=== PATIENT | male | born 1940 | race Caucasian/White ===

== ENCOUNTER 2017-04-08 18:31 | Inpatient (IN) | payer MEDICARE ==
[~2017-04-08 18:31] MED LIST: ISOVUE-370 76%-LOCM 1 ML ONE
[2017-04-08] MEDS ORDERED: diphenhydrAMINE 50 MG/ML VIAL ONE (19:33)
[2017-04-08] MEDS ORDERED: Famotidine 20 MG TAB ONE (19:33)
[2017-04-08] MEDS ORDERED: methylPREDNISolone Sod Succ/PF 125 MG/2 ML VIAL ONE (19:33)
[2017-04-08 19:37] LABS: #Basophils 0.1 thou/uL (0.0-0.2); #Eosinphils 0.2 thou/uL (0.0-0.7); #Lymphocytes 1.8 thou/uL (1.20-3.40); #Monocytes 0.9 thou/uL (0.11-0.59); #Neutrophils 4.4 thou/uL (1.40-6.50); %Eosinophils 3.2 % (0.0-10.0); %Lymphocytes 24.6 % (21.0-51.0); Hematocrit 39.9 % (42.0-52.0); Mean Platelet Volume 7.5 fL (7.4-10.4); Red Blood Cell (RBC) Count 3.98 mill/uL (4.70-6.10); White Blood Cell (WBC) Count 7.4 thou/uL (4.8-10.8)
[2017-04-08] MEDS ORDERED: Water For Inject, Bacteriostat 30 ML ONE (19:37)
[2017-04-08 19:44] LABS: PTT 26.1 SEC (22.9-36.1); Prothrombin Time 13.9 SEC (12.0-14.7)
[2017-04-08 19:58] LABS: Digoxin Less than 0.15 ng/mL (0.8-2.0)
[2017-04-08 20:00] LABS: ALT (SGPT) 59 U/L (8-55); AST (SGOT) 45 U/L (5-34); Alkaline Phosphatase 72 U/L (40-150); Anion Gap 16 mmol/L (10-20); BUN (Urea Nitrogen) 18 mg/dL (8.4-25.7); Bilirubin, Total 0.6 mg/dL (0.2-1.2); CK (CPK) 187 U/L (30-200); Calc. Creatinine Clearance 0 mL/min (70-130); Calcium 7.4 mg/dL (7.8-10.44); Carbon Dioxide 24 mmol/L (23-31); Chloride 103 mmol/L (98-107); Estimated GFR-MDRD 58; Globulin 2.8 g/dL (2.4-3.5); Lipase 23 U/L (8-78); Protein, Total 6.6 g/dL (5.8-8.1)
[2017-04-08 20:03] LABS: Troponin I 0.013 ng/mL (< 0.028)
[2017-04-08] MEDS ORDERED: Calcium Chloride 1 GM/10 ML Abboject SYRINGE ONE (20:48)
--- NOTE | 2017-04-08 22:24 | CT ---
CT ANGIO OF CHEST PERFORMED WITH INTRAVENOUS CONTRAST ENHANCEMENT WITH 3D RECONSTRUCTIONS 04/08/17 HISTORY: Chest pain. Elevated D-dimer. The lungs are clear of any infiltrative process. There is some mild chronic appearing lung changes s een. Old left rib fractures. No pulmonary nodules are identified. No significant mediastinal or hilar adenopathy. The thoracic aorta is normal in caliber. There is good pulmonary artery opacification with no CT evidence for pulmonary embolus. The visualized liver parenchyma shows no focal findings. IMPRESSION: No CT evidence for pulmonary embolus. POS: [facility]
[2017-04-08] MEDS ORDERED: Magnesium Sulfate 3 GM in Sodium Chloride 0.9% 100 ML IVPB SCH (22:30)
[2017-04-09] MEDS ORDERED: Atropine Sulfate 1 mg/10 ml Syringe ONE (00:02)
[2017-04-09] MEDS ORDERED: DOPamine 400 MG/D5W 250 ML 250 ML ONE (00:16)
[2017-04-09] MEDS ORDERED: Ondansetron HCl/PF 4 MG/2 ML Vial ONE (00:37)
[2017-04-09 01:21] LABS: #Lymphocytes 1.5 thou/uL (1.20-3.40); #Monocytes 0.1 thou/uL (0.11-0.59); #Neutrophils 8.9 thou/uL (1.40-6.50); %Basophils 0.4 % (0.0-1.0); %Eosinophils 0.3 % (0.0-10.0); %Lymphocytes 13.9 % (21.0-51.0); %Monocytes 1.3 % (0.0-10.0); Hematocrit 45.4 % (42.0-52.0); Mean Platelet Volume 7.7 fL (7.4-10.4); Red Blood Cell (RBC) Count 4.52 mill/uL (4.70-6.10); White Blood Cell (WBC) Count 10.6 thou/uL (4.8-10.8)
[2017-04-09 01:45] LABS: Troponin I Less than 0.010 ng/mL (< 0.028)
[2017-04-09] MEDS ORDERED: Sodium Chloride 0.45% 1,000 ML IV SCH (02:45)
[2017-04-09] MEDS ORDERED: Senokot 8.6 MG TAB PO PRN ×2 (03:12)
[2017-04-09] MEDS ORDERED: Bisacodyl 5 MG TAB PO PRN ×2 (03:12)
[2017-04-09] MEDS ORDERED: Acetaminophen 325 MG TAB PO PRN (03:12)
[2017-04-09] MEDS ORDERED: Mag-Al 1200 mg/1200 mg/30 ML UDCUP PO PRN (03:12)
[2017-04-09] MEDS ORDERED: Benzonatate 100 MG CAP PO PRN (03:12)
[2017-04-09] MEDS ORDERED: Ondansetron HCl/PF 4 MG/2 ML Vial IVP PRN (03:12)
[2017-04-09] MEDS ORDERED: traMADol HCl 50 MG TAB PO PRN (03:12)
[2017-04-09] MEDS ORDERED: Loratadine 10 MG TAB PO PRN (03:12)
[2017-04-09] MEDS ORDERED: Diabetic Tussin 200 MG/10 ML UDCUP PO PRN (03:12)
[2017-04-09] MEDS ORDERED: hydrALAZINE 20 MG/ML VIAL SLOW IVP PRN (03:12)
[2017-04-09] MEDS ORDERED: Calcium Carbonate 500 MG ChewTAB PO PRN (03:12)
[2017-04-09] MEDS ORDERED: Nitroglycerin 0.4 MG TAB (25 Tab Bottle) SL PRN (03:12)
[2017-04-09] MEDS ORDERED: Ondansetron ODT 4 MG TAB PO PRN (03:12)
[2017-04-09 03:15] VITALS: BMI 27.0
[2017-04-09] MEDS ORDERED: Furosemide 20 MG TAB PO SCH (03:45)
[2017-04-09 05:19] LABS: #Lymphocytes 0.5 thou/uL (1.20-3.40); #Monocytes 0.2 thou/uL (0.11-0.59); #Neutrophils 11.5 thou/uL (1.40-6.50); %Eosinophils 0.2 % (0.0-10.0); %Lymphocytes 4.2 % (21.0-51.0); %Monocytes 1.8 % (0.0-10.0); Hematocrit 44.7 % (42.0-52.0); Mean Platelet Volume 8.1 fL (7.4-10.4); Red Blood Cell (RBC) Count 4.47 mill/uL (4.70-6.10); White Blood Cell (WBC) Count 12.3 thou/uL (4.8-10.8)
[2017-04-09 05:46] LABS: Anion Gap 21 mmol/L (10-20); BUN (Urea Nitrogen) 20 mg/dL (8.4-25.7); Calc. Creatinine Clearance 43 mL/min (70-130); Calcium 8.2 mg/dL (7.8-10.44); Carbon Dioxide 18 mmol/L (23-31); Chloride 103 mmol/L (98-107); Estimated GFR-MDRD 42; Magnesium 1.2 mg/dL (1.6-2.6)
[2017-04-09] MEDS: DOPamine 400 MG/D5W 250 ML 250 ML IVPB PRN (05:52)
--- NOTE | 2017-04-09 07:46 | HP ---
DATE OF ADMISSION: 04/09/2017 PRIMARY CARE PHYSICIAN: Juanito Chawla MD CHIEF COMPLAINT: Chest discomfort. HISTORY OF PRESENT ILLNESS: Mr. Giraldo is a very pleasant 76-year-old male with past [facility] history of hypertension, who presented to the ER with the above-mentioned complaints. The histo ry is mainly obtained by the patient himself and his present at the bedside. The electronic ok dical records have been reviewed and the case has been discussed with the admitting ER physician. According to Mr. Giraldo, he has been feeling unwell for the last 3 days. This morning, he started t o have some chest pressure associated with some shortness of breath and diaphoresis. He attributes these symptoms to sinus congestion. He took his blood pressure earlier this morning and found to be low and he presented to the ER. In the emergency room, his blood pressure was 173/74. He was found to be bradycardic with a pulse o f 47. His oxygen saturation was adequate at 98% on room air. He also did give some history of ting ling in his fingers which is ongoing, but his main complaint was overall generalized weakness and ma laise. A 12-lead EKG done in the emergency room showed sinus bradycardia with first degree AV block and right bundle branch block. EKG was repeated multiple times. Second EKG was again consistent w ith first-degree AV block and third EKG showed complete heart block with wide QRS rhythm with freque nt PVCs. The patient did alvaro down to 30s at one point of time and EKG was consistent with complet e heart block. He did receive atropine for this. His calcium and magnesium were found to be low as well as for which he also received supplementation and is now more hemodynamically stable with hear t rate in the higher 40s, low 50s. He is currently being admitted for symptomatic bradycardia to cr itical care unit. He is otherwise awake, alert, oriented x3. The patient otherwise denies any recent illnesses. No fever, no chills, no cough. He had some diap horesis and shortness of breath today, but denies any orthopnea, PND, dyspnea on exertion, or lower extremity edema. He denies any nausea, vomiting, diarrhea, hematochezia, or melena. He does compla in of some urinary hesitancy since he has received calcium and magnesium in the emergency room. He does have some complaints of nighttime urinary retention, given his history of prostatic enlargement per the patient. PAST MEDICAL HISTORY: Hypertension. PAST SURGICAL HISTORY: Cholecystectomy and bilateral hip surgery. PSYCHIATRIC HISTORY: No anxiety or depression. SOCIAL HISTORY: He is and lives with his family. No history of drug, tobacco or alcohol ab use. FAMILY HISTORY: No significant family history of premature coronary artery disease, stroke, or canc er. ALLERGIES: Include IODINE and IODINE CONTAINING PRODUCTS. CURRENT MEDICATIONS: Include omeprazole 20 mg daily, losartan/hydrochlorothiazide 100/25 mg daily, fish oil 1000 mg daily, azelastine eyedrops b.i.d. and aspirin 81 mg daily. REVIEW OF SYSTEMS: The following complete review of systems was negative, unless otherwise mentione d in the HPI or below: Constitutional: Weight loss or gain, ability to conduct usual activities. Skin: Rash, itching. Eyes: Double vision, pain. ENT/Mouth: Nose bleeding, neck stiffness, pain, tenderness. Cardiovascular: Palpitations, dyspnea on exertion, orthopnea. Respiratory: Shortness of breath, wheezing, cough, hemoptysis, fever or night sweats. Gastrointestinal: Poor appetite, abdominal pain, heartburn, nausea, vomiting, constipation, or diar padma. Genitourinary: Urgency, frequency, dysuria, nocturia. Musculoskeletal: Pain, swelling. Neurologic/Psychiatric: Anxiety, depression. Allergy/Immunologic: Skin rash, bleeding tendency. Negative except for those mentioned in the history and physical. PHYSICAL EXAMINATION: VITAL SIGNS: Most recent vital signs include, temperature 98.3, heart rate anywhere from 45 to 50, respirations 16, saturating 100% on room air, blood pressure 146/40. GENERAL: He does appear somewhat clammy, but awake, alert, oriented x3. He is diaphoretic. No acu te distress. is at bedside. HEENT: Mucous membrane is moist and pink. No oropharyngeal exudate or erythema. Head is normoceph alic, atraumatic. Pupils equal, reactive to light and accommodation. Extraocular movements intact. NECK: Supple without any lymphadenopathy, JVD or bruit. CHEST: Clear to auscultation with the exception of few bibasilar rales. CARDIOVASCULAR: Rate and rhythm is regular, but somewhat slow and bradycardic range on auscultation . ABDOMEN: Soft, nontender, nondistended, positive bowel sounds. No guarding, rebound or rigidity. EXTREMITIES: Free of any cyanosis, clubbing, or edema. NEUROLOGIC: Nonfocal. SKIN: Warm and dry to touch. PSYCHIATRIC: Normal affect. VASCULAR: +2 pedal pulses felt bilaterally. LABORATORY DATA: CBC shows WBC of 7.4, hemoglobin 14, platelet count of 224. Coagulation studies w ithin normal limits. Serum chemistries unremarkable except for calcium low at 7.4 with magnesium 0. 7, AST 45, ALT 59, normal total bilirubin and alkaline phosphatase. Serial cardiac enzymes, troponi n less than 1.0 with normal CK-MB twice. Digoxin level is less than 0.15. CT angio was done in the emergency room, which was negative for any evidence of pulmonary embolism. A 12-lead EKG by my review, the first EKG showed sinus bradycardia with AV block of first degree. Second EKG shows sinus bradycardia with a heart rate of 46 with complete right bundle branch block a nd third EKG showed complete heart block with ventricular rate of 82 beats per minute with wide QRS and frequent PVCs. The patient's chest x-ray reportedly was unremarkable at the outside emergency r oom. His D-dimer was elevated and his BNP was 355. IMPRESSION AND PLAN: 1. Sinus bradycardia. Dr. Le geographic information systems engineer for Cardiology was consulted after the patient developed complete heart block. On his recommendation, the patient has been started on dopamine drip and temp orary pacer pads have been placed in. He is getting magnesium and calcium supplementation and reche ck shortly here on. He will be continued to monitor in the CCU and Cardiology will see the patient in the morning. Atropine also has been given in the ER x2. We will continue the dopamine drip for now and monitor for any hemodynamic instability. Thankfully, the patient is hemodynamically stable at this point. We will also obtain a transthoracic echocardiogram to ascertain the cause of his sin us bradycardia, but it is most likely secondary to electrolyte imbalances. We will continue to tren d serial cardiac enzymes, the likelihood of acute coronary syndrome is low at this time. He will be on continuous heart monitoring. 2. Hypomagnesemia and hypocalcemia. Hypocalcemia is likely secondary to low magnesium at this time . Both have been supplemented and we will recheck. We will also check a PTH and vitamin D level to rule out other causes of hypocalcemia. 3. History of hypertension that we will restart his home medications of losartan and hydrochlorothi azide if he remains stable. We will hold off for now. 4. Urinary retention. The patient is complaining of difficulty with urination and hesitancy for th e last few hours. The bedside bladder scan was done which showed 90 mL of urine. He has received 1 liter of IV fluids in the emergency room. We will hold off on any more IV fluids as he is hemodyna mically stable and give him 1 dose of Lasix. He appears somewhat on the fluid overloaded side. Ech o has been ordered. 5. Code status: FULL CODE, discussed with the patient. 6. Deep venous thrombosis and gastrointestinal prophylaxis. 7. Disposition: Mr. Giraldo is being admitted for symptomatic bradycardia and further management wi ll depend upon his clinical course. He will be kept n.p.o. for Cardiology evaluation in the morning . Continue CCU monitoring at this time. Estimated length of stay at least 2-3 midnights.
[2017-04-09] MEDS ORDERED: FLU VACC TS2017-18 (>65YR) 0.5 ML SYRINGE IM ONE (09:00)
[2017-04-09] MEDS ORDERED: Magnesium 2 GM/NS 0.9% 100 ML 2 GM in Premix Bag 1 BAG IVPB SCH (09:30)
[2017-04-09] MEDS: Famotidine 20 MG TAB PO SCH ×2 (09:49→20:11)
[2017-04-09] MEDS ORDERED: Pot Chloride/Pot Bicarb/Cit Ac 25 mEq Effervescent Tablet PO SCH (10:00)
[2017-04-09] MEDS ORDERED: Magnesium Sulfate 4 GM in Sodium Chloride 0.9% 250 ML 250 ML IVPB SCH (10:30)
[2017-04-09] MEDS: Fluticasone Propionate Nasal Spray 16 gm Bottle NASAL SCH (10:37)
--- NOTE | 2017-04-09 10:42 | CON ---
DATE OF CONSULTATION: 04/09/2017 CARDIOLOGY CONSULTATION REASON FOR CONSULTATION: Complete heart block. HISTORY OF PRESENT ILLNESS: Mr. Giraldo is a very pleasant 76-year-old white gentleman who comes to the hospital for lightheadedness and slight chest discomfort. He presented last night and he was fo und to be in complete heart block, heart rate in the mid to upper 30s. He was admitted and started on a dopamine drip and Cardiology has been consulted for further evaluation. He has been on dopamin e since last night, his heart rate did not really change much, it has been in the 40s to 50s, which is similar to what he was downstairs when he came in. His blood pressure has remained stable in the 140s to 150s. He tells me that he has been feeling different since Tuesday, so about 3 or 4 days ago, he has been feeling lightheaded, felt he was going to pass out at one point, but he was workin g outside really hard. He has been taking it easy for the last few days until yesterday. He decide d he needed to come in because he felt so tired and weak. He denies any chest pain, tightness or pr essure currently. PAST MEDICAL HISTORY: Hypertension. PAST SURGICAL HISTORY: 1. Cholecystectomy. 2. Bilateral hip surgery. SOCIAL HISTORY: No alcohol, tobacco or drugs. FAMILY HISTORY: Noncontributory. OUTPATIENT MEDICATIONS: Include, 1. Omeprazole 20 mg a day. 2. Losartan with hydrochlorothiazide 100/25 mg a day. 3. Fish oil 1000 mg b.i.d. 4. Azelastine eyedrops b.i.d. 5. Aspirin 81 a day. ALLERGIES: IODINE. REVIEW OF SYSTEMS: A 12-point review of systems was done and is all negative unless stated in the hi story of present illness. PHYSICAL EXAMINATION: VITAL SIGNS: Temperature 98.3, pulse 47, respiratory rate 17, satting 100% on room air, blood press ure 167/52. GENERAL: Awake, alert, oriented x3, in no distress. HEENT: Normocephalic, atraumatic. NECK: Supple. LUNGS: Clear. CARDIOVASCULAR: S1, S2, no S3 or S4. No murmurs or rubs. ABDOMEN: Soft, positive bowel sounds. EXTREMITIES: No edema. SKIN: Warm and dry. LABORATORY DATA AND IMAGIN. Laboratory work was reviewed. Hematology on admission, white count of 7.4 with hemoglobin of 14 , hematocrit of 39, and platelet count of 224. Coags were unremarkable. CBC: His white count has increased to 12.3. Chemistries on admission were unremarkable with potassium of 3.6, calcium was lo w at 7.4, and magnesium was very low at 0.7. He had 3 grams and is up to 1.2 and potassium is down to 3.4, creatinine went from 1.2-1.6, troponin has been negative x2. BNP was 424. Vitamin D and PT H were normal. Digoxin level was undetectable. 2. CT of the chest was unremarkable with no evidence of PE. 3. EKG shows complete heart block. On my evaluation today, he was in complete heart block briefly and now he is in 2:1 block with intermittent complete heart block. ASSESSMENT AND PLAN: 1. Third degree atrioventricular block. 2. Severe hypomagnesemia. 3. Hypertension. PLAN: Replace magnesium aggressively. He already received 3 grams and I am going to give him 4 mor e grams today to try to get magnesium up to 2. After magnesium has been replaced, we will replace p otassium. He is currently hemodynamically stable and asymptomatic. We will hold off on a temporary pacemaker at this time. His dopamine infusion did not really change his heart rate, so we will sto p it and see how his heart rate does. Hopefully by replacing his magnesium, his heart rate will imp rove. Otherwise, we will plan on doing a permanent pacemaker on Tuesday. We will get blood cultures to make sure that the elevated white count is nothing infectious. Most likely cause of his hypomag nesemia is hydrochlorothiazide and his losartan, so will have to stop this on discharge. Thank you for letting us to participate in the care of your patient. We will follow. Over 45 minutes of critical care were delivered bedside.
[2017-04-09] MEDS: Pot Chloride/Pot Bicarb/Cit Ac 25 mEq Effervescent Tablet PO SCH (11:16)
[2017-04-09] MEDS: HYDROcodone/Acetaminophen 5/325 mg Tablet PO PRN ×2 (13:16→18:14)
--- NOTE | 2017-04-09 15:34 | PDOC.PN ---
- Subjective Encounter Start Date: 04/09/17 Encounter Start Time: 15:30 Subjective: f/u for 3rd degree heart block and chest pain. Tx initially with Dopamine -: and Atropine. Also tx for hypomagnesemia and hypokalemia. Pt -: asymptomatic currently. - Objective MAR Reviewed: Yes Vital Signs & Weight: Vital Signs (12 hours) Temp Pulse Resp Pulse Ox 04/09/17 12:00 98.2 F 04/09/17 08:00 98.4 F 44 L 20 100 04/09/17 07:57 100 04/09/17 03:49 98.3 F 47 L 16 100 Weight Weight 167 lb 8.821 oz Most Recent Monitor Data Heart Rate from ECG 50 NIBP 120/45 NIBP BP-Mean 94 Respiration from ECG 18 SpO2 100 I&O: 04/08/17 04/09/17 04/10/17 06:59 06:59 06:59 Intake Total 209 606 Output Total 225 660 Balance -16 54 Result Diagrams: 04/09/17 04:17 04/09/17 04:17 Additional Labs: Laboratory Tests 04/08/17 04/08/17 04/08/17 15:50 19:28 19:28 WBC Potassium 3.6 Carbon Dioxide 24 Creatinine 1.22 Magnesium AST 45 H ALT 59 H B-Natriuretic Peptide 355.8 H 25-OH Vitamin D Total PTH Intact Digoxin Less than 0.15 L 04/08/17 04/09/17 04/09/17 19:38 01:05 04:17 WBC 10.6 Potassium Carbon Dioxide Creatinine Magnesium 0.7 L* 1.2 L AST ALT B-Natriuretic Peptide 25-OH Vitamin D Total PTH Intact Digoxin 04/09/17 04/09/17 04/09/17 04:17 04:17 04:17 WBC Potassium Carbon Dioxide Creatinine Magnesium AST ALT B-Natriuretic Peptide 424.6 H 25-OH Vitamin D Total 45.4 PTH Intact 70.3 Digoxin Radiology Reviewed by me: Yes (CTA chest - no PE's) EKG Reviewed by me: Yes (Tele - 3rd degree AVB) Phys Exam - Physical Examination Constitutional: NAD HEENT: PERRLA, oral pharynx no lesions Neck: no JVD, supple Respiratory: no wheezing, clear to auscultation bilateral Cardiovascular: RRR Gastrointestinal: soft, non-tender, no distention, positive bowel sounds Musculoskeletal: no edema, pulses present Neurological: normal sensation, moves all 4 limbs Psychiatric: A&O x 3 Skin: normal turgor, cap refill <2 seconds Dx/Plan (1) Third degree heart block Code(s): I44.2 - ATRIOVENTRICULAR BLOCK, COMPLETE Status: Acute Comment: Complete heart block, plan for PM placement on 04/11/17, avoid AV paige blocking agents (2) KRISTYN (acute kidney injury) Code(s): N17.9 - ACUTE KIDNEY FAILURE, UNSPECIFIED Status: Acute Comment: Mild KRISTYN, avoid nephrotoxic meds and contrast media (3) CKD (chronic kidney disease) stage 2, GFR 60-89 ml/min Code(s): N18.2 - CHRONIC KIDNEY DISEASE, STAGE 2 (MILD) Status: Chronic (4) Hypomagnesemia Code(s): E83.42 - HYPOMAGNESEMIA Status: Acute Comment: s/p total Mg 6gm IV given, check Mg++ level in am (5) Hypokalemia Code(s): E87.6 - HYPOKALEMIA Status: Acute Comment: Replace KCL and repeat K + level in am - Plan plan discussed w/ family, DVT proph w/SCDs Continue supportive mgmt -: Avoid AV paige blocking agents -: Plan for PM placement on 04/11/17 -: Replace Mg++ and KCL -: AM lab: CMP, CBC, Mg++, B12/Folate * .
--- NOTE | 2017-04-09 17:04 | CON ---
DATE OF CONSULTATION: 04/09/2017 Ed Giraldo is a 76-year-old pleasant gentleman from [place], [place], who [place] [facility] [place] and was found to have bradycardia. He was told to come to the hospital here at [place]. He subsequently complained of apparently so me difficulty breathing and some severe chest pain. CT chest angio was done which was negative. Fo rmer smoker, quit smoking 30 years ago. Complains of some numbness and tingling in his hands. PAST MEDICAL HISTORY: Mainly for hypertension. PAST SURGICAL HISTORY: Gallbladder, colon resection for diverticulitis, orthopedic surgery. ALLERGIES: IODINE. MEDICATIONS: List of medicine from home, Prozac 20, vitamin, losartan, fish oil. PHYSICAL EXAMINATION: GENERAL: He appears to be in no distress. His pulse is 42 on dopamine. VITAL SIGNS: Blood pressure 160/60. CHEST: Decreased breath sounds, no wheezing. CARDIAC: Normal S1, S2. No gallops. ABDOMEN: Soft, no masses. LABORATORY DATA: White count 12,000, H\T\H 15 and 43, platelet count 294, creatinine 1.6. IMPRESSION: 1. Dyspnea, no evidence of pulmonary emboli, no significant pulmonary issues at this time. 2. Bradycardia. 3. Hypertension. Await cardiac input. Otherwise, supportive care. DVT prophylaxis and proton pump inhibitors. We w ill follow while in the ICU.
[2017-04-09] MEDS: ALPRAZolam 0.25 MG TAB PO PRN (20:11)
[2017-04-10 04:59] LABS: ALT (SGPT) 49 U/L (8-55); AST (SGOT) 27 U/L (5-34); Alkaline Phosphatase 62 U/L (40-150); Anion Gap 13 mmol/L (10-20); BUN (Urea Nitrogen) 27 mg/dL (8.4-25.7); Bilirubin, Total 0.7 mg/dL (0.2-1.2); Calc. Creatinine Clearance 50 mL/min (70-130); Calcium 7.7 mg/dL (7.8-10.44); Carbon Dioxide 25 mmol/L (23-31); Chloride 105 mmol/L (98-107); Estimated GFR-MDRD 50; Globulin 2.9 g/dL (2.4-3.5); Protein, Total 6.5 g/dL (5.8-8.1)
[2017-04-10 05:26] LABS: Band 1 % (5-11); Hematocrit 36.2 % (42.0-52.0); Macrocytosis SLIGHT = 6-15 cells (100X) (0-5/hpf); Mean Platelet Volume 8.1 fL (7.4-10.4); Neutrophil 81 % (42-75); Reactive Lymphocytes 1 % (0-10); Red Blood Cell (RBC) Count 3.57 mill/uL (4.70-6.10); White Blood Cell (WBC) Count 12.5 thou/uL (4.8-10.8)
[2017-04-10] MEDS: Fluticasone Propionate Nasal Spray 16 gm Bottle NASAL SCH (08:54)
[2017-04-10] MEDS: ALPRAZolam 0.25 MG TAB PO PRN ×2 (08:54→15:59)
--- NOTE | 2017-04-10 09:40 | PDOC.PN ---
- Subjective Encounter Start Date: 04/10/17 Encounter Start Time: 09:38 Patient seen and examined. No new complaints. No overnight events. c/o sinus blockage and fatigue. No chest pain or sob. at bedside. sitting up in chair. off dopamine drip. - Objective MAR Reviewed: Yes Vital Signs & Weight: Vital Signs (12 hours) Temp Pulse Resp Pulse Ox 04/10/17 08:00 98.5 F 46 L 17 100 04/10/17 07:00 100 04/10/17 03:00 98.3 F 04/09/17 23:00 98.0 F Weight Weight 167 lb 8.821 oz Most Recent Monitor Data Heart Rate from ECG 57 NIBP 149/46 NIBP BP-Mean 70 Respiration from ECG 27 SpO2 100 I&O: 04/09/17 04/10/17 04/11/17 06:59 06:59 06:59 Intake Total 209 2036 400 Output Total 225 1560 425 Balance -16 476 -25 Result Diagrams: 04/10/17 03:50 04/10/17 03:50 EKG Reviewed by me: Yes Phys Exam - Physical Examination Constitutional: NAD HEENT: sclera anicteric Neck: supple reduced breath sounds. nasal congestion present Respiratory: no rales, wheezing present bradycardic Musculoskeletal: no edema Neurological: non-focal, moves all 4 limbs Psychiatric: normal affect, A&O x 3 Skin: no rash, normal turgor Dx/Plan (1) Sinusitis nasal Code(s): J32.9 - CHRONIC SINUSITIS, UNSPECIFIED Status: Acute (2) Sinusitis, acute Code(s): J01.90 - ACUTE SINUSITIS, UNSPECIFIED Status: Acute (3) KRISTYN (acute kidney injury) Code(s): N17.9 - ACUTE KIDNEY FAILURE, UNSPECIFIED Status: Acute Comment: Mild KRISTYN, avoid nephrotoxic meds and contrast media (4) Hypokalemia Code(s): E87.6 - HYPOKALEMIA Status: Acute Comment: Replace KCL and repeat K + level in am (5) Hypomagnesemia Code(s): E83.42 - HYPOMAGNESEMIA Status: Acute Comment: s/p total Mg 6gm IV given, check Mg++ level in am (6) Third degree heart block Code(s): I44.2 - ATRIOVENTRICULAR BLOCK, COMPLETE Status: Acute Comment: Complete heart block, plan for PM placement on 04/11/17, avoid AV paige blocking agents - Plan cont current plan of care, plan discussed w/ family, continue antibiotics, out of bed/ambulate, DVT proph w/SCDs * . Mg level better Monitor. start on oral MgO. check AM labs. f/u with cardiology - ?PM in AM. Monitor HR closely. start Zpak for sinusitis Duoneb for wheezing.
[2017-04-10] MEDS: HYDROcodone/Acetaminophen 5/325 mg Tablet PO PRN (10:07)
[2017-04-10 10:17] LABS: #Eosinphils 0.1 thou/uL (0.0-0.7); #Lymphocytes 1.2 thou/uL (1.20-3.40); #Monocytes 1.1 thou/uL (0.11-0.59); #Neutrophils 12.8 thou/uL (1.40-6.50); %Basophils 0.3 % (0.0-1.0); %Eosinophils 0.5 % (0.0-10.0); %Lymphocytes 7.7 % (21.0-51.0); %Monocytes 7.1 % (0.0-10.0); Hematocrit 39.9 % (42.0-52.0); Mean Platelet Volume 7.6 fL (7.4-10.4); Red Blood Cell (RBC) Count 3.95 mill/uL (4.70-6.10); White Blood Cell (WBC) Count 15.1 thou/uL (4.8-10.8)
[2017-04-10] MEDS ORDERED: predniSONE 50 MG TAB PO SCH (12:00)
[2017-04-10] MEDS: predniSONE 50 MG TAB PO SCH ×2 (12:27→16:00)
--- NOTE | 2017-04-10 12:37 | PRG ---
DATE OF SERVICE: 04/10/2017 SUBJECTIVE: Enzo this morning is awake, alert, responsive, in no distress. He had an echocardiogram during the procedure and he was in complete heart block. Dr. Le addressed the issues. The patient denies any difficulty breathing. PHYSICAL EXAMINATION: VITAL SIGNS: Blood pressure 130/54, sats are 98%, respirations 18. CHEST: Decreased breath sounds without any wheezing. CARDIAC: Normal S1, S2. No gallops. ABDOMEN: Soft. No masses. LABORATORY DATA: White count 12,000, H\T\H 12 and 36, platelet count normal. Creatinine 1.38. IMPRESSION: 1. Complete heart block. 2. Hypertension. PLAN: Await disposition per Cardiology. We will follow while in the ICU.
--- NOTE | 2017-04-10 17:05 | PDOC.CTH ---
Cardiology Progress Note - Subjective He is feeling well. he remains in complete heart block but HR in the 50-60's with normal BP. - Objective Vital Signs Temp Pulse Resp Pulse Ox 04/10/17 16:00 98.7 F 04/10/17 15:42 86 19 96 04/10/17 12:00 98 F 04/10/17 11:28 50 L 22 H 97 04/10/17 08:00 98.5 F 46 L 17 100 04/10/17 07:00 100 Weight 167 lb 8.821 oz 04/09/17 04/10/17 04/11/17 06:59 06:59 06:59 Intake Total 209 2036 750 Output Total 225 1560 725 Balance -16 476 25 - Physical Examination General/Neuro: alert & oriented x3, NAD Neck: no JVD present Lungs: unlabored respirations Heart: RRR Abdomen: NT/ND Extremities: other: (no edema) - Telemetry Telemetry Rhythm: CHB, HR 50's - Labs Result Diagrams: 04/10/17 09:57 04/10/17 03:50 Troponin/CKMB CK-MB (CK-2) 1.9 ng/mL (0-6.6) 04/09/17 01:06 Troponin I Less than 0.010 ng/mL (< 0.028) 04/09/17 01:06 - Assessment/Plan 1. 3rd degree AV block 2. Hypomagnesemia, resolved. PLAN: - PPM in the morning. - We spoke about risks and benefits of the procedure and he agrees to proceed.
[2017-04-10] MEDS ORDERED: BEER 1 CAN PO SCH (21:00)
[2017-04-10] MEDS ORDERED: ALPRAZolam 0.5 MG TAB PO SCH (21:15)
[2017-04-10] MEDS: Magnesium Oxide 400 MG TAB PO SCH (21:21)
[2017-04-10] MEDS: Famotidine 20 MG TAB PO SCH (21:21)
[2017-04-11] MEDS ORDERED: Diazepam 5 MG TAB PO PRN (03:22)
[2017-04-11] MEDS ORDERED: Thiamine HCl 200 MG/2 ML VIAL IM SCH (03:30)
[2017-04-11] MEDS ORDERED: Diazepam 5 MG TAB PO SCH (03:30)
[2017-04-11 05:24] LABS: #Lymphocytes 0.4 thou/uL (1.20-3.40); #Monocytes 0.9 thou/uL (0.11-0.59); #Neutrophils 11.5 thou/uL (1.40-6.50); %Eosinophils 0.1 % (0.0-10.0); Hematocrit 35.9 % (42.0-52.0); Mean Platelet Volume 8.2 fL (7.4-10.4); White Blood Cell (WBC) Count 12.7 thou/uL (4.8-10.8)
[2017-04-11 05:36] LABS: ALT (SGPT) 65 U/L (8-55); AST (SGOT) 36 U/L (5-34); Alkaline Phosphatase 62 U/L (40-150); Anion Gap 12 mmol/L (10-20); BUN (Urea Nitrogen) 35 mg/dL (8.4-25.7); Bilirubin, Total 0.5 mg/dL (0.2-1.2); Calc. Creatinine Clearance 38 mL/min (70-130); Calcium 7.9 mg/dL (7.8-10.44); Carbon Dioxide 26 mmol/L (23-31); Chloride 105 mmol/L (98-107); Estimated GFR-MDRD 37; Globulin 2.8 g/dL (2.4-3.5); Magnesium 1.7 mg/dL (1.6-2.6); Protein, Total 6.3 g/dL (5.8-8.1)
[2017-04-11] MEDS ORDERED: diphenhydrAMINE 50 MG/ML VIAL IVP SCH (06:00)
[2017-04-11] MEDS ORDERED: Famotidine/PF 20 mg/2ml Vial SLOW IVP SCH (06:00)
[2017-04-11] MEDS ORDERED: CEFAZOLIN 1 GM VIAL ONE ×2 (07:39→15:25)
[2017-04-11] MEDS ORDERED: CEFAZOLIN/Water 2 GM/20 ML SYRINGE ONE ×2 (07:39→15:25)
[2017-04-11] MEDS ORDERED: Gentamicin 80 MG/2 ML VIAL ONE ×2 (07:39→15:25)
[2017-04-11] MEDS: predniSONE 50 MG TAB PO SCH (07:53)
[2017-04-11] MEDS: Pot Chloride/Pot Bicarb/Cit Ac 25 mEq Effervescent Tablet PO SCH (08:00)
[2017-04-11] MEDS: Multivitamin W/ Minerals 1 TAB PO SCH (09:00)
--- NOTE | 2017-04-11 09:54 | PRG ---
DATE OF SERVICE: 04/11/2017 This morning he is awake, alert, responsive. He is due for a pacemaker. PHYSICAL EXAMINATION: VITAL SIGNS: Blood pressure 120/45, sats are 97%, respirations 18. CHEST: Chest revealed decreased breath sounds, no wheezing. CARDIAC: Normal S1-S2. No gallops. ABDOMEN: Soft, no masses. LABORATORY DATA: White count 12,000, H\T\H 12 and 36, platelet count is normal. Electrolytes are n ormal. Creatinine 1.7. IMPRESSION: 1. Complete heart block. 2. Renal failure. PLAN: Continue observation in the ICU. I will follow.
[2017-04-11] MEDS: Fluticasone Propionate Nasal Spray 16 gm Bottle NASAL SCH (10:29)
[2017-04-11] MEDS: Azithromycin 250 MG TAB PO SCH (10:30)
[2017-04-11] MEDS: Folic Acid 1 MG TAB PO SCH (10:30)
[2017-04-11] MEDS: Magnesium Oxide 400 MG TAB PO SCH ×2 (10:30→20:57)
[2017-04-11] MEDS: DOPamine 400 MG/D5W 250 ML 250 ML IVPB PRN (10:58)
[2017-04-11] MEDS ORDERED: Magnesium 2 GM/NS 0.9% 100 ML 2 GM in Premix Bag 1 BAG IVPB SCH (11:15)
--- NOTE | 2017-04-11 11:20 | PDOC.PN ---
- Subjective Encounter Start Date: 04/11/17 Encounter Start Time: 11:18 Patient seen and examined. No new complaints. No overnight events. PM placement at 3 pm today. HR dropped to 31. on IVF and NPO no chest pain or dizziness reported. No N/V still having congestion and cough and wheezing. - Objective MAR Reviewed: Yes Vital Signs & Weight: Vital Signs (12 hours) Temp Pulse Resp Pulse Ox 04/11/17 06:57 96 04/11/17 06:54 52 L 21 H 96 04/11/17 04:00 97.9 F 04/11/17 00:00 98.7 F Weight Weight 167 lb 8.821 oz Most Recent Monitor Data Heart Rate from ECG 40 NIBP 125/45 NIBP BP-Mean 88 Respiration from ECG 23 SpO2 98 I&O: 04/10/17 04/11/17 04/12/17 06:59 06:59 06:59 Intake Total 2036 1430 40 Output Total 1560 1175 200 Balance 476 255 -160 Result Diagrams: 04/11/17 04:12 04/11/17 04:12 Phys Exam - Physical Examination Constitutional: NAD HEENT: sclera anicteric Neck: supple Respiratory: wheezing present Cardiovascular: no significant murmur bradycardic Gastrointestinal: soft Musculoskeletal: no edema Neurological: non-focal Psychiatric: normal affect Skin: no rash, normal turgor Dx/Plan (1) Sinusitis nasal Code(s): J32.9 - CHRONIC SINUSITIS, UNSPECIFIED Status: Acute (2) Sinusitis, acute Code(s): J01.90 - ACUTE SINUSITIS, UNSPECIFIED Status: Acute (3) KRISTYN (acute kidney injury) Code(s): N17.9 - ACUTE KIDNEY FAILURE, UNSPECIFIED Status: Acute Comment: Mild KRISTYN, avoid nephrotoxic meds and contrast media (4) Hypokalemia Code(s): E87.6 - HYPOKALEMIA Status: Acute Comment: Replace KCL and repeat K + level in am (5) Hypomagnesemia Code(s): E83.42 - HYPOMAGNESEMIA Status: Acute Comment: s/p total Mg 6gm IV given, check Mg++ level in am (6) Third degree heart block Code(s): I44.2 - ATRIOVENTRICULAR BLOCK, COMPLETE Status: Acute Comment: Complete heart block, plan for PM placement on 04/11/17, avoid AV paige blocking agents - Plan plan discussed w/ family, continue antibiotics, PT/OT, DVT proph w/SCDs * . IV fluids as tolerated. AM labs. will continue Duonebs and Zpak. Appreciated cardio and PCCM input. Pacemaker today. Monitor K and Mg. continue MgO as tolerated.
[2017-04-11] MEDS ORDERED: Magnesium 2 GM/NS 0.9% 50 ML 2 GM in Premix Bag 1 BAG IVPB SCH (12:00)
--- NOTE | 2017-04-11 16:13 | EKG ---
Test Reason : Blood Pressure : / mmHG Vent. Rate : 047 BPM Atrial Rate : 047 BPM P-R Int : 264 ms QRS Dur : 136 ms QT Int : 486 ms P-R-T Axes : 073 -66 060 degrees QTc Int : 430 ms Sinus bradycardia with 1st degree A-V block Left axis deviation Right bundle branch block Abnormal ECG Confirmed by FABIO MENENDEZ ([id number]) on 04/11/2017 4:13:33 PM Referred By: RAQUEL Confirmed By:FABIO MENENDEZ
[2017-04-11] MEDS ORDERED: Atropine Sulfate 1 mg/1 ml Vial ONE (16:20)
[2017-04-11] MEDS ORDERED: Lidocaine 1% (PF) 30 ML VIAL ONE (16:20)
--- NOTE | 2017-04-11 19:02 | PDOC.CTH ---
Cardiology Progress Note - Subjective He had his PPM placed today and is feeing much better. - Objective Vital Signs Temp Pulse Resp BP Pulse Ox 04/11/17 18:02 98.3 F 98 20 148/67 H 99 04/11/17 17:00 98.4 F 04/11/17 13:44 52 L 16 94 L 04/11/17 12:00 98.0 F 94 L 04/11/17 08:00 98.3 F 52 L 21 H 94 L Weight 167 lb 8.821 oz 04/10/17 04/11/17 04/12/17 06:59 06:59 06:59 Intake Total 2036 1430 616 Output Total 1560 1175 300 Balance 476 255 316 - Physical Examination General/Neuro: alert & oriented x3, NAD Neck: no JVD present Lungs: unlabored respirations Heart: RRR Abdomen: NT/ND Extremities: other: (no edema) - Telemetry Telemetry Rhythm: NSR, V paced - Labs Result Diagrams: 04/11/17 04:12 04/11/17 04:12 Troponin/CKMB CK-MB (CK-2) 1.9 ng/mL (0-6.6) 04/09/17 01:06 Troponin I Less than 0.010 ng/mL (< 0.028) 04/09/17 01:06 - Assessment/Plan 1. 3rd degree AV block 2. Hypomagnesemia, resolved. 3. S/P PPM PLAN: - May discharge home in the morning. - Follow up in my office in 1 month. - Wound check with Dr. Ya nurse in 1 week.
--- NOTE | 2017-04-11 19:23 | RAD ---
AP CHEST: History: Status post cardiac device placement. Date: 04-11-17 Comparison: 04-08-17 FINDINGS: AP chest demonstrates a dual-lead intracardiac pacing device. No evidence of hemo or pneumothorax se en. The lungs are well aerated. No evidence of active intrathoracic disease seen. IMPRESSION: Interval placement of a dual-lead intracardiac pacing device. POS: [facility]
[2017-04-11] MEDS: HYDROcodone/Acetaminophen 5/325 mg Tablet PO PRN (19:39)
[2017-04-11] MEDS: Famotidine 20 MG TAB PO SCH (20:57)
[2017-04-11] MEDS: Sodium Chloride 0.9% 1,000 ML IV SCH (20:58)
[2017-04-11] MEDS: ALPRAZolam 0.25 MG TAB PO PRN (21:03)
[2017-04-12] MEDS ORDERED: Sodium Chloride 0.65% Nasal 44 ML BOT EA NARE PRN (04:00)
[2017-04-12] MEDS ORDERED: Diazepam 5 MG TAB PO PRN (04:00)
[2017-04-12] MEDS: HYDROcodone/Acetaminophen 5/325 mg Tablet PO PRN ×2 (04:41→10:44)
[2017-04-12 04:51] LABS: #Monocytes 1.1 thou/uL (0.11-0.59); #Neutrophils 9.8 thou/uL (1.40-6.50); %Basophils 0.1 % (0.0-1.0); %Eosinophils 0.2 % (0.0-10.0); %Lymphocytes 8.4 % (21.0-51.0); %Monocytes 9.3 % (0.0-10.0); Hematocrit 34.8 % (42.0-52.0); Mean Platelet Volume 7.5 fL (7.4-10.4); Red Blood Cell (RBC) Count 3.47 mill/uL (4.70-6.10); White Blood Cell (WBC) Count 11.9 thou/uL (4.8-10.8)
[2017-04-12 05:12] LABS: Anion Gap 13 mmol/L (10-20); BUN (Urea Nitrogen) 34 mg/dL (8.4-25.7); Calc. Creatinine Clearance 54 mL/min (70-130); Calcium 7.9 mg/dL (7.8-10.44); Carbon Dioxide 25 mmol/L (23-31); Chloride 107 mmol/L (98-107); Estimated GFR-MDRD 56; Magnesium 2.1 mg/dL (1.6-2.6)
--- NOTE | 2017-04-12 07:18 | CCL ---
PROCEDURE NOTE: Date: 04/11/17 PROCEDURE: Pacemaker insertion. INDICATION FOR PROCEDURE: 76-year-old gentleman with third degree heart block, with severe bradycardia, which has been symptom atic. PROCEDURE DETAILS: The patient was taken to the cardiac laborer concrete plant, prepped, and draped in sterile fashion. He underwent a dual-chamber pacemaker insertion without difficulties or complications. Two screw-in leads were pl aced, one in the atrium and one in the ventricle. There were no difficulties or complications encoun tered. The pacemaker was set with the upper rate at 120 and the lower rate was set at 60. The patien t tolerated the procedure well. He was implanted with a Medtronic Advisa dual-chamber pacemaker fro m [employer].
[2017-04-12] MEDS ORDERED: Magnesium Oxide 400 MG TAB PO SCH (09:00)
[2017-04-12] MEDS ORDERED: Losartan Potassium 25 MG TAB PO SCH (10:15)
--- NOTE | 2017-04-12 10:23 | PDOC.PN ---
- Subjective Encounter Start Date: 04/12/17 Encounter Start Time: 10:21 Patient seen and examined. No new complaints. No overnight events. feels good today. family at bedside mild chest pain at PP site No drainage. wants to go home. BP slightly high. - Objective MAR Reviewed: Yes Vital Signs & Weight: Vital Signs (12 hours) Temp Pulse Resp BP Pulse Ox 04/12/17 06:41 80 16 04/12/17 04:00 98.4 F 79 20 183/84 H 93 L Weight Weight 171 lb 4.8 oz Most Recent Monitor Data Heart Rate from ECG 103 NIBP 156/71 NIBP BP-Mean 87 Respiration from ECG 26 SpO2 96 I&O: 04/11/17 04/12/17 04/13/17 06:59 06:59 06:59 Intake Total 1430 1326 Output Total 1175 1000 Balance 255 326 Result Diagrams: 04/12/17 04:23 04/12/17 04:23 Phys Exam - Physical Examination Constitutional: NAD HEENT: sclera anicteric Neck: supple Respiratory: no wheezing, no rales Cardiovascular: RRR Gastrointestinal: soft Musculoskeletal: no edema Neurological: non-focal, moves all 4 limbs Psychiatric: normal affect, A&O x 3 Skin: no rash, normal turgor Dx/Plan (1) Sinusitis nasal Code(s): J32.9 - CHRONIC SINUSITIS, UNSPECIFIED Status: Acute (2) Sinusitis, acute Code(s): J01.90 - ACUTE SINUSITIS, UNSPECIFIED Status: Acute (3) KRISTYN (acute kidney injury) Code(s): N17.9 - ACUTE KIDNEY FAILURE, UNSPECIFIED Status: Acute Comment: Mild KRISTYN, avoid nephrotoxic meds and contrast media (4) Hypokalemia Code(s): E87.6 - HYPOKALEMIA Status: Acute Comment: Replace KCL and repeat K + level in am (5) Hypomagnesemia Code(s): E83.42 - HYPOMAGNESEMIA Status: Acute Comment: s/p total Mg 6gm IV given, check Mg++ level in am (6) Third degree heart block Code(s): I44.2 - ATRIOVENTRICULAR BLOCK, COMPLETE Status: Acute Comment: Complete heart block, plan for PM placement on 04/11/17, avoid AV paige blocking agents - Plan * . DC home today. Stop HCTZ due to hypokalemia and hypomg continue losartan. Zpak for 3 more days. f/u with PCP in one week. f/u with cardio in one month.
[2017-04-12] MEDS: Sodium Chloride 0.9% 1,000 ML IV SCH (10:32)
[2017-04-12] MEDS: Pot Chloride/Pot Bicarb/Cit Ac 25 mEq Effervescent Tablet PO SCH (10:33)
[2017-04-12] MEDS: Azithromycin 250 MG TAB PO SCH (10:33)
[2017-04-12] MEDS: Multivitamin W/ Minerals 1 TAB PO SCH (10:33)
[2017-04-12] MEDS: Folic Acid 1 MG TAB PO SCH (10:34)
[2017-04-12 11:34] VITALS: BP 167/75; TEMP 96.1
--- NOTE | 2017-04-12 12:53 | PRG ---
DATE OF SERVICE: 04/12/2017 SUBJECTIVE: This morning, awake, alert, responsive, status post pacemaker. X- ray looks stable. No acute infiltrates. OBJECTIVE: VITAL SIGNS: Blood pressure 182/80, pulse 80, respirations 16, and temperature 98. CHEST: Decreased breath sounds, no wheezing. CARDIAC: Normal S1 and S2. ABDOMEN: No masses. LABORATORY DATA: White count 9,000, hemoglobin and hematocrit 11 and 34, platelet count is normal.ceatinine 1.2. IMPRESSION: 1. Status post pacemaker. 2. Mild azotemia. From a pulmonary standpoint of view, he is stable now and disposition as per Cardiology. Home at any time. QUINTIN
--- NOTE | 2017-04-12 23:10 | DIS ---
DATE OF ADMISSION: 04/09/2017 DATE OF DISCHARGE: 04/12/2017 CONSULTS: Cardiology, Pulmonology. PROCEDURES: Pacemaker placement. DISCHARGE DIAGNOSES: 1. Sinus bradycardia, status post pacemaker placement. 2. Hypomagnesemia. 3. Hypokalemia. 4. Hypertension. 5. Acute sinusitis. HOSPITAL COURSE: This is a 76-year-old male who was brought to the hospital with chest discomfort a nd feeling unwell and was found to have bradycardia. He had an evaluation by Pulmonology and Cardio logy and the decision was made to put a pacemaker. The patient had pacemaker placement without any complications. The patient was also found to have hypomagnesemia, so his hydrochlorothiazide was st opped and magnesium was replaced. His heart rate initially was staying low in the 30s, even dropped to 31 with symptoms. The patient tolerated the pacemaker placement well and was discharged home. DISPOSITION: To home. CONDITION ON DISCHARGE: Stable. DISCHARGE MEDICATIONS: Omeprazole 20 mg p.o. daily, multivitamins 1 p.o. daily, aspirin 81 mg daily , Cozaar 100 mg p.o. daily, Zithromax 250 mg p.o. daily for 2 more days. The patient was also found to have sinusitis symptoms and started on Z-Bandar. DISCHARGE FOLLOWUP: 1. Follow up with primary care physician in 1 week. The patient's hydrochlorothiazide was held, so his blood pressure needs to be monitored and medicine needs to be adjusted. He can continue on Coz aar 100 mg p.o. daily. The family is aware. 2. Follow up with Cardiology in 3-4 weeks, Dr. Le. 3. Follow up with Cardiology nurse for pacemaker dressing change and wound inspection. Please note that I did spend more than 35 minutes coordinating the discharge care of this patient.
[2017-04-13] MEDS ORDERED: Losartan Potassium 25 MG TAB PO SCH (09:00)
== END 2017-04-12 12:42 | disposition home or self-care (01) | DRG 243 ==
LOC: ERS 18:31 → CCU 04-09 01:00 → 2NO 04-11 22:22
PROVIDERS: ADMIT Internal Medicine; ATTEND Internal Medicine
PROC: 0JH606Z Insertion of Pacemaker, Dual Chamber into Chest Subcutaneous Tissue and Fascia, Open Approach (ICD-10-PCS; principal; 2017-04-11)
PROC: 02H63JZ Insertion of Pacemaker Lead into Right Atrium, Percutaneous Approach (ICD-10-PCS; 2017-04-11)
PROC: 02HK3JZ Insertion of Pacemaker Lead into Right Ventricle, Percutaneous Approach (ICD-10-PCS; 2017-04-11)
DX: I44.2 Atrioventricular block, complete (principal); N17.9 Acute kidney failure, unspecified; E83.42 Hypomagnesemia; E83.51 Hypocalcemia; Z79.82 Long term (current) use of aspirin; R33.9 Retention of urine, unspecified; R00.1 Bradycardia, unspecified; J01.90 Acute sinusitis, unspecified; Z23 Encounter for immunization; I12.9 Hypertensive chronic kidney disease with stage 1 through stage 4 chronic kidney disease, or unspecified chronic kidney disease; N18.2 Chronic kidney disease, stage 2 (mild)
CPT/HCPCS: 33208; 36415; 71010; 71275; 80048; 80053; 80162; 82248; 82306; 82553; 82607; 82746; 83690; 83735; 83880; 83970; 84484; 85007; 85025; 85027; 85610; 85730; 90471; 90682; 93005; 93010; 93306; 94640; 94799; 96361; 96365; 96366; 96375; 99292; A4216; C1785; C1898; G0008; J0461; J0690; J1200; J1265; J1580; J2001; J2405; J2930; J3411; J3475; J7050; J7620; Q2036; S0028

== ENCOUNTER 2017-11-29 10:06 | Inpatient (IN) | payer MEDICARE ==
[2017-11-29 10:28] LABS: #Basophils 0.1 thou/uL (0.0-0.2); #Eosinphils 0.1 thou/uL (0.0-0.7); #Lymphocytes 1.1 thou/uL (1.20-3.40); #Monocytes 1.3 thou/uL (0.11-0.59); #Neutrophils 7.3 thou/uL (1.40-6.50); %Basophils 0.6 % (0.0-1.0); %Eosinophils 0.9 % (0.0-10.0); %Lymphocytes 11.5 % (21.0-51.0); %Monocytes 12.8 % (0.0-10.0); %Neutrophils 74.2 % (42.0-75.0); Hemoglobin 14.8 g/dL (14.0-18.0); Mean Corpuscular HGB CONC 35.3 g/dL (32.0-36.0); Mean Corpuscular Hemoglobin 34.7 pg (27.0-31.0); Mean Corpuscular Volume 98.3 fl (80.0-94.0); Mean Platelet Volume 6.9 fL (7.4-10.4); Platelet Count 233 thou/uL (130-400); Red Blood Cell (RBC) Count 4.26 mill/uL (4.70-6.10); White Blood Cell (WBC) Count 9.8 thou/uL (4.8-10.8)
[2017-11-29 10:37] LABS: INR-International Normal Ratio 1.1; PTT 23.4 SEC (22.9-36.1); Prothrombin Time 13.8 SEC (12.0-14.7)
[2017-11-29 10:48] LABS: ALT (SGPT) 25 U/L (8-55); AST (SGOT) 16 U/L (5-34); Albumin 4.2 g/dL (3.4-4.8); Alkaline Phosphatase 66 U/L (40-150); Anion Gap 21 mmol/L (10-20); BUN (Urea Nitrogen) 32 mg/dL (8.4-25.7); Bilirubin, Total 0.7 mg/dL (0.2-1.2); CK (CPK) 172 U/L (30-200); Calc. Creatinine Clearance 0 mL/min (70-130); Calcium 7.8 mg/dL (7.8-10.44); Carbon Dioxide 21 mmol/L (23-31); Chloride 103 mmol/L (98-107); Estimated GFR-MDRD 21; Globulin 3.3 g/dL (2.4-3.5); Glucose 134 mg/dL (83-110); Potassium 3.6 mmol/L (3.5-5.1); Protein, Total 7.5 g/dL (5.8-8.1); Sodium 141 mmol/L (136-145)
[2017-11-29] MEDS ORDERED: Ondansetron ODT 4 MG TAB ONE (10:51)
[2017-11-29 10:53] LABS: CKMB 2.7 ng/mL (0-6.6); Troponin I Less than 0.010 ng/mL (< 0.028)
--- NOTE | 2017-11-29 11:06 | CT ---
CT BRAIN WITHOUT CONTRAST: HISTORY: Stroke alert. Facial droop. Nausea and vomiting. COMPARISON: CT brain from 06/29/2013. FINDINGS: No acute territorial infarct or hemorrhage. No midline shift or mass effect. Ventricular size and e xtraaxial CSF spaces are normal. The paranasal sinuses and mastoids are clear. The globes are intact. IMPRESSION: No acute intracranial abnormality. POS: [facility]
[2017-11-29 12:17] LABS: Bilirubin Negative (Negative); Blood, Urine Negative (Negative); Clarity CLEAR (Clear); Glucose, Urine (Dipstick) Negative (Negative); Leukocyte Negative (Negative); Nitrite Negative (Negative); Protein, Urine (Dipstick) Negative (Neg-Trace); Specific Gravity, Urine 1.011 (1.002-1.036); Urobilinogen 0.2 mg/dL (0.2-1.0); pH, Urine 5.5 (5.0-9.0)
--- NOTE | 2017-11-29 14:05 | HP ---
PRIMARY CARE PHYSICIAN: Juanito Chawla M.D. REASON FOR ADMISSION: Nausea, vomiting, dehydration, acute kidney failure. HISTORY OF PRESENT ILLNESS: A 77-year-old male who has underlying history of hypertension and gastro esophageal reflux disease who presented to emergency room with complaint of generalized weakness. Brian avila initially came to emergency room with stroke alert. ER physician received him as confusion and there was concern of facial droop and that is why CT brain was done which was negative for any acute intracranial process. When he came to emergency room, patient not appear to be confused and he was not having any facial droop and there was no concern of stroke, but patient reported that for the las t one week he is feeling weak. He has no nausea or vomiting. He was not eating or drinking signific antly for the last 1 week. Last night, he had several times vomiting without any blood and now only he has dry heaves. For last few days, he was watching TV and watching food or any kind of smell of f ood was also making him nauseated and he was not eating enough and drinking enough. He was feeling m ore dizzy and lightheaded. He was feeling blackout sensation when he was standing. He was feeling e xtremely weak and that is why he went to see a primary care physician who advised him to go to emerge ncy room for evaluation. The patient also saw primary care physician and at that time blood test was done and patient was given potassium chloride. The patient took 3 days of potassium chloride on emp ty stomach. The patient denies any unusual food ingestion. He denies any sick exposure. He was fee ling shaky, but he was not having any fever or chills. He denies any UTI symptoms. He denies any me dawna or hematochezia, but he was feeling constipated. Normally, he takes hydrocodone for his chronic back pain once or twice a week, but for last week he was taking almost twice daily. His last bowel movement was 2 days ago. He denies any abdominal distention. He denies any crampy abdominal pain. Patient denies taking any new medication. He denies taking NSAID. He denies any epigastric pain. H e denies any headache or focal motor or sensory symptoms. He denies any chest pain, palpitation. He denies any dyspnea, orthopnea, PND. He denies any lower extremity edema. REVIEW OF SYSTEMS: The following complete review of systems was negative, unless otherwise mentioned in the HPI or below: Constitutional: Weight loss or gain, ability to conduct usual activities. Skin: Rash, itching. Eyes: Double vision, pain. ENT/Mouth: Nose bleeding, neck stiffness, pain, tenderness. Cardiovascular: Palpitations, dyspnea on exertion, orthopnea. Respiratory: Shortness of breath, wheezing, cough, hemoptysis, fever or night sweats. Gastrointestinal: Poor appetite, abdominal pain, heartburn, nausea, vomiting, constipation, or diarr hea. Genitourinary: Urgency, frequency, dysuria, nocturia. Musculoskeletal: Pain, swelling. Neurologic/Psychiatric: Anxiety, depression. Allergy/Immunologic: Skin rash, bleeding tendency. Please see my HPI for pertinent positive and negative. All other review of systems reviewed and nega tive except as mentioned in the HPI. ALLERGIES: IODINATED CONTRAST. CURRENT HOME MEDICATIONS: Losartan 100 mg p.o. daily, amlodipine 10 mg p.o. daily, hydrochlorothiazi de 12.5 mg twice daily, omeprazole 20 mg p.o. daily, fish oil 1000 mg p.o. daily, Vision multivitamin 1 tablet daily, aspirin 81 mg p.o. daily, hydrocodone 10 mg daily. PAST MEDICAL HISTORY: Chronic low back pain, hypertension, benign enlargement of prostate, gastroeso phageal reflux disease, history of third degree AV block, symptomatic, required pacemaker. PAST SURGICAL HISTORY: Cholecystectomy, bilateral hip surgery, pacemaker. PSYCHIATRIC HISTORY: Reviewed and negative. SOCIAL HISTORY: Patient is and lives in [place] with his . No history of tobacco, alc ohol or illicit drug abuse. FAMILY HISTORY: No strong family history of premature coronary artery disease, stroke or cancer. No family history of renal failure. EMERGENCY ROOM COURSE: Patient was given Zofran 4 mg and IV fluid 500 mL. PHYSICAL EXAMINATION: VITAL SIGNS: On arrival, blood pressure 161/81, pulse 90, respiratory rate 18, temperature 98.6, sat uration 98% on room air, weight 72.1 kilograms. GENERAL: Patient is currently alert, awake, no obvious acute distress. Appears nauseated. HEAD: Normocephalic, atraumatic. EYES: Pupils round, reactive to light. Extraocular muscle intact. ENT: Somewhat dry appearing mucous membranes, no oral lesion, no pharyngeal erythema, no exudate. NECK: Supple, no JVD, no thyromegaly, no carotid bruit, no jugular venous distention. LUNGS: Clear to auscultation without any rhonchi or rales. CARDIAC: S1 and S2 appears regular. No murmur, no gallop, no rub. ABDOMEN: Patient does have lower quadrant discomfort on both sides. No peritoneal signs, no guardin g, no rigidity, no rebound. Bowel sounds present. BACK: No point tenderness, no CVA tenderness. EXTREMITIES: Upper extremity passive movement of all joints are normal. Lower extremities: No jude a. Good peripheral pulsation. SKIN: No skin rash. HEMATOLOGICAL SYSTEM: No lymphadenopathy. PSYCHIATRIC: Normal affect. NEUROLOGIC: The patient is alert, oriented x3. Cranial nerves II-XII intact. Speech, normal. Evelina r 5/5. Sensation bilaterally symmetrical. Reflexes symmetrical. Plantar bilateral flexor. No cere bellar sign. IMAGING DATA AND SIGNIFICANT LABORATORY DATA: 1. EKG showing pacemaker rhythm. 2. CT brain based on my review, no acute intracranial process. I am going to order CT stone protoco l and chest x-ray. 3. CBC: WBC 9.8, hemoglobin 14.8, platelet 233. INR 1.1. 4. BMP: Sodium 141, potassium 3.6, chloride 103, carbon dioxide 21, anion gap 21, BUN 32, creatinin e 2.90, glucose 134, calcium is 7.8. 5. LFT: AST 16, ALT 25, alkaline phosphatase 66, albumin 4.2, CK 172, CK-MB 2.7. Troponin I less t baker 0.010. Urinalysis normal. ASSESSMENT AND PLAN/IMPRESSION: 1. Acute kidney failure, most likely prerenal etiology secondary to nausea, vomiting, and poor p.o. intake. Patient will be given IV fluid normal saline 800 mL per hour. We will monitor renal functio n and will avoid nephrotoxin agent. For workup, we will check urine sodium, creatinine, protein as w ell as we will order CT stone protocol to rule out any obstructive etiology. Because of acute kidney failure, we will hold on losartan and hydrochlorothiazide. 2. Elevated anion gap metabolic acidosis likely due to renal failure. The patient will be given IV fluid and we will repeat BMP tomorrow. 3. Nausea and vomiting, etiology uncertain, but we are suspecting related with his renal failure. W e have ruled out urinary tract infection. Patient does not have any epigastric pain or any Ferro si gn. We will treat symptomatically with Protonix 40 mg IV daily and Zofran on a p.r.n. basis. If orquidea mckenzie does have persistent nausea and vomiting, then we will consider GI evaluation with upper endosco py if needed. He has already cholecystectomy and his LFTs are normal. We are also suspecting that juice san might have underlying constipation from hydrocodone use and that is why we are doing CT stone abdomen without contrast. 4. History of third degree AV block with pacemaker. 5. Hypertension. Currently, we will only continue amlodipine 10 mg p.o. daily. We will hold on los gabrielle and hydrochlorothiazide because of renal failure. 6. Gastroesophageal reflux disease. The patient is already kept on Protonix 40 mg IV daily. 7. Deep venous thrombosis prophylaxis, heparin 5000 units subcu twice daily. 8. Gastrointestinal prophylaxis, Protonix 40 mg IV daily. 9. Code status: The patient is FULL CODE. The patient's is surrogate decision maker. Disposition plan based on clinical course. We are expecting patient's stay in hospital more than 2 m idnights. Plan of care discussed with the patient and at bedside in the emergency room.
[2017-11-29] MEDS ORDERED: Labetalol HCl 100 MG/20 ML VIAL SLOW IVP PRN (14:14)
[2017-11-29] MEDS ORDERED: Diabetic Tussin 200 MG/10 ML UDCUP PO PRN (14:14)
[2017-11-29] MEDS ORDERED: Sodium Chloride 0.65% Nasal 44 ML BOT EA NARE PRN (14:14)
[2017-11-29] MEDS ORDERED: Acetaminophen 325 MG TAB PO PRN (14:14)
[2017-11-29] MEDS ORDERED: Zolpidem Tartrate 5 MG TAB PO PRN (14:14)
[2017-11-29] MEDS ORDERED: Eucerin (Mineral Oil/Petrolatum,White) 30 gm Jar TOP PRN (14:14)
[2017-11-29] MEDS ORDERED: Bisacodyl 10 MG SUPP PR PRN (14:14)
[2017-11-29] MEDS ORDERED: Artificial Tear Sol 15 ML BOT EA EYE PRN (14:14)
[2017-11-29] MEDS ORDERED: Ondansetron ODT 4 MG TAB PO PRN (14:14)
[2017-11-29] MEDS ORDERED: hydrALAZINE 20 MG/ML VIAL SLOW IVP PRN (14:14)
[2017-11-29] MEDS ORDERED: Senokot 8.6 MG TAB PO PRN (14:14)
[2017-11-29] MEDS ORDERED: Loperamide HCl 2 MG CAP PO PRN (14:14)
[2017-11-29] MEDS ORDERED: Loratadine 10 MG TAB PO PRN (14:14)
[2017-11-29] MEDS ORDERED: Mag-Al 1200 mg/1200 mg/30 ML UDCUP PO PRN (14:14)
[2017-11-29] MEDS ORDERED: Chloraseptic Spray 180 ml Bottle PO PRN (14:14)
[2017-11-29 14:33] VITALS: BMI 27.1
[2017-11-29] MEDS: Ondansetron HCl/PF 4 MG/2 ML Vial IVP PRN ×2 (14:41→22:59)
[2017-11-29] MEDS: Sodium Chloride 0.9% 1,000 ML IV SCH (14:41)
[2017-11-29] MEDS ORDERED: Prevnar 13-Val Conj/PF 0.5 ML SYRINGE IM ONE (14:45)
--- NOTE | 2017-11-29 15:40 | CT ---
CT ABDOMEN AND PELVIS WITHOUT CONTRAST STONE PROTOCOL: Date: 11/29/17 HISTORY: Abdominal pain. COMPARISON: CT abdomen and pelvis without contrast stone protocol from 2017. FINDINGS: Mild atelectatic changes in the lung bases. No pericardial effusion. There is no nephroureterolithiasis or hydroureteronephrosis. No secondary evidence of recently passed stone. Large volume stool throughout the sigmoid colon. No dilated loops of large or small bowel. Mild perin ephric stranding bilaterally, likely sequelae of chronic medical renal disease. Prior cholecystectomy . Noncontrast evaluation of the liver and adrenal glands are unremarkable. Mild diverticular disease wi thout active inflammation. The appendix is felt to be visualized and appears normal. No aneurysmal dilatation of the aorta with moderate atherosclerotic plaque. Incidental note is made of a splenule. Bilateral hip arthroplasties are in place. Moderate left-sided hip heterotopic ossification. IMPRESSION: 1. No nephroureterolithiasis or hydroureteronephrosis. No secondary evidence of recently passed ston e. 2. Mild diverticular disease without active inflammation. 3. Normal appendix. 4. No acute inflammatory process in the abdomen or pelvis. POS: [facility]
[2017-11-29] MEDS ORDERED: Promethazine HCl 12.5 MG in Sodium Chloride 0.9% 50 ML IVPB PRN (16:18)
[2017-11-29] MEDS: Heparin 5,000 UNITS/ML VIAL SC SCH (23:04)
[2017-11-29 23:25] LABS: Bilirubin Negative (Negative); Blood, Urine Negative (Negative); Clarity CLEAR (Clear); Glucose, Urine (Dipstick) Negative (Negative); Leukocyte Negative (Negative); Nitrite Negative (Negative); Protein, Urine (Dipstick) Negative (Neg-Trace); Specific Gravity, Urine 1.011 (1.002-1.036); Urobilinogen 0.2 mg/dL (0.2-1.0); pH, Urine 5.5 (5.0-9.0)
[2017-11-29 23:27] LABS: Bacteria/HPF None Seen HPF (None Seen); Hyaline Casts/LPF 4-6 HYALINE CAST LPF (0-3 Hyaline); Pathc Cast-AUWi Flag 1.01 (0-2.49); RBC/HPF 0-3 HPF (0-3); Squamous Epithelial 0-3 HPF (0-3); WBC/HPF 0-3 HPF (0-3)
[2017-11-29 23:39] LABS: Creatinine, Urine 110.34 mg/dL (63-166)
[2017-11-30] MEDS: Sodium Chloride 0.9% 1,000 ML IV SCH ×3 (01:19→18:17)
[2017-11-30 05:45] LABS: ALT (SGPT) 18 U/L (8-55); AST (SGOT) 18 U/L (5-34); Albumin 3.5 g/dL (3.4-4.8); Alkaline Phosphatase 51 U/L (40-150); Anion Gap 16 mmol/L (10-20); BUN (Urea Nitrogen) 33 mg/dL (8.4-25.7); Bilirubin, Total 0.6 mg/dL (0.2-1.2); Calc. Creatinine Clearance 28 mL/min (70-130); Carbon Dioxide 24 mmol/L (23-31); Chloride 107 mmol/L (98-107); Estimated GFR-MDRD 27; Globulin 2.5 g/dL (2.4-3.5); Glucose 107 mg/dL (83-110); Potassium 3.6 mmol/L (3.5-5.1); Sodium 143 mmol/L (136-145)
[2017-11-30 05:46] LABS: #Eosinphils 0.1 thou/uL (0.0-0.7); #Lymphocytes 1.2 thou/uL (1.20-3.40); #Monocytes 0.8 thou/uL (0.11-0.59); #Neutrophils 4.6 thou/uL (1.40-6.50); %Basophils 0.5 % (0.0-1.0); %Eosinophils 1.1 % (0.0-10.0); %Lymphocytes 17.7 % (21.0-51.0); %Monocytes 11.6 % (0.0-10.0); %Neutrophils 69.1 % (42.0-75.0); Hemoglobin 11.7 g/dL (14.0-18.0); Mean Corpuscular HGB CONC 36.3 g/dL (32.0-36.0); Mean Corpuscular Hemoglobin 35.3 pg (27.0-31.0); Mean Corpuscular Volume 97.4 fl (80.0-94.0); Mean Platelet Volume 6.9 fL (7.4-10.4); Platelet Count 204 thou/uL (130-400); RBC Distribution Width 11.1 % (11.5-14.5); Red Blood Cell (RBC) Count 3.31 mill/uL (4.70-6.10); White Blood Cell (WBC) Count 6.6 thou/uL (4.8-10.8)
[2017-11-30] MEDS ORDERED: Fleet Enema 133 ML BOT PR SCH (07:30)
[2017-11-30] MEDS: Amlodipine 10 MG TAB PO SCH (08:41)
[2017-11-30] MEDS: Aspirin 81 mg Enteric Coated Tablet PO SCH (08:42)
[2017-11-30] MEDS: Fish Oil 1,000 MG CAP PO SCH (08:42)
[2017-11-30] MEDS: Tamsulosin HCl 0.4 MG CAP PO SCH (08:42)
[2017-11-30] MEDS: Heparin 5,000 UNITS/ML VIAL SC SCH ×2 (08:43→22:02)
[2017-11-30] MEDS: Pantoprazole 40 MG VIAL IVP SCH (08:43)
[2017-11-30] MEDS ORDERED: Meclizine HCl 12.5 MG TAB PO PRN (09:24)
[2017-11-30] MEDS ORDERED: methylPREDNISolone Sod Succ/PF 125 MG/2 ML VIAL IVP SCH (09:30)
--- NOTE | 2017-11-30 10:48 | PDOC.PN ---
- Subjective Encounter Start Date: 11/30/17 Encounter Start Time: 07:30 -: old records requested/rev pt is feeling unsteady when he walks, no nausea, no vomiting, renal function better he has sinus symptoms - Objective Resuscitation Status: Resuscitation Status FULL:Full Resuscitation MAR Reviewed: Yes Vital Signs & Weight: Vital Signs (12 hours) Temp Pulse Resp BP BP Pulse Ox 11/30/17 08:41 92 138/82 11/30/17 08:00 98.7 F 92 16 96 11/30/17 07:39 98.7 F 92 16 138/82 96 11/30/17 05:50 98.3 F 83 18 137/71 95 11/30/17 00:00 98.9 F 90 18 129/76 96 Result Diagrams: 11/30/17 04:37 11/30/17 04:37 Radiology Reviewed by me: Yes (CT abdomen) Phys Exam - Physical Examination Constitutional: NAD HEENT: PERRLA, moist MMs, sclera anicteric Neck: no JVD, supple Respiratory: no wheezing, no rales, no rhonchi Cardiovascular: RRR, no significant murmur, no rub Gastrointestinal: soft, no distention, positive bowel sounds lower abdomen discomfort Musculoskeletal: no edema, pulses present Neurological: non-focal, normal sensation, moves all 4 limbs no cerebellar sign but unsteady, has dizziness Lymphatic: no nodes Psychiatric: normal affect, A&O x 3 Skin: no rash, normal turgor Dx/Plan (1) Acute kidney failure Status: Acute (2) Acute sinusitis, unspecified Code(s): J01.90 - ACUTE SINUSITIS, UNSPECIFIED Status: Acute Qualifiers: Recurrence: recurrent (3) Dizziness Code(s): R42 - DIZZINESS AND GIDDINESS Status: Acute (4) Nausea & vomiting Code(s): R11.2 - NAUSEA WITH VOMITING, UNSPECIFIED Status: Acute (5) Dehydration Code(s): E86.0 - DEHYDRATION Status: Acute (6) Constipation Code(s): K59.00 - CONSTIPATION, UNSPECIFIED Status: Acute (7) H/O cardiac pacemaker Code(s): Z95.0 - PRESENCE OF CARDIAC PACEMAKER Status: Chronic (8) GERD (gastroesophageal reflux disease) Code(s): K21.9 - GASTRO-ESOPHAGEAL REFLUX DISEASE WITHOUT ESOPHAGITIS Status: Chronic (9) BPH (benign prostatic hyperplasia) Code(s): N40.0 - BENIGN PROSTATIC HYPERPLASIA WITHOUT LOWER URINRY TRACT SYMP Status: Chronic - Plan cont current plan of care, plan discussed w/ family, PT/OT * will give fleet enema for constipation * will add flonase nasal spray and give one dose of solumedrol for sinusitis * will get MRI to rule out central etiology for his dizziness * suspecting labyrinthitis, so will add antivert as needed * will increase IVF * home medication reconciled * discussed with family * will consult PT * medication reviewed as below * symptomatic treatment. Review of Systems - Review of Systems Eyes: negative: Pain, Vision Change, Conjunctivae Inflammation, Eyelid Inflammation, Redness, Other ENT: negative: Ear Pain, Ear Discharge, Nose Pain, Nose Discharge, Nose Congestion, Mouth Pain, Mouth Swelling, Throat Pain, Throat Swelling, Other Respiratory: negative: Cough, Dry, Shortness of Breath, Hemoptysis, SOB with Excertion, Pleuritic Pain, Sputum, Wheezing Cardiovascular: negative: chest pain, palpitations, orthopnea, paroxysmal nocturnal dyspnea, edema, light headedness, other Gastrointestinal: Nausea, Constipation. negative: Vomiting, Abdominal Pain, Diarrhea, Melena, Hematochezia, Other Genitourinary: negative: Dysuria, Frequency, Incontinence, Hematuria, Retention , Other Musculoskeletal: negative: Neck Pain, Shoulder Pain, Arm Pain, Back Pain, Hand Pain, Leg Pain, Foot Pain, Other Skin: negative: Rash, Lesions, Deep, Bruising, Other Neurological: Incoordination. negative: Weakness, Numbness, Change in Speech, Confusion, Seizures, Other - Medications/Allergies Allergies/Adverse Reactions: Allergies Allergy/AdvReac Type Severity Reaction Status Date / Time Iodinated Contrast- Oral and Allergy Rash Verified 04/09/17 03:13 IV Dye [Iodinated Contrast Media - Oral and] Medications: Current Medications Acetaminophen (Tylenol) 650 mg PO Q4H PRN PRN Reason: Headache/Fever or Pain Hydrocodone Bitart/Acetaminophen (Orange 5/325) 1 tab PO Q4H PRN PRN Reason: Moderate Pain (4-6) Al Hydroxide/Mg Hydroxide (Maalox) 30 ml PO Q6H PRN PRN Reason: Heartburn or Indigestion Amlodipine Besylate (Norvasc) 10 mg PO DAILY CHRISTIANO Last Admin: 11/30/17 08:41 Dose: 10 mg Artificial Tears (Tears Renewed 15ml Bottle) 0 drop EA EYE PRN PRN PRN Reason: Dry Eyes Aspirin (Ecotrin) 81 mg PO QAM [facility] Last Admin: 11/30/17 08:42 Dose: 81 mg Bisacodyl (Dulcolax) 10 mg WA Q24H PRN PRN Reason: Constipation Fish Oil (Fish Oil) [facility] [place] Last Admin: 11/30/17 08:42 Dose: 1,000 mg Fluticasone Propionate (Flonase Nasal [place]) 0 gm NASAL DAILY [facility] Guaifenesin (Robitussin Sf) 200 mg PO Q4H PRN PRN Reason: Cough Heparin Sodium (Porcine) (Heparin) 5,000 units SC BID [facility] Last Admin: 11/30/17 08:43 Dose: 5,000 units Hydralazine HCl (Apresoline) 10 mg SLOW IVP Q4H PRN PRN Reason: Systolic BP > 180 Promethazine HCl 12.5 mg/ (Sodium Chloride) 50.5 mls @ 151.5 mls/hr IVPB Q6H PRN PRN Reason: Nausea Last Admin: 11/29/17 17:06 Dose: 50.5 mls Sodium Chloride (Normal Saline 0.9%) 1,000 mls @ 125 mls/hr IV .Q8H [facility] Last Admin: 11/30/17 10:34 Dose: 1,000 mls Labetalol HCl (Normodyne) 20 mg SLOW IVP Q4H PRN PRN Reason: Systolic BP > 180 Loperamide HCl (Imodium) 2 mg PO PRN PRN PRN Reason: Diarrhea/Loose Stools Loratadine (Claritin) 10 mg PO DAILYPRN PRN PRN Reason: Sinus Symptoms Magnesium Hydroxide (Milk Of Magnesium) 30 ml PO DAILYPRN PRN PRN Reason: Constipation Meclizine HCl (Antivert) 12.5 mg PO TIDPRN PRN PRN Reason: Dizziness Methylprednisolone Sodium Succinate (Solu-Medrol) 80 mg IVP NOW [facility] Stop: 11/30/17 12:00 Last Admin: 11/30/17 10:37 Dose: 80 mg Mineral Oil/White Petrolatum (Eucerin Cream) 0 gm TOP BIDPRN PRN PRN Reason: Dry Skin Ondansetron HCl (Zofran Odt) 4 mg PO Q6H PRN PRN Reason: Nausea/Vomiting Ondansetron HCl (Zofran) 4 mg IVP Q6H PRN PRN Reason: Nausea/Vomiting Last Admin: 11/29/17 22:59 Dose: 4 mg Pantoprazole Sodium (Protonix) 40 mg IVP DAILY [facility] Last Admin: 11/30/17 08:43 Dose: 40 mg Phenol (Chloraseptic [place] 180 Ml Bot) 0 ml PO PRN PRN PRN Reason: Sore Throat Senna (Senokot) 2 tab PO HSPRN PRN PRN Reason: Constipation Sodium Biphosphate/Sodium Phosphate (Fleet Enema) 133 ml WA ONE [facility] Stop: 11/30/17 21:00 Sodium Chloride ([place] Nasal [place] 0.65%) 0 ml EA NARE QIDPRN PRN PRN Reason: Nasal Congestion Sodium Chloride (Flush - Normal Saline) 10 ml IVF Q12HR [facility] Last Admin: 11/30/17 08:47 Dose: Not Given Sodium Chloride (Flush - Normal Saline) 10 ml IVF PRN PRN PRN Reason: Saline Flush Tamsulosin HCl (Flomax) 0.4 mg PO DAILY [facility] Last Admin: 11/30/17 08:42 Dose: 0.4 mg Zolpidem Tartrate (Ambien) 5 mg PO HSPRN PRN PRN Reason: Insomnia
[2017-11-30] MEDS: Milk Of Magnesia 30 ML UDCUP PO PRN (22:01)
[2017-11-30] MEDS: Preparation H Ointment 28 GM TUBE TOP SCH (22:02)
[2017-12-01] MEDS: Sodium Chloride 0.9% 1,000 ML IV SCH ×4 (01:37→22:07)
[2017-12-01 05:30] LABS: Anion Gap 13 mmol/L (10-20); BUN (Urea Nitrogen) 29 mg/dL (8.4-25.7); Calc. Creatinine Clearance 46 mL/min (70-130); Calcium 6.4 mg/dL (7.8-10.44); Carbon Dioxide 22 mmol/L (23-31); Chloride 112 mmol/L (98-107); Estimated GFR-MDRD 48; Glucose 132 mg/dL (83-110); Potassium 3.4 mmol/L (3.5-5.1); Sodium 144 mmol/L (136-145)
[2017-12-01] MEDS ORDERED: Lorazepam 2 MG/ML VIAL ONE (08:00)
[2017-12-01 08:43] LABS: CKMB 3.1 ng/mL (0-6.6); Troponin I Less than 0.010 ng/mL (< 0.028)
[2017-12-01 08:44] LABS: Magnesium 0.8 mg/dL (1.6-2.6)
[2017-12-01] MEDS ORDERED: Magnesium Sulfate 4 GM in Sodium Chloride 0.9% 250 ML 250 ML IVPB SCH (08:45)
[2017-12-01] MEDS ORDERED: Potassium Chloride 20 MEQ in Premix Bag 1 BAG IVPB SCH ×2 (08:45→09:00)
--- NOTE | 2017-12-01 09:05 | CT ---
HEAD CT: DATE: 12/01/17. COMPARISON: 11/29/17. HISTORY: New onset of seizures, stroke protocol. TECHNIQUE: Serial axial CT imaging at 5 mm intervals from vertex through the skull base without contrast. FINDINGS: Imaged paranasal sinuses and mastoid air cells are well aerated. There is no displaced calvarial fra cture, intracranial hemorrhage, midline shift or mass effect. Mild diffuse cerebral volume loss. No significant interval change. IMPRESSION: Stable head CT - no evidence for intracranial hemorrhage. Results were called to Dr. Aguirre at 8:24 a.m. 12/01/17. CODE CR POS: [facility]
--- NOTE | 2017-12-01 10:16 | PDOC.PN ---
- Subjective Encounter Start Date: 12/01/17 Encounter Start Time: 08:50 this morning pt had code green, he had generalized tonic clonic seizure, witnessed by son, he was then in post ictal phase, - Objective Resuscitation Status: Resuscitation Status FULL:Full Resuscitation MAR Reviewed: Yes Vital Signs & Weight: Vital Signs (12 hours) Temp Temp Pulse Pulse Pulse Pulse Pulse 12/01/17 07:55 98.2 F 120 H 123 H 115 H 114 H 12/01/17 07:43 98.2 F 91 12/01/17 07:35 98.2 F 91 12/01/17 05:55 98.4 F 80 12/01/17 00:00 98.3 F 80 Resp BP BP BP BP BP Pulse Ox 12/01/17 07:55 136/71 122/58 L 117/61 12/01/17 07:43 20 136/71 97 12/01/17 07:35 20 12/01/17 05:55 18 110/67 96 12/01/17 00:00 18 125/73 98 Pulse Ox Pulse Ox Pulse Ox Pulse Ox 12/01/17 07:55 97 98 97 96 12/01/17 07:43 12/01/17 07:35 12/01/17 05:55 12/01/17 00:00 I&O: 11/30/17 12/01/17 12/02/17 06:59 06:59 06:59 Intake Total 3949 Output Total 1000 Balance 2949 Result Diagrams: 11/30/17 04:37 12/01/17 04:47 Additional Labs: Accuchecks 12/01/17 12/01/17 08:05 08:00 POC Glucose 180 H 125 H Radiology Reviewed by me: Yes (CT brain - normal) EKG Reviewed by me: Yes (Pacemaker ) Phys Exam - Physical Examination Constitutional: NAD HEENT: PERRLA, moist MMs, sclera anicteric Neck: no nodes, no JVD, supple, full ROM Respiratory: no wheezing, no rales, no rhonchi Cardiovascular: RRR, no significant murmur, no rub Gastrointestinal: soft, non-tender, no distention, positive bowel sounds Musculoskeletal: no edema, pulses present Neurological: moves all 4 limbs Lymphatic: no nodes Psychiatric: normal affect Skin: no rash, normal turgor Dx/Plan (1) Encephalopathy acute Code(s): G93.40 - ENCEPHALOPATHY, UNSPECIFIED Status: Acute (2) Seizure Code(s): R56.9 - UNSPECIFIED CONVULSIONS Status: Acute (3) Acute kidney failure Status: Acute Comment: improving (4) Acute sinusitis, unspecified Code(s): J01.90 - ACUTE SINUSITIS, UNSPECIFIED Status: Acute Qualifiers: Recurrence: recurrent Comment: on flonase (5) Dizziness Code(s): R42 - DIZZINESS AND GIDDINESS Status: Acute (6) Nausea & vomiting Code(s): R11.2 - NAUSEA WITH VOMITING, UNSPECIFIED Status: Resolved (7) Dehydration Code(s): E86.0 - DEHYDRATION Status: Resolved (8) Constipation Code(s): K59.00 - CONSTIPATION, UNSPECIFIED Status: Resolved (9) H/O cardiac pacemaker Code(s): Z95.0 - PRESENCE OF CARDIAC PACEMAKER Status: Chronic (10) GERD (gastroesophageal reflux disease) Code(s): K21.9 - GASTRO-ESOPHAGEAL REFLUX DISEASE WITHOUT ESOPHAGITIS Status: Chronic (11) BPH (benign prostatic hyperplasia) Code(s): N40.0 - BENIGN PROSTATIC HYPERPLASIA WITHOUT LOWER URINRY TRACT SYMP Status: Chronic (12) Hypokalemia Code(s): E87.6 - HYPOKALEMIA Status: Acute (13) Hypomagnesemia Code(s): E83.42 - HYPOMAGNESEMIA Status: Acute - Plan cont current plan of care, plan discussed w/ family * EKG- pacemaker rhythem * CT brain- negative * today plan for MRI * will get pacemaker interrogation. * replace potassium and magnesium * EEG * consult neurology * transferred to [facility] for close neuro monitoring * will load with keppra * discussed with family bedside * will repeat labs tomorrow * medication reviewed as below * symptomatic treatment Review of Systems - Review of Systems Constitutional: negative: fever, chills, sweats, weakness, malaise, other Eyes: negative: Pain, Vision Change, Conjunctivae Inflammation, Eyelid Inflammation, Redness, Other ENT: negative: Ear Pain, Ear Discharge, Nose Pain, Nose Discharge, Nose Congestion, Mouth Pain, Mouth Swelling, Throat Pain, Throat Swelling, Other Respiratory: negative: Cough, Dry, Shortness of Breath, Hemoptysis, SOB with Excertion, Pleuritic Pain, Sputum, Wheezing Cardiovascular: negative: chest pain, palpitations, orthopnea, paroxysmal nocturnal dyspnea, edema, light headedness, other Gastrointestinal: negative: Nausea, Vomiting, Abdominal Pain, Diarrhea, Constipation, Melena, Hematochezia, Other Genitourinary: negative: Dysuria, Frequency, Incontinence, Hematuria, Retention , Other Musculoskeletal: negative: Neck Pain, Shoulder Pain, Arm Pain, Back Pain, Hand Pain, Leg Pain, Foot Pain, Other Skin: negative: Rash, Lesions, Deep, Bruising, Other Neurological: Confusion, Seizures. negative: Weakness, Numbness, Incoordination , Change in Speech, Other - Medications/Allergies Allergies/Adverse Reactions: Allergies Allergy/AdvReac Type Severity Reaction Status Date / Time Iodinated Contrast- Oral and Allergy Rash Verified 04/09/17 03:13 IV Dye [Iodinated Contrast Media - Oral and] Medications: Current Medications Acetaminophen (Tylenol) 650 mg PO Q4H PRN PRN Reason: Headache/Fever or Pain Hydrocodone Bitart/Acetaminophen ([place] 5/325) 1 tab PO Q4H PRN PRN Reason: Moderate Pain (4-6) Al Hydroxide/Mg Hydroxide (Maalox) 30 ml PO Q6H PRN PRN Reason: Heartburn or Indigestion Amlodipine Besylate (Norvasc) 10 mg PO DAILY [facility] Last Admin: 11/30/17 08:41 Dose: 10 mg Artificial Tears (Tears Renewed 15ml Bottle) 0 drop EA EYE PRN PRN PRN Reason: Dry Eyes Aspirin (Ecotrin) [facility] [place] Last Admin: 11/30/17 08:42 Dose: 81 mg Bisacodyl (Dulcolax) 10 mg AL Q24H PRN PRN Reason: Constipation Fish Oil (Fish Oil) 1,000 mg PO QAM [facility] Last Admin: 11/30/17 08:42 Dose: 1,000 mg Fluticasone Propionate (Flonase Nasal [place]) 0 gm NASAL DAILY [facility] Guaifenesin (Robitussin Sf) 200 mg PO Q4H PRN PRN Reason: Cough Heparin Sodium (Porcine) (Heparin) 5,000 units SC BID [facility] Last Admin: 11/30/17 22:02 Dose: 5,000 units Hydralazine HCl (Apresoline) 10 mg SLOW IVP Q4H PRN PRN Reason: Systolic BP > 180 Promethazine HCl 12.5 mg/ (Sodium Chloride) 50.5 mls @ 151.5 mls/hr IVPB Q6H PRN PRN Reason: Nausea Last Admin: 11/29/17 17:06 Dose: 50.5 mls Sodium Chloride (Normal Saline 0.9%) 1,000 mls @ 125 mls/hr IV .Q8H [facility] Last Admin: 12/01/17 01:37 Dose: Not Given Levetiracetam 1,000 mg/ Device 100 mls @ 200 mls/hr IVPB BID [facility] Magnesium Sulfate 4 gm/ Sodium (Chloride) 258 mls @ 86 mls/hr IVPB ONE [facility] Stop: 12/01/17 14:00 Potassium Chloride 20 meq/ (Device) 100 mls @ 100 mls/hr IVPB NOW [facility] Stop: 12/01/17 11:00 Labetalol HCl (Normodyne) 20 mg SLOW IVP Q4H PRN PRN Reason: Systolic BP > 180 Loperamide HCl (Imodium) 2 mg PO PRN PRN PRN Reason: Diarrhea/Loose Stools Loratadine (Claritin) 10 mg PO DAILYPRN PRN PRN Reason: Sinus Symptoms Last Admin: 11/30/17 11:43 Dose: 10 mg Magnesium Hydroxide (Milk Of Magnesium) 30 ml PO DAILYPRN PRN PRN Reason: Constipation Last Admin: 11/30/17 22:01 Dose: 30 ml Meclizine HCl (Antivert) 12.5 mg PO TIDPRN PRN PRN Reason: Dizziness Mineral Oil/White Petrolatum (Eucerin Cream) 0 gm TOP BIDPRN PRN PRN Reason: Dry Skin Ondansetron HCl (Zofran Odt) 4 mg PO Q6H PRN PRN Reason: Nausea/Vomiting Ondansetron HCl (Zofran) 4 mg IVP Q6H PRN PRN Reason: Nausea/Vomiting Last Admin: 11/29/17 22:59 Dose: 4 mg Pantoprazole Sodium (Protonix) 40 mg IVP DAILY [facility] Last Admin: 11/30/17 08:43 Dose: 40 mg Phenol (Chloraseptic [place] 180 Ml Bot) 0 ml PO PRN PRN PRN Reason: Sore Throat Phenyleph/Shark Oil/Min Oil/Petrol (Preparation H Ointment) 0 gm TOP BID [facility] Last Admin: 11/30/17 22:02 Dose: 1 gm Senna (Senokot) 2 tab PO HSPRN PRN PRN Reason: Constipation Sodium Chloride ([place] Nasal [place] 0.65%) 0 ml EA NARE QIDPRN PRN PRN Reason: Nasal Congestion Sodium Chloride (Flush - Normal Saline) 10 ml IVF Q12HR [facility] Last Admin: 11/30/17 22:03 Dose: Not Given Sodium Chloride (Flush - Normal Saline) 10 ml IVF PRN PRN PRN Reason: Saline Flush Tamsulosin HCl (Flomax) 0.4 mg PO DAILY [facility] Last Admin: 11/30/17 08:42 Dose: 0.4 mg Zolpidem Tartrate (Ambien) 5 mg PO HSPRN PRN PRN Reason: Insomnia
[2017-12-01] MEDS: Amlodipine 10 MG TAB PO SCH (10:29)
[2017-12-01] MEDS: Heparin 5,000 UNITS/ML VIAL SC SCH ×2 (10:41→20:17)
[2017-12-01] MEDS: Tamsulosin HCl 0.4 MG CAP PO SCH (10:41)
[2017-12-01] MEDS: Aspirin 81 mg Enteric Coated Tablet PO SCH (10:41)
[2017-12-01] MEDS: Fish Oil 1,000 MG CAP PO SCH (10:41)
[2017-12-01] MEDS: Pantoprazole 40 MG VIAL IVP SCH (10:42)
[2017-12-01] MEDS: Preparation H Ointment 28 GM TUBE TOP SCH ×2 (10:42→20:17)
[2017-12-01] MEDS: levETIRAcetam In NaCl (Iso-Os) 1,000 MG in Premix Bag 1 BAG IVPB SCH ×2 (10:42→20:16)
[2017-12-01] MEDS: Fluticasone Propionate Nasal Spray 16 gm Bottle NASAL SCH (10:42)
[2017-12-01] MEDS: Milk Of Magnesia 30 ML UDCUP PO PRN (11:18)
[2017-12-01] MEDS: HYDROcodone/Acetaminophen 5/325 mg Tablet PO PRN ×2 (11:18→22:32)
--- NOTE | 2017-12-01 14:11 | MRI ---
BRAIN MRI WITHOUT CONTRAST: DATE: 12/01/17. COMPARISON: None. HISTORY: New onset of seizures, recent stroke alert. TECHNIQUE: Multiplanar, multisequence MR imaging of the brain is provided without contrast. FINDINGS: The diffusion weighted imaging demonstrates no evidence for acute infarction. Coronal gradient echo imaging demonstrates blooming artifact within the globus pallidus bilaterally s uggesting calcification. Gradient echo imaging is otherwise unremarkable. Detailed assessment of the hippocampi is limited on the basis of motion artifact. The hippocampi luis carlos ear grossly unremarkable in size, structure, and signal intensity. Mild mucosal thickening of the bilateral ethmoid air cells and maxillary sinus noted on the right. A few opacified mastoid air cells are noted inferiorly on the left. Arterial flow voids at axial leve l of skull base appear unremarkable on T2 weighted imaging.. No midline shift, mass effect, or ventr icular enlargement. Regional bone marrow signal intensity appears grossly unremarkable. IMPRESSION: No evidence for acute infarction. POS: [facility]
--- NOTE | 2017-12-01 14:31 | EKG ---
Test Reason : CODE GREEN Blood Pressure : / mmHG Vent. Rate : 128 BPM Atrial Rate : 131 BPM P-R Int : 000 ms QRS Dur : 146 ms QT Int : 392 ms P-R-T Axes : 000 -61 091 degrees QTc Int : 572 ms Poor data quality, interpretation may be adversely affected Electronic ventricular pacemaker When compared with ECG of 29-NOV-2017 10:27, (Unconfirmed) Vent. rate has increased BY 40 BPM Confirmed by OUMOU GUZMAN ([id number]) on 12/01/2017 2:31:10 PM Referred By: MEAGAN Confirmed By:OUMOU GUZMAN
--- NOTE | 2017-12-01 19:41 | CON ---
DATE OF CONSULTATION: 12/01/2017 NEUROLOGY CONSULTATION CONSULTING PHYSICIAN: Hospitalist service. IMPRESSION: New onset seizure without evidence of a focal lesion on MRI. More than likely this is d ue to some metabolic stress. PLAN: 1. Continue Keppra 500 mg twice a day. 2. Office followup. HISTORY OF PRESENT ILLNESS: Mr. Giraldo is a 77-year-old man who presented to the emergency room on M onday with complaints of nausea and vomiting. He apparently had some type of bowel obstruction that resulted in this. He was noted to be hypomagnesemic and hypokalemic. There is a bit of renal insuff iciency present. He was being treated in-house when he had a witnessed seizure. Prior to this, his notes that she saw a strange brief episode lasting a few seconds where he had some shuttering ty pe seizure-like movement that only lasted about 2 or 3 seconds. He has no memory of any of the event s. He does not remember any type of aura and an MRI of the brain done, which was normal. Lab work a t this point looks good. He is scheduled to see Dr. Le for echocardiogram and cardiac catheteriz ation in the near future. PAST MEDICAL HISTORY: As per chart. ALLERGIES: IODINATED CONTRAST. SOCIAL HISTORY: Unremarkable. FAMILY HISTORY: Unremarkable. REVIEW OF SYSTEMS: No complaints of any focal neurologic symptoms. PHYSICAL EXAMINATION: GENERAL: He is a well-nourished elderly man lying in bed, in no distress. HEENT: Pupils equal and reactive. Conjunctivae are clear. Oropharynx clear. NECK: Supple. EXTREMITIES: No cyanosis, clubbing or edema. NEUROLOGIC: He is alert and appropriate. His speech is fluent and clear. His exam is nonfocal. No tremors or other abnormal movements were seen. SUMMARY: This is an elderly gentleman who had a witnessed generalized seizure. There have been some ongoing stressors that might have provoked it. There is no structural etiology to it. We will cont inue the Keppra for now and likely discontinue it as an outpatient.
--- NOTE | 2017-12-01 22:44 | CON ---
DATE OF CONSULTATION: 12/01/2017 HISTORY OF PRESENT ILLNESS: Mr. Giraldo is a very pleasant gentleman who was actually admitted 2 days ago. He had a generalized seizure today, was transferred to the Intermediate Care Unit, hence the c onsultation. He has no history of seizure disorder. His son tells me that they were fishing in [facility] for 3 straight days several weeks back and he tolerated this extremely well. Prior to this admission, he had been complaining of progressive weakness. His son said last night, prince nuñez actually became dysarthric for a transient period of time. He has had a CT done that did not show any evidence of a thrombotic CVA, but this is jenna-admission. He has been reporting nausea and vomiting leading up to this admission. This is the main reason he came in. He denies having any abdominal pain. He has had no similar illness in the past. PAST MEDICAL HISTORY: Remarkable for, 1. Hypertension. 2. BPH. 3. Reflux disease. 4. History of a pacemaker. 5. History of a cholecystectomy. 6. History of a hip surgery. SOCIAL HISTORY: Nonsmoker, nondrinker, does not use drugs. FAMILY HISTORY: Negative for lung disease in early age. REVIEW OF SYSTEMS: Ten points otherwise negative. PHYSICAL EXAMINATION: GENERAL: He is in no distress. VITAL SIGNS: Blood pressure 101/50, heart rate is 91. He is afebrile. Oximetry is 100% on room air . HEENT: Pupils are equal. Sclerae are anicteric. NECK: Supple. LUNGS: Clear. HEART: Regular rhythm. No S3. ABDOMEN: Soft and nontender. No masses or organomegaly. EXTREMITIES: Without clubbing, cyanosis or edema. NEUROLOGIC: Grossly nonfocal. IMAGING: MRI of his brain was unremarkable. IMPRESSION: No generalized seizure of unclear etiology. There is nothing to radiographically sugges t that he has an encephalitis and other than being a little slow from Ativan that he received earlier , he appears to be intact. Neurology has been consulted. I will be happy to follow along with the other physicians caring for him at this time. This is a 50-minute consult, greater than 50% of the time was spent on the unit coordinating care.
[2017-12-02] MEDS: Sodium Chloride 0.9% 1,000 ML IV SCH (05:56)
[2017-12-02 07:31] LABS: #Eosinphils 0.3 thou/uL (0.0-0.7); #Lymphocytes 1.1 thou/uL (1.20-3.40); #Monocytes 0.6 thou/uL (0.11-0.59); #Neutrophils 6.3 thou/uL (1.40-6.50); %Basophils 0.4 % (0.0-1.0); %Eosinophils 3.4 % (0.0-10.0); %Lymphocytes 13.5 % (21.0-51.0); %Monocytes 7.5 % (0.0-10.0); %Neutrophils 75.2 % (42.0-75.0); Hemoglobin 11.6 g/dL (14.0-18.0); Mean Corpuscular Hemoglobin 33.8 pg (27.0-31.0); Mean Corpuscular Volume 99.6 fl (80.0-94.0); Mean Platelet Volume 6.7 fL (7.4-10.4); Platelet Count 199 thou/uL (130-400); RBC Distribution Width 10.9 % (11.5-14.5); Red Blood Cell (RBC) Count 3.42 mill/uL (4.70-6.10); White Blood Cell (WBC) Count 8.4 thou/uL (4.8-10.8)
[2017-12-02 07:54] LABS: ALT (SGPT) 27 U/L (8-55); AST (SGOT) 30 U/L (5-34); Albumin 3.7 g/dL (3.4-4.8); Alkaline Phosphatase 54 U/L (40-150); Anion Gap 15 mmol/L (10-20); BUN (Urea Nitrogen) 17 mg/dL (8.4-25.7); Bilirubin, Total 0.6 mg/dL (0.2-1.2); Calc. Creatinine Clearance 64 mL/min (70-130); Calcium 6.4 mg/dL (7.8-10.44); Carbon Dioxide 20 mmol/L (23-31); Chloride 114 mmol/L (98-107); Estimated GFR-MDRD 70; Globulin 2.7 g/dL (2.4-3.5); Glucose 99 mg/dL (83-110); Magnesium 1.1 mg/dL (1.6-2.6); Potassium 3.5 mmol/L (3.5-5.1); Protein, Total 6.4 g/dL (5.8-8.1); Sodium 145 mmol/L (136-145)
[2017-12-02] MEDS ORDERED: Magnesium Sulfate 4 GM in Sodium Chloride 0.9% 250 ML 250 ML IVPB SCH (08:15)
[2017-12-02] MEDS: Aspirin 81 mg Enteric Coated Tablet PO SCH (08:52)
[2017-12-02] MEDS: Tamsulosin HCl 0.4 MG CAP PO SCH (08:52)
[2017-12-02] MEDS: Amlodipine 10 MG TAB PO SCH (08:52)
[2017-12-02] MEDS: Pantoprazole 40 MG VIAL IVP SCH (08:52)
[2017-12-02] MEDS: Preparation H Ointment 28 GM TUBE TOP SCH (08:52)
[2017-12-02] MEDS: Heparin 5,000 UNITS/ML VIAL SC SCH (08:52)
[2017-12-02] MEDS: Fluticasone Propionate Nasal Spray 16 gm Bottle NASAL SCH (08:53)
[2017-12-02] MEDS: Fish Oil 1,000 MG CAP PO SCH (08:55)
[2017-12-02] MEDS ORDERED: levETIRAcetam 500 MG TAB PO SCH (09:00)
--- NOTE | 2017-12-02 09:40 | PRG ---
DATE OF SERVICE: 12/02/2017 Ed Giraldo is much more alert today. He has no recollection of yesterday. He has had no more seiz ures reported. PHYSICAL EXAMINATION: VITAL SIGNS: He is afebrile, heart rate 88, respiratory rate is 19, oximetry is 100 on room air, blo od pressure 111/70. LUNGS: His lungs are clear. HEART: Regular rhythm. ABDOMEN: Soft. LABORATORY DATA: White count 8.4, hemoglobin 11.6, platelets 199. Sodium 145, potassium 3.5, chloride 114, bicarbonate 20, BUN 70, creatinine 1.03. IMPRESSION AND PLAN: Status post 1 grand mal seizure of unclear etiology and no structural brain abn ormalities on MRI. Given the protracted vomiting illness leading up to this admission I would wonder about viral meningitis, but if he has this, it certainly is mild. I do feel a lumbar puncture is in dicated at this point in time. He could be moved to the stroke unit or in a monitored bed in my opin ion.
--- NOTE | 2017-12-02 11:20 | PDOC.PN ---
- Subjective Encounter Start Date: 12/02/17 Encounter Start Time: 09:00 Patient seen and examined for KRISTYN. No new complaints. No overnight events no more seizure - Objective Resuscitation Status: Resuscitation Status FULL:Full Resuscitation MAR Reviewed: Yes Vital Signs & Weight: Vital Signs (12 hours) Temp Pulse Resp BP BP Pulse Ox 12/02/17 11:10 98.2 F 85 20 112/57 L 91 L 12/02/17 08:52 89 12/02/17 07:40 98.7 F 89 19 111/70 100 12/02/17 07:33 98.9 F 81 20 96 12/02/17 04:00 98.9 F 81 20 121/62 94 L 12/01/17 23:39 98.0 F 84 22 H 101/56 L 96 I&O: 12/01/17 12/02/17 12/03/17 06:59 06:59 06:59 Intake Total 3949 2387.5 Output Total 1000 Balance 2949 2387.5 Result Diagrams: 12/02/17 07:25 12/02/17 07:25 Radiology Reviewed by me: Yes (MRI) EKG Reviewed by me: Yes (nsr) Phys Exam - Physical Examination Constitutional: NAD HEENT: PERRLA, moist MMs, sclera anicteric Neck: no JVD, supple Respiratory: no wheezing, no rales, no rhonchi Cardiovascular: RRR, no significant murmur, no rub Gastrointestinal: soft, non-tender, no distention, positive bowel sounds Musculoskeletal: no edema, pulses present Neurological: non-focal, normal sensation, moves all 4 limbs Psychiatric: normal affect, A&O x 3 Skin: no rash, normal turgor Dx/Plan (1) Encephalopathy acute Code(s): G93.40 - ENCEPHALOPATHY, UNSPECIFIED Status: Acute (2) Seizure Code(s): R56.9 - UNSPECIFIED CONVULSIONS Status: Acute (3) Acute kidney failure Status: Acute Comment: improving (4) Acute sinusitis, unspecified Code(s): J01.90 - ACUTE SINUSITIS, UNSPECIFIED Status: Acute Qualifiers: Recurrence: recurrent Comment: on flonase (5) Dizziness Code(s): R42 - DIZZINESS AND GIDDINESS Status: Acute (6) Nausea & vomiting Code(s): R11.2 - NAUSEA WITH VOMITING, UNSPECIFIED Status: Resolved (7) Dehydration Code(s): E86.0 - DEHYDRATION Status: Resolved (8) Constipation Code(s): K59.00 - CONSTIPATION, UNSPECIFIED Status: Resolved (9) H/O cardiac pacemaker Code(s): Z95.0 - PRESENCE OF CARDIAC PACEMAKER Status: Chronic (10) GERD (gastroesophageal reflux disease) Code(s): K21.9 - GASTRO-ESOPHAGEAL REFLUX DISEASE WITHOUT ESOPHAGITIS Status: Chronic (11) BPH (benign prostatic hyperplasia) Code(s): N40.0 - BENIGN PROSTATIC HYPERPLASIA WITHOUT LOWER URINRY TRACT SYMP Status: Chronic (12) Hypokalemia Code(s): E87.6 - HYPOKALEMIA Status: Acute (13) Hypomagnesemia Code(s): E83.42 - HYPOMAGNESEMIA Status: Acute - Plan cont current plan of care, plan discussed w/ family * His MRI is normal, but cause of new onset seizure is not obvious, will need LP to rule out viral meningitis * medication reviewed as below * symptomatic treatment * change to oral keppra * replace magnesium. Review of Systems - Review of Systems Eyes: negative: Pain, Vision Change, Conjunctivae Inflammation, Eyelid Inflammation, Redness, Other ENT: negative: Ear Pain, Ear Discharge, Nose Pain, Nose Discharge, Nose Congestion, Mouth Pain, Mouth Swelling, Throat Pain, Throat Swelling, Other Respiratory: negative: Cough, Dry, Shortness of Breath, Hemoptysis, SOB with Excertion, Pleuritic Pain, Sputum, Wheezing Cardiovascular: negative: chest pain, palpitations, orthopnea, paroxysmal nocturnal dyspnea, edema, light headedness, other Gastrointestinal: negative: Nausea, Vomiting, Abdominal Pain, Diarrhea, Constipation, Melena, Hematochezia, Other Genitourinary: negative: Dysuria, Frequency, Incontinence, Hematuria, Retention , Other Musculoskeletal: negative: Neck Pain, Shoulder Pain, Arm Pain, Back Pain, Hand Pain, Leg Pain, Foot Pain, Other Skin: negative: Rash, Lesions, Deep, Bruising, Other - Medications/Allergies Allergies/Adverse Reactions: Allergies Allergy/AdvReac Type Severity Reaction Status Date / Time Iodinated Contrast- Oral and Allergy Rash Verified 04/09/17 03:13 IV Dye [Iodinated Contrast Media - Oral and] Medications: Current Medications Acetaminophen (Tylenol) 650 mg PO Q4H PRN PRN Reason: Headache/Fever or Pain Hydrocodone Bitart/Acetaminophen ([place] 5/325) 1 tab PO Q4H PRN PRN Reason: Moderate Pain (4-6) Last Admin: 12/01/17 22:32 Dose: 1 tab Al Hydroxide/Mg Hydroxide (Maalox) 30 ml PO Q6H PRN PRN Reason: Heartburn or Indigestion Amlodipine Besylate (Norvasc) 10 mg PO DAILY [facility] Last Admin: 12/02/17 08:52 Dose: 10 mg Artificial Tears (Tears Renewed 15ml Bottle) 0 drop EA EYE PRN PRN PRN Reason: Dry Eyes Aspirin (Ecotrin) 81 mg PO QAM [facility] Last Admin: 12/02/17 08:52 Dose: 81 mg Bisacodyl (Dulcolax) 10 mg OR Q24H PRN PRN Reason: Constipation Fish Oil (Fish Oil) 1,000 mg PO QAM [facility] Last Admin: 12/02/17 08:55 Dose: 1,000 mg Fluticasone Propionate (Flonase Nasal [place]) 0 gm NASAL DAILY [facility] Last Admin: 12/02/17 08:53 Dose: Not Given Guaifenesin (Robitussin Sf) 200 mg PO Q4H PRN PRN Reason: Cough Heparin Sodium (Porcine) (Heparin) 5,000 units SC BID [facility] Last Admin: 12/02/17 08:52 Dose: 5,000 units Hydralazine HCl (Apresoline) 10 mg SLOW IVP Q4H PRN PRN Reason: Systolic BP > 180 Promethazine HCl 12.5 mg/ (Sodium Chloride) 50.5 mls @ 151.5 mls/hr IVPB Q6H PRN PRN Reason: Nausea Last Admin: 11/29/17 17:06 Dose: 50.5 mls Sodium Chloride (Normal Saline 0.9%) 1,000 mls @ 125 mls/hr IV .Q8H [facility] Last Admin: 12/02/17 05:56 Dose: 1,000 mls Magnesium Sulfate 4 gm/ Sodium (Chloride) 258 mls @ 86 mls/hr IVPB ONE [facility] Stop: 12/02/17 12:00 Last Admin: 12/02/17 08:51 Dose: 258 mls Labetalol HCl (Normodyne) 20 mg SLOW IVP Q4H PRN PRN Reason: Systolic BP > 180 Levetiracetam (Keppra) 500 mg PO BID [facility] Last Admin: 12/02/17 08:52 Dose: 500 mg Loperamide HCl (Imodium) 2 mg PO PRN PRN PRN Reason: Diarrhea/Loose Stools Loratadine (Claritin) 10 mg PO DAILYPRN PRN PRN Reason: Sinus Symptoms Last Admin: 11/30/17 11:43 Dose: 10 mg Magnesium Hydroxide (Milk Of Magnesium) 30 ml PO DAILYPRN PRN PRN Reason: Constipation Last Admin: 12/01/17 11:18 Dose: 30 ml Meclizine HCl (Antivert) 12.5 mg PO TIDPRN PRN PRN Reason: Dizziness Mineral Oil/White Petrolatum (Eucerin Cream) 0 gm TOP BIDPRN PRN PRN Reason: Dry Skin Ondansetron HCl (Zofran Odt) 4 mg PO Q6H PRN PRN Reason: Nausea/Vomiting Ondansetron HCl (Zofran) 4 mg IVP Q6H PRN PRN Reason: Nausea/Vomiting Last Admin: 11/29/17 22:59 Dose: 4 mg Pantoprazole Sodium (Protonix) 40 mg IVP DAILY [facility] Last Admin: 12/02/17 08:52 Dose: 40 mg Phenol (Chloraseptic [place] 180 Ml Bot) 0 ml PO PRN PRN PRN Reason: Sore Throat Phenyleph/Shark Oil/Min Oil/Petrol (Preparation H Ointment) 0 gm TOP BID [facility] Last Admin: 12/02/17 08:52 Dose: Not Given Senna (Senokot) 2 tab PO HSPRN PRN PRN Reason: Constipation Sodium Chloride ([place] Nasal [place] 0.65%) 0 ml EA NARE QIDPRN PRN PRN Reason: Nasal Congestion Sodium Chloride (Flush - Normal Saline) 10 ml IVF Q12HR [facility] Last Admin: 12/02/17 08:52 Dose: 10 ml Sodium Chloride (Flush - Normal Saline) 10 ml IVF PRN PRN PRN Reason: Saline Flush Tamsulosin HCl (Flomax) 0.4 mg PO DAILY [facility] Last Admin: 12/02/17 08:52 Dose: 0.4 mg Zolpidem Tartrate (Ambien) 5 mg PO HSPRN PRN PRN Reason: Insomnia
[2017-12-02 12:28] LABS: PTT 24.5 SEC (22.9-36.1); Prothrombin Time 13.4 SEC (12.0-14.7)
[2017-12-02] MEDS ORDERED: Sodium Chloride 0.9% 1,000 ML IV SCH (12:45)
[2017-12-02 15:02] LABS: CSF Source CSF; Clarity Hazy (Clear); RBC Count - Manual 1050 /cumm (None Seen); Tube # 4; WBC/NonHematics Count - Manual 2 /cumm (0-5)
[2017-12-02 15:32] VITALS: BP 128/67; TEMP 98.5
--- NOTE | 2017-12-02 15:36 | RAD ---
LUMBAR PUNCTURE WITH FLUOROSCOPY: Date: 12/02/17 HISTORY: 77-year-old male with history of seizure, with clinical concern for meningitis. TECHNIQUE/FINDINGS: Following informed consent, the patient was placed in the prone position on the fluoroscopic table. T he back was prepped and draped in the usual sterile fashion. Local anesthesia was obtained with 1% xy locaine. A 20 gauge spinal needle was introduced at the L2-L3 level. Approximately 10 mL of clear, co lorless spinal fluid was collected in four separate aliquots. The patient tolerated the procedure wel l and will be moved back to his room. IMPRESSION: Successful fluoroscopic guided lumbar puncture. POS: [facility]
--- NOTE | 2017-12-02 18:34 | DIS ---
DATE OF ADMISSION: 11/29/2017 DATE OF DISCHARGE: 12/02/2017 DISCHARGE DISPOSITION: Home. PRIMARY DISCHARGE DIAGNOSES: 1. Acute kidney failure. 2. New onset seizure. 3. Postictal encephalopathy. 4. Hypomagnesemia. SECONDARY DISCHARGE DIAGNOSES: 1. Hypertension. 2. History of cardiac pacemaker. PRIMARY PROCEDURE/OPERATION: Lumbar puncture. RADIOLOGICAL INVESTIGATION: CT brain x2 was normal. MRI brain was normal. CT of the abdomen and pe lvis showed constipation. SIGNIFICANT LABORATORY DATA: Please see my progress note from today and my HPI. DISCHARGE MEDICATIONS: The patient will continue all his previous medication. New medication is Kep pra 500 mg twice daily. The patient is advised to discontinue hydrochlorothiazide 25 mg p.o. daily. CONTRAINDICATIONS: None. CODE STATUS: FULL CODE. INPATIENT CONSULTANTS: Dr. Feliciano Gonzalez, neurologist, was consulted for seizure. He recommended to continue Keppra and he will discontinue that medication upon followup visit. Dr. Watson was following while in [facility]. TEST RESULTS PENDING ON DISCHARGE: CSF culture result. DISCHARGE PLAN: Post hospital, the patient will follow up with primary care physician in 1 week. Th e patient is instructed to follow up with the neurologist in 2 weeks. HOSPITAL COURSE: This patient was admitted by me. Please see my HPI for further details. The patie nt was presented with intractable nausea and vomiting. He was having very poor p.o. intake. He was feeling weak and dizzy and that is why he came to emergency room, at that time he was found with acut e kidney failure. He had abnormal electrolytes, which was replaced while in hospital. The patient w as admitted to medical floor. We treated him with IV fluid with improvement in his renal function to normal. At medical floor, the patient developed acute onset seizure which was generalized tonic clonic in schuyler ure and subsequently the patient had postictal phase and code miroslava was called. We did immediate CT brain and subsequently we did a MRI brain which was normal. EEG was also done. Neurology was also c onsulted with transferring to [facility]. Dr. Watson saw this patient. All investigation was normal and that is why we did not have any exact etiology of seizure and that i s why we did lumbar puncture today. CSF is unremarkable. The patient is keen to go home today and a s per Neurology recommendation, we are prescribing Keppra and that medication will be discontinued ba sed on Neurology recommendation upon followup visit. I have given instruction to the patient that he should not drive until cleared by Neurology because o f seizure for his safety. The patient is seen and examined at bedside today. Please see my progress note from today for furthe r detail.
[2017-12-06 12:15] LABS: West Nile Virus IgG Ab - CSF Negative (Negative); West Nile Virus IgM Ab - CSF Negative (Negative)
== END 2017-12-02 18:15 | disposition home or self-care (01) | DRG 682 ==
LOC: ERS 10:06 → T4-A 12:45 → IMCU/EMU 12-01 08:16
PROVIDERS: ADMIT Internal Medicine; ATTEND Internal Medicine
PROC: 009U3ZX Drainage of Spinal Canal, Percutaneous Approach, Diagnostic (ICD-10-PCS; principal; 2017-12-02)
DX: N17.9 Acute kidney failure, unspecified (principal); G93.40 Encephalopathy, unspecified; G40.802 Other epilepsy, not intractable, without status epilepticus; E86.0 Dehydration; J01.90 Acute sinusitis, unspecified; E87.6 Hypokalemia; E83.42 Hypomagnesemia; M54.9 Dorsalgia, unspecified; G89.29 Other chronic pain; I10 Essential (primary) hypertension; K21.9 Gastro-esophageal reflux disease without esophagitis; N40.0 Benign prostatic hyperplasia without lower urinary tract symptoms; R11.2 Nausea with vomiting, unspecified; K59.00 Constipation, unspecified; Z95.0 Presence of cardiac pacemaker; Z90.49 Acquired absence of other specified parts of digestive tract
CPT/HCPCS: 36415; 36416; 62270; 70450; 70551; 74176; 80048; 80053; 81003; 82553; 82570; 82945; 83735; 84100; 84146; 84156; 84157; 84300; 84443; 84484; 85025; 85610; 85730; 86788; 86789; 87070; 87086; 87205; 89051; 93005; 93010; 95816; 95819; 96360; A4216; C9113; J1644; J1953; J2060; J2405; J2550; J2930; J3475; J3480; J7050; Q0162

== ENCOUNTER 2017-12-08 11:26 | Outpatient (CLI) | payer MEDICARE | END 2017-12-08 11:27 | disposition home or self-care (01) | LOC: LABBT 11:26 | PROVIDERS: ATTEND Internal Medicine Cardiovascular Disease | DX: Z01.818 Encounter for other preprocedural examination (principal); I47.2 Ventricular tachycardia | CPT/HCPCS: 93005; 93010 ==

== ENCOUNTER 2017-12-15 06:34 | Day surgery (SDC) | payer MEDICARE ==
[2017-12-08 11:32] VITALS: BMI 26.6
[2017-12-15] MEDS ORDERED: Lidocaine 1% (PF) 30 ML VIAL ONE ×2 (07:02→10:47)
[2017-12-15] MEDS ORDERED: Iopamidol 370 76% 100 ML VIAL ONE (09:34)
[2017-12-15] MEDS ORDERED: Heparin 10,000 UNITS/1 ML VIAL ONE (10:46)
[2017-12-15] MEDS ORDERED: Verapamil 5 MG/2 ML VIAL ONE (10:46)
[2017-12-15] MEDS ORDERED: Nitroglycerin 100MG/250ML BOT 250 ML ONE (10:47)
[2017-12-15] MEDS ORDERED: Midazolam HCl 2 mg/2 ml Vial ONE (11:11)
[2017-12-15] MEDS ORDERED: Fentanyl 100 MCG/2 ML VIAL ONE (11:11)
== END 2017-12-15 14:55 | disposition home or self-care (01) ==
LOC: SDC 06:34
PROVIDERS: ATTEND Internal Medicine Cardiovascular Disease
DX: I25.10 Atherosclerotic heart disease of native coronary artery without angina pectoris (principal); I47.2 Ventricular tachycardia; I44.2 Atrioventricular block, complete; I10 Essential (primary) hypertension; Z95.0 Presence of cardiac pacemaker; Z91.041 Radiographic dye allergy status; Z79.82 Long term (current) use of aspirin; Z79.2 Long term (current) use of antibiotics; Z79.899 Other long term (current) drug therapy
CPT/HCPCS: 93458; C1769; 99152; J1644; J2001; J2250; J3010

== ENCOUNTER 2020-02-07 06:15 | Day surgery (SDC) | payer MEDICARE ==
[2020-02-04 14:25] VITALS: BMI 27.2
[~2020-02-07 06:15] MED LIST changes: +Fluorouracil 100 MG, Enoxaparin Sodium 25 MG, EPINEPHrine 0.3 MG in Ophthalmic Irrigati... IRR SCH; -ISOVUE-370 76%-LOCM 1 ML ONE
[2020-02-07] MEDS ORDERED: Cyclopentolate 1% Opth Drop 2 ML BOT ONE (06:23)
[2020-02-07] MEDS ORDERED: Phenylephrine 2.5% Ophth Soln 5 ML BOT ONE (06:23)
[2020-02-07] MEDS ORDERED: PROPOFOL 60 ML ONE (06:26)
[2020-02-07] MEDS ORDERED: Fentanyl 100 MCG/2 ML VIAL ONE ×2 (06:26→07:46)
[2020-02-07] MEDS ORDERED: Midazolam HCl 2 mg/2 ml Vial ONE ×2 (06:26→07:46)
[2020-02-07] MEDS ORDERED: Enoxaparin Sodium 30 MG/0.3 ML SYRINGE ONE (09:58)
[2020-02-07] MEDS ORDERED: Maxitrol 0.1% Opth Oint 3.5 GM TUBE ONE (09:58)
[2020-02-07] MEDS ORDERED: Bupivacaine PF 0.75% SDV 10 ML ONE (09:58)
[2020-02-07] MEDS ORDERED: Triamcinolone 40 MG/ML VIAL ONE (09:58)
[2020-02-07] MEDS ORDERED: Lidocaine 1% PF 5 ML VIAL ONE (09:58)
[2020-02-07] MEDS ORDERED: Indocyanine Green 25 MG/10 ML VIAL ONE (09:58)
[2020-02-07] MEDS ORDERED: Lidocaine 4% PF 5 ML AMP ONE (09:58)
[2020-02-07] MEDS ORDERED: CEFAZOLIN 1 GM VIAL ONE (09:58)
--- NOTE | 2020-02-08 15:32 | OP ---
DATE OF PROCEDURE: 02/07/2020 PREOPERATIVE DIAGNOSIS: Epiretinal membrane, left eye. POSTOPERATIVE DIAGNOSIS: Epiretinal membrane, left eye. PROCEDURE: Pars plana vitrectomy and membrane peel, left eye. ANESTHESIA: Local with monitored anesthesia care. PROCEDURE IN DETAIL: The patient was identified in the preoperative holding area. Appropriate informed consent for the planned surgical procedure on the left eye had been obtained. Patient was transported to the operative suite. Appropriate cardiopulmonary monitoring was established. Local anesthesia obtained using retrobulbar modified Van Lint lid block using 50:50 mixture of 4% lidocaine and 0.75% bupivacaine. The patient was prepped and draped in usual sterile manner for ophthalmic surgery in the left eye. The lid speculum was placed in the left eye. A 25-gauge trocar was placed in the conjunctiva and sclera supratemporally, inferotemporally, and supranasally. Infusion line was placed inferotemporally. Light pipe vitreous cutter was inserted into the eye. Core vitrectomy was performed. Indocyanine green dye was infused on the posterior pole x4 due to poor staining. Eventually, epiretinal membrane was identified and was peeled in its entirety off the posterior pole. Indirect ophthalmoscopy was used to examine the retina 360 degrees and prophylactic laser was placed behind the sclerotomy sites. Trocar was removed. The eye was noted to retain pressure well. Retrobulbar Kenalog and subconjunctival Ancef were placed. Antibiotic ointment was placed. The eye was patched and shielded. The patient was taken to postop recovery unit in good condition having suffered no immediate perioperative complications. The patient was instructed to keep patch and shied on, avoid lifting or bending, and followup appointment with Dr. Ndiaye. Job ID: [id number]
== END 2020-02-07 09:35 | disposition home or self-care (01) ==
LOC: SDC 06:15
PROVIDERS: ATTEND Ophthalmology Retina Specialist
PROC: 08T53ZZ Resection of Left Vitreous, Percutaneous Approach (ICD-10-PCS; principal; 2020-02-07)
PROC: 08NF3ZZ Release Left Retina, Percutaneous Approach (ICD-10-PCS; 2020-02-07)
DX: H35.372 Puckering of macula, left eye (principal); I10 Essential (primary) hypertension; M19.90 Unspecified osteoarthritis, unspecified site; N40.0 Benign prostatic hyperplasia without lower urinary tract symptoms; Z79.82 Long term (current) use of aspirin; Z79.899 Other long term (current) drug therapy; Z91.041 Radiographic dye allergy status; Z95.0 Presence of cardiac pacemaker
CPT/HCPCS: J0171; J0690; J1650; J2001; J2250; J2704; J3010; J3301; J3490; J9190

== ENCOUNTER 2020-06-24 11:44 | Emergency (ER) | payer MEDICARE ==
[2020-06-24 12:28] LABS: #Basophils 0.1 thou/uL (0.0-0.2); #Eosinphils 0.2 thou/uL (0.0-0.7); #Lymphocytes 1.7 thou/uL (1.20-3.40); #Monocytes 0.7 thou/uL (0.11-0.59); #Neutrophils 2.8 thou/uL (1.40-6.50); %Eosinophils 2.8 % (0.0-10.0); %Lymphocytes 30.9 % (21.0-51.0); %Monocytes 13.3 % (0.0-10.0); Hemoglobin 12.7 g/dL (14.0-18.0); Mean Corpuscular HGB CONC 34.9 g/dL (32.0-36.0); Mean Corpuscular Hemoglobin 34.5 pg (27.0-31.0); Platelet Count 187 thou/uL (130-400); RBC Distribution Width 10.8 % (11.5-14.5); Red Blood Cell (RBC) Count 3.69 mill/uL (4.70-6.10); White Blood Cell (WBC) Count 5.4 thou/uL (4.8-10.8)
[2020-06-24 12:47] LABS: ALT (SGPT) 30 U/L (8-55); AST (SGOT) 25 U/L (5-34); Albumin 4.4 g/dL (3.4-4.8); Alkaline Phosphatase 84 U/L (40-110); Anion Gap 19 mmol/L (10-20); BUN (Urea Nitrogen) 23 mg/dL (8.4-25.7); Bilirubin, Total 0.7 mg/dL (0.2-1.2); Calc. Creatinine Clearance 0 mL/min (70-130); Calcium 6.5 mg/dL (7.8-10.44); Carbon Dioxide 23 mmol/L (23-31); Chloride 102 mmol/L (98-107); Glucose 99 mg/dL (83-110); Lipase 27 U/L (8-78); Protein, Total 7.4 g/dL (5.8-8.1); Sodium 140 mmol/L (136-145)
--- NOTE | 2020-06-24 13:17 | RAD ---
PORTABLE CHEST: Date: 06/24/2020 INDICATION: Chest pain. COMPARISON: 01/16/2018. FINDINGS: Lung sánchez appear clear and unchanged in appearance. Heart size upper normal and stable. Pacemaker l marisol are unchanged in position. No evidence of vascular congestion. IMPRESSION: No acute findings. POS: AGW
== END 2020-06-24 17:05 | disposition home or self-care (01) ==
LOC: ERS 11:44
DX: R07.89 Other chest pain (principal); E78.5 Hyperlipidemia, unspecified; E78.00 Pure hypercholesterolemia, unspecified; I10 Essential (primary) hypertension; Z79.899 Other long term (current) drug therapy
CPT/HCPCS: 36415; 71045; 80053; 83690; 84484; 85025; 93005; 94760

== ENCOUNTER 2021-03-26 13:15 | Outpatient (CLI) | payer MEDICARE | END 2021-03-26 13:16 | disposition home or self-care (01) | LOC: MRI 13:15 | PROVIDERS: ATTEND Anesthesiology Pain Medicine | DX: M48.062 Spinal stenosis, lumbar region with neurogenic claudication (principal); M47.816 Spondylosis without myelopathy or radiculopathy, lumbar region; M51.36 Other intervertebral disc degeneration, lumbar region | CPT/HCPCS: 72148 ==

== ENCOUNTER 2021-09-04 12:55 | Outpatient (CLI) | payer MEDICARE ==
[2021-09-04 14:33] LABS: Bilirubin Neg (Negative); Blood, Urine Negative (Negative); Clarity Clear (Clear); Glucose, Urine (Dipstick) 50 mg/dL (Negative); Ketone, Urine Negative (Negative); Leukocyte 100 (Negative); Nitrite Negative (Negative); Protein, Urine (Dipstick) 15 mg/dl (Neg-Trace); Specific Gravity, Urine 1.015 (1.002-1.036); Urobilinogen Normal mg/dL (Less than 2)
[2021-09-04 14:34] LABS: Hemoglobin 13.5 g/dL (13.5-17.5); Mean Corpuscular HGB CONC 34.2 g/dL (32.0-36.0); Mean Corpuscular Hemoglobin 34.1 pg (27.0-33.0); Mean Corpuscular Volume 99.7 fl (81.2-95.1); Mean Platelet Volume 9.5 fl (7.4-10.4); Platelet Count 372 10x3/uL (150-450); RBC Distribution Width 11.3 % (11.5-14.5); Red Blood Cell (RBC) Count 3.96 10x6/uL (4.32-5.72); White Blood Cell (WBC) Count 7.9 10x3/uL (3.5-10.5)
[2021-09-04 14:42] LABS: Bacteria/HPF None Seen HPF (None Seen); RBC/HPF 0-3 HPF (0-3); Squamous Epithelial 0-3 HPF (0-3)
[2021-09-04 14:54] LABS: PTT 23.4 sec (22.0-33.0); Prothrombin Time 10.8 sec (9.5-12.1)
[2021-09-04 14:55] LABS: Anion Gap 17 mmol/L (10-20); BUN (Urea Nitrogen) 49 mg/dL (8.4-25.7); Calc. Creatinine Clearance 0 mL/min (70-130); Calcium 9.1 mg/dL (7.8-10.44); Carbon Dioxide 23 mmol/L (23-31); Chloride 105 mmol/L (98-107); Glucose 81 mg/dL (83-110); Potassium 5.2 mmol/L (3.5-5.1); Sodium 140 mmol/L (136-145)
[2021-09-04 23:48] LABS: SARS-CoV-2 PCR by NAA Not Detected (NotDetected)
== END 2021-09-04 12:56 | disposition home or self-care (01) ==
LOC: LABBT 12:55
PROVIDERS: ATTEND Urology
DX: Z01.818 Encounter for other preprocedural examination (principal); I10 Essential (primary) hypertension; M16.9 Osteoarthritis of hip, unspecified; N43.3 Hydrocele, unspecified; R97.20 Elevated prostate specific antigen [PSA]; N40.1 Benign prostatic hyperplasia with lower urinary tract symptoms; N40.2 Nodular prostate without lower urinary tract symptoms; R35.0 Frequency of micturition; N13.8 Other obstructive and reflux uropathy; Z95.0 Presence of cardiac pacemaker; Z20.822 Contact with and (suspected) exposure to COVID-19
CPT/HCPCS: 80048; 81001; 85027; 85610; 85730; 87086; 93005; U0003; U0005; 93010

== ENCOUNTER 2022-02-02 11:28 | Outpatient (CLI) | payer MEDICARE | END 2022-02-02 11:29 | disposition home or self-care (01) | LOC: MRI 11:28 | PROVIDERS: ATTEND Nurse Practitioner Family | DX: M48.062 Spinal stenosis, lumbar region with neurogenic claudication (principal); M47.816 Spondylosis without myelopathy or radiculopathy, lumbar region | CPT/HCPCS: 72148 ==

== ENCOUNTER 2022-05-16 01:59 | Inpatient (IN) | payer MEDICARE ==
[2022-05-16 03:04] LABS: #Basophils 0.1 thou/uL (0.0-0.2); #Eosinphils 0.1 thou/uL (0.0-0.7); #Lymphocytes 1.4 thou/uL (1.20-3.40); #Monocytes 1.7 thou/uL (0.11-0.59); #Neutrophils 12.2 thou/uL (1.40-6.50); %Basophils 0.5 % (0.0-1.0); %Eosinophils 0.7 % (0.0-10.0); %Lymphocytes 9.1 % (21.0-51.0); %Monocytes 10.7 % (0.0-10.0); %Neutrophils 78.9 % (42.0-75.0); Hemoglobin 11.3 g/dL (14.0-18.0); Mean Corpuscular HGB CONC 34.7 g/dL (32.0-36.0); Mean Corpuscular Hemoglobin 34.8 pg (27.0-31.0); Mean Platelet Volume 7.9 fL (7.4-10.4); Platelet Count 252 10x3/uL (130-400); RBC Distribution Width 10.5 % (11.5-14.5); Red Blood Cell (RBC) Count 3.26 mill/uL (4.70-6.10); White Blood Cell (WBC) Count 15.4 10x3/uL (4.8-10.8)
[2022-05-16 03:13] LABS: Acetaminophen Less than 10.0 mcg/mL (10.0-30.0)
[2022-05-16 03:14] LABS: Alcohol Less than 10 mg/dL (Less than 10); Salicylate Less than 8.0 mg/dL (15.0-30.0)
[2022-05-16 03:18] LABS: ALT (SGPT) 22 U/L (8-55); AST (SGOT) 23 U/L (5-34); Albumin 4.4 g/dL (3.4-4.8); Alkaline Phosphatase 63 U/L (40-110); Anion Gap 23 mmol/L (10-20); BUN (Urea Nitrogen) 78 mg/dL (8.4-25.7); Bilirubin, Total 0.6 mg/dL (0.2-1.2); Calc. Creatinine Clearance 0 mL/min (70-130); Carbon Dioxide 14 mmol/L (23-31); Chloride 103 mmol/L (98-107); Estimated GFR 13; Globulin 3.5 g/dL (2.4-3.5); Glucose 144 mg/dL (83-110); Lipase 116 U/L (8-78); Potassium 3.2 mmol/L (3.5-5.1); Protein, Total 7.9 g/dL (5.8-8.1); Sodium 137 mmol/L (136-145)
[2022-05-16 03:19] LABS: Bacteria/HPF None Seen HPF (None Seen); Bilirubin Negative (Negative); Blood, Urine Negative (Negative); Clarity Clear (Clear); Glucose, Urine (Dipstick) Normal (Negative); Ketone, Urine Negative (Negative); Leukocyte 75 Leu/uL (Negative); Nitrite Negative (Negative); Protein, Urine (Dipstick) 20 mg/dL (Neg-Trace); RBC/HPF 0-3 HPF (0-3); Specific Gravity, Urine 1.019 (1.002-1.036); Squamous Epithelial None Seen HPF (0-3); Urobilinogen Normal mg/dL (Less than 2); WBC/HPF 0-3 HPF (0-3)
[2022-05-16 03:21] LABS: Calcium 6.7 mg/dL (7.8-10.44); Magnesium Less than 0.6 mg/dL (1.6-2.6)
[2022-05-16] MEDS ORDERED: Magnesium 2 GM/50 ML BAG (IN WATER) ONE ×2 (03:34→21:18)
[2022-05-16] MEDS ORDERED: Calcium Gluc 4.6 MEQ/10 ML (100 MG/ML) ONE ×2 (04:52→04:53)
[2022-05-16] MEDS ORDERED: CALCIUM GLUC 1 GM/NS 50 ML BAG ONE (04:52)
[2022-05-16] MEDS ORDERED: Potassium Chloride 20 MEQ TAB PO SCH (07:15)
[2022-05-16 07:18] LABS: SARS-CoV-2 NAA Rapid Test Not Detected (NotDetected)
[2022-05-16] MEDS ORDERED: Potassium Chloride 20 MEQ TAB ONE ×3 (07:24→16:44)
[2022-05-16 07:31] LABS: Anion Gap 20 mmol/L (10-20); BUN (Urea Nitrogen) 82 mg/dL (8.4-25.7); Calc. Creatinine Clearance 0 mL/min (70-130); Carbon Dioxide 15 mmol/L (23-31); Chloride 106 mmol/L (98-107); Estimated GFR 12; Glucose 127 mg/dL (83-110); Magnesium 1.2 mg/dL (1.6-2.6); Potassium 3.3 mmol/L (3.5-5.1); Sodium 138 mmol/L (136-145)
[2022-05-16 07:36] LABS: Calcium 6.6 mg/dL (7.8-10.44)
[2022-05-16] MEDS ORDERED: Ondansetron PF 4 MG/2 ML Vial IVP PRN (08:50)
[2022-05-16] MEDS ORDERED: Guaifenesin DM 100-10/5 ML UDCUP PO PRN (08:50)
[2022-05-16] MEDS ORDERED: Calcium Gluconate 4.6 MEQ in Sodium Chloride 0.9% 100 ML IVPB SCH (08:50)
[2022-05-16] MEDS ORDERED: Loperamide HCl 2 MG CAP PO PRN (08:50)
[2022-05-16] MEDS ORDERED: Dextrose 5% in Water 1,000 ML IV SCH ×2 (09:00→18:30)
[2022-05-16] MEDS ORDERED: Atenolol 50 MG TAB PO SCH (09:00)
[2022-05-16] MEDS ORDERED: Tamsulosin HCl 0.4 MG CAP PO SCH (09:00)
[2022-05-16] MEDS: Apixaban 5 MG TAB PO SCH (09:23)
[2022-05-16] MEDS: Montelukast Sodium 10 mg Tablet PO SCH (09:24)
[2022-05-16] MEDS: Potassium Chloride 20 MEQ TAB PO SCH ×2 (09:30→16:47)
[2022-05-16] MEDS ORDERED: CALCIUM GLUC 1 GM/NS 50 ML 1 GM in Premix Bag 1 BAG IVPB SCH (09:30)
[2022-05-16] MEDS ORDERED: Dextrose 5 % And 0.9 % NaCl 500 ML IV SCH (10:00)
[2022-05-16] MEDS: Multivitamin W/ Minerals 1 TAB PO SCH (10:07)
[2022-05-16] MEDS ORDERED: HYDROcodone/Acetaminophen 5/325 mg Tablet ONE (12:12)
[2022-05-16] MEDS: HYDROcodone/Acetaminophen 5/325 mg Tablet PO PRN (12:13)
[2022-05-16] MEDS ORDERED: Sodium Bicarbonate 150 MEQ in Dextrose 5% in Water 1,000 ML IV SCH ×2 (14:00→18:25)
[2022-05-16] MEDS ORDERED: NOREPINEPHRINE 8 MG/250 ML-D5W 250 ML IVPB SCH (18:30)
[2022-05-16 18:54] LABS: Campy jejuni + coli by PCR Negative (Negative); STEC Shiga Toxin 1+2 Negative (Negative); Salmonella spp. by PCR Negative (Negative); Shigella spp + EIEC by PCR Negative (Negative)
[2022-05-16 21:01] LABS: Anion Gap 19 mmol/L (10-20); BUN (Urea Nitrogen) 79 mg/dL (8.4-25.7); Calc. Creatinine Clearance 12 mL/min (70-130); Carbon Dioxide 14 mmol/L (23-31); Chloride 104 mmol/L (98-107); Estimated GFR 10; Glucose 285 mg/dL (83-110); Potassium 3.5 mmol/L (3.5-5.1); Sodium 133 mmol/L (136-145)
[2022-05-16 21:06] LABS: Calcium 5.9 mg/dL (7.8-10.44); Magnesium 0.7 mg/dL (1.6-2.6)
[2022-05-16] MEDS ORDERED: Magnesium Sulfate In Water 4 GM in Premix Bag 1 BAG IVPB SCH (21:15)
[2022-05-16] MEDS ORDERED: Calcium Gluc 4.6 MEQ/10 ML (100 MG/ML) SLOW IVP SCH (21:17)
[2022-05-16] MEDS ORDERED: NOREPINEPHRINE 8 MG/250 ML-D5W 250 ML ONE (22:01)
[2022-05-16] MEDS: Calcium Carbonate 600 MG + Vit D TAB PO SCH (22:15)
[2022-05-17] MEDS: Acetaminophen 325 MG TAB PO PRN (00:42)
[2022-05-17] MEDS ORDERED: HumaLOG 300 UNITS/3 ML VIAL SC PRN (02:20)
[2022-05-17 03:45] LABS: #Eosinphils 0.1 thou/uL (0.0-0.7); #Lymphocytes 1.2 thou/uL (1.20-3.40); #Monocytes 1.4 thou/uL (0.11-0.59); #Neutrophils 9.9 thou/uL (1.40-6.50); %Basophils 0.1 % (0.0-1.0); %Eosinophils 0.4 % (0.0-10.0); %Lymphocytes 9.4 % (21.0-51.0); %Monocytes 10.8 % (0.0-10.0); %Neutrophils 79.3 % (42.0-75.0); Hemoglobin 9.5 g/dL (14.0-18.0); Mean Corpuscular HGB CONC 33.9 g/dL (32.0-36.0); Mean Corpuscular Hemoglobin 33.8 pg (27.0-31.0); Mean Corpuscular Volume 99.7 fl (78.0-98.0); Mean Platelet Volume 7.8 fL (7.4-10.4); Platelet Count 192 10x3/uL (130-400); RBC Distribution Width 10.3 % (11.5-14.5); White Blood Cell (WBC) Count 12.4 10x3/uL (4.8-10.8)
[2022-05-17 04:05] LABS: Albumin 3.6 g/dL (3.4-4.8); Anion Gap 17 mmol/L (10-20); BUN (Urea Nitrogen) 74 mg/dL (8.4-25.7); BUN/Creatinine Ratio 15.26; CK (CPK) 989 U/L (30-200); Calc. Creatinine Clearance 13 mL/min (70-130); Carbon Dioxide 18 mmol/L (23-31); Chloride 103 mmol/L (98-107); Estimated GFR 11; Glucose 182 mg/dL (83-110); Magnesium 2.1 mg/dL (1.6-2.6); Phosphorus 3.8 mg/dL (2.3-4.7); Potassium 3.4 mmol/L (3.5-5.1); Sodium 135 mmol/L (136-145)
[2022-05-17 04:10] LABS: Calcium 6.6 mg/dL (7.8-10.44)
[2022-05-17] MEDS: Apixaban 5 MG TAB PO SCH (07:50)
[2022-05-17] MEDS ORDERED: Potassium Chloride 20 MEQ TAB PO SCH ×2 (09:00→12:15)
[2022-05-17] MEDS: Calcium Carbonate 600 MG + Vit D TAB PO SCH ×2 (09:14→16:12)
[2022-05-17] MEDS: Montelukast Sodium 10 mg Tablet PO SCH (09:15)
[2022-05-17] MEDS: Multivitamin W/ Minerals 1 TAB PO SCH (09:15)
[2022-05-17] MEDS: Lidocaine 5% Patch TD SCH (09:15)
[2022-05-17] MEDS: Nicotine 21 MG PATCH TD SCH (09:16)
[2022-05-17] MEDS: Enoxaparin Sodium 80 MG/0.8 ML SYRINGE SC SCH (09:16)
[2022-05-17] MEDS: Fluticasone Propionate Nasal Spray 16 gm Bottle NASAL SCH (09:56)
[2022-05-17] MEDS ORDERED: Calcium Gluconate 4.6 MEQ in Sodium Chloride 0.9% 100 ML IVPB SCH (10:43)
[2022-05-17] MEDS ORDERED: Sodium Bicarbonate 150 MEQ in Dextrose 5% in Water 1,000 ML IV SCH (11:00)
[2022-05-17] MEDS: Transdermal Patch Removal TOP SCH (20:29)
[2022-05-17] MEDS: Rifaximin 550 MG TAB PO SCH (20:29)
[2022-05-17] MEDS: HYDROcodone/Acetaminophen 5/325 mg Tablet PO PRN (21:07)
[2022-05-18 05:11] LABS: #Lymphocytes 1.1 thou/uL (1.20-3.40); #Monocytes 1.5 thou/uL (0.11-0.59); #Neutrophils 16.6 thou/uL (1.40-6.50); %Basophils 0.1 % (0.0-1.0); %Eosinophils 0.1 % (0.0-10.0); %Lymphocytes 5.8 % (21.0-51.0); Hemoglobin 9.9 g/dL (14.0-18.0); Mean Corpuscular HGB CONC 34.1 g/dL (32.0-36.0); Mean Corpuscular Hemoglobin 34.6 pg (27.0-31.0); Mean Platelet Volume 8.2 fL (7.4-10.4); Platelet Count 200 10x3/uL (130-400); RBC Distribution Width 10.5 % (11.5-14.5); Red Blood Cell (RBC) Count 2.85 mill/uL (4.70-6.10); White Blood Cell (WBC) Count 19.3 10x3/uL (4.8-10.8)
[2022-05-18 05:52] LABS: ALT (SGPT) 19 U/L (8-55); AST (SGOT) 25 U/L (5-34); Albumin 3.7 g/dL (3.4-4.8); Alkaline Phosphatase 58 U/L (40-110); Anion Gap 15 mmol/L (10-20); BUN (Urea Nitrogen) 63 mg/dL (8.4-25.7); Bilirubin, Total 1.2 mg/dL (0.2-1.2); Calc. Creatinine Clearance 18 mL/min (70-130); Calcium 7.7 mg/dL (7.8-10.44); Carbon Dioxide 23 mmol/L (23-31); Chloride 103 mmol/L (98-107); Estimated GFR 17; Globulin 3.3 g/dL (2.4-3.5); Glucose 142 mg/dL (83-110); Potassium 3.4 mmol/L (3.5-5.1); Sodium 138 mmol/L (136-145)
[2022-05-18] MEDS ORDERED: Potassium Bicarbonate/Cit Ac 20 MEQ TAB PO SCH (08:00)
[2022-05-18] MEDS: Rifaximin 550 MG TAB PO SCH ×3 (09:07→20:21)
[2022-05-18] MEDS: Multivitamin W/ Minerals 1 TAB PO SCH (09:07)
[2022-05-18] MEDS: Enoxaparin Sodium 80 MG/0.8 ML SYRINGE SC SCH (09:07)
[2022-05-18] MEDS: Calcium Carbonate 600 MG + Vit D TAB PO SCH ×2 (09:08→16:41)
[2022-05-18] MEDS: Montelukast Sodium 10 mg Tablet PO SCH (09:08)
[2022-05-18] MEDS: Lidocaine 5% Patch TD SCH (09:09)
[2022-05-18] MEDS: Nicotine 21 MG PATCH TD SCH (09:09)
[2022-05-18] MEDS: Fluticasone Propionate Nasal Spray 16 gm Bottle NASAL SCH (09:09)
[2022-05-18] MEDS: Sodium Chloride 0.9% 1,000 ML IV SCH ×2 (09:10→22:25)
[2022-05-18] MEDS: Acetaminophen 325 MG TAB PO PRN (11:22)
[2022-05-18] MEDS: HumaLOG 300 UNITS/3 ML VIAL SC PRN (16:04)
[2022-05-18] MEDS: Lorazepam 2 MG/ML VIAL SLOW IVP PRN (20:22)
[2022-05-18] MEDS: Transdermal Patch Removal TOP SCH (21:30)
[2022-05-19 05:00] LABS: ALT (SGPT) 21 U/L (8-55); AST (SGOT) 27 U/L (5-34); Albumin 3.7 g/dL (3.4-4.8); Alkaline Phosphatase 73 U/L (40-110); Anion Gap 21 mmol/L (10-20); BUN (Urea Nitrogen) 75 mg/dL (8.4-25.7); Bilirubin, Total 0.8 mg/dL (0.2-1.2); Calc. Creatinine Clearance 16 mL/min (70-130); Calcium 8.2 mg/dL (7.8-10.44); Carbon Dioxide 21 mmol/L (23-31); Chloride 101 mmol/L (98-107); Estimated GFR 15; Globulin 3.8 g/dL (2.4-3.5); Glucose 146 mg/dL (83-110); Potassium 4.2 mmol/L (3.5-5.1); Protein, Total 7.5 g/dL (5.8-8.1); Sodium 139 mmol/L (136-145)
[2022-05-19 05:16] LABS: Band 1 % (5-11); Hemoglobin 9.7 g/dL (14.0-18.0); Lymphocytes 6 % (21-51); MDiff Complete? YES; Macrocytosis SLIGHT = 6-15 cells (100X) (0-5/hpf); Mean Corpuscular HGB CONC 32.8 g/dL (32.0-36.0); Mean Corpuscular Hemoglobin 33.6 pg (27.0-31.0); Monocytes 2 % (0-10); Neutrophil 91 % (42-75); Ovalocytes SLIGHT = 2-5 cells (100X) (0-1/hpf); Platelet Count 271 10x3/uL (130-400); Platelet Morphology Comment Appears Adequate; RBC Distribution Width 10.6 % (11.5-14.5); White Blood Cell (WBC) Count 22.3 10x3/uL (4.8-10.8)
[2022-05-19] MEDS: Enoxaparin Sodium 80 MG/0.8 ML SYRINGE SC SCH (08:26)
[2022-05-19] MEDS: Nicotine 21 MG PATCH TD SCH (08:27)
[2022-05-19] MEDS: Fluticasone Propionate Nasal Spray 16 gm Bottle NASAL SCH (08:27)
[2022-05-19] MEDS: Calcium Carbonate 600 MG + Vit D TAB PO SCH ×2 (08:28→16:55)
[2022-05-19] MEDS: Multivitamin W/ Minerals 1 TAB PO SCH (08:29)
[2022-05-19] MEDS: Montelukast Sodium 10 mg Tablet PO SCH (08:29)
[2022-05-19] MEDS: Rifaximin 550 MG TAB PO SCH ×3 (08:29→21:00)
[2022-05-19] MEDS: Lidocaine 5% Patch TD SCH (08:45)
[2022-05-19] MEDS ORDERED: Dexamethasone 10 MG/ML VIAL SLOW IVP SCH (09:00)
[2022-05-19] MEDS ORDERED: Sodium Chloride 0.9% 1,000 ML IV SCH (09:28)
[2022-05-19] MEDS ORDERED: Lactated Ringer's 500 ML IV SCH (09:30)
[2022-05-19] MEDS ORDERED: Sodium Bicarb 50 MEQ/50 ML VIAL ONE (11:37)
[2022-05-19] MEDS ORDERED: Sodium Bicarb 50 MEQ/50 ML VIAL IVP SCH (12:00)
[2022-05-19 12:02] LABS: #Lymphocytes 0.5 thou/uL (1.20-3.40); #Neutrophils 20.2 thou/uL (1.40-6.50); %Basophils 0.1 % (0.0-1.0); %Eosinophils 0.1 % (0.0-10.0); %Lymphocytes 2.3 % (21.0-51.0); %Monocytes 4.4 % (0.0-10.0); %Neutrophils 93.2 % (42.0-75.0); Hemoglobin 10.2 g/dL (14.0-18.0); Mean Corpuscular HGB CONC 34.4 g/dL (32.0-36.0); Mean Corpuscular Hemoglobin 35.6 pg (27.0-31.0); Mean Platelet Volume 7.6 fL (7.4-10.4); Platelet Count 292 10x3/uL (130-400); RBC Distribution Width 10.5 % (11.5-14.5); Red Blood Cell (RBC) Count 2.87 mill/uL (4.70-6.10); White Blood Cell (WBC) Count 21.7 10x3/uL (4.8-10.8)
[2022-05-19 12:10] LABS: Lactic Acid 1.6 mmol/L (0.5-2.2)
[2022-05-19 12:15] LABS: ALT (SGPT) 22 U/L (8-55); AST (SGOT) 29 U/L (5-34); Albumin 3.7 g/dL (3.4-4.8); Alkaline Phosphatase 75 U/L (40-110); Anion Gap 20 mmol/L (10-20); BUN (Urea Nitrogen) 82 mg/dL (8.4-25.7); Bilirubin, Total 0.7 mg/dL (0.2-1.2); Calc. Creatinine Clearance 16 mL/min (70-130); Carbon Dioxide 21 mmol/L (23-31); Chloride 100 mmol/L (98-107); Estimated GFR 14; Globulin 3.9 g/dL (2.4-3.5); Glucose 177 mg/dL (83-110); Potassium 4.2 mmol/L (3.5-5.1); Protein, Total 7.6 g/dL (5.8-8.1); Sodium 137 mmol/L (136-145)
[2022-05-19] MEDS ORDERED: Rocuronium Bromide 10 MG/ML (10ML VIAL) ONE (13:07)
[2022-05-19] MEDS ORDERED: Propofol 1,000 MG/100 ML VIAL IV ONE ×2 (13:20→19:48)
[2022-05-19] MEDS ORDERED: NOREPINEPHRINE 8 MG/250 ML-D5W 250 ML ONE (13:21)
[2022-05-19] MEDS ORDERED: FENTANYL 50 MCG/ML 1 ML VIAL SLOW IVP SCH (13:30)
[2022-05-19] MEDS ORDERED: Meropenem 1 GM in Sodium Chloride 0.9% 100 ML IVPB SCH ×2 (13:45→14:00)
[2022-05-19] MEDS ORDERED: NOREPINEPHRINE 8 MG/250 ML-D5W 250 ML IVPB SCH (13:45)
[2022-05-19] MEDS ORDERED: Rocuronium Bromide 50 MG/5 ML VIAL IVP SCH (13:45)
[2022-05-19 13:47] LABS: Actual Bicarbonate (HCO3a) 20.9 mEq/L (22-28); Base Excess (BEa) -5.5 mEq/L (-2.0 to +3.0); CO2 Tension 44.6 mmHg (35.0-45.0); Carboxyhemoglobin (COHb) 0.3 gm% (0.0-3.0); Hemoglobin (Hb) 10.7 g/dL (14.0-18.0); O2 Tension (PaO2), arterial 97.5 mmHg (> 60.0); Potassium - ABG Lab 4.22 mmol/L (3.70-5.30); pH, Arterial 7.29 (7.35-7.45)
[2022-05-19 13:48] LABS: Puncture Site LRA
[2022-05-19] MEDS: Lactated Ringer's 1,000 ML IV SCH ×2 (13:54→21:00)
[2022-05-19 14:04] LABS: Base Excess (BEa) -3.1 mEq/L (-2.0 to +3.0); Calcium, Ionized (arterial) 0.94 mmol/L (1.12-1.30); Carboxyhemoglobin (COHb) 0.3 gm% (0.0-3.0); Potassium - ABG Lab 3.92 mmol/L (3.70-5.30); pH, Arterial 7.41 (7.35-7.45)
[2022-05-19 14:06] LABS: Puncture Site LRA
[2022-05-19] MEDS ORDERED: Midazolam HCl 2 mg/2 ml Vial SLOW IVP PRN (19:51)
[2022-05-19] MEDS ORDERED: Morphine 4 MG/ML VIAL SLOW IVP PRN (20:00)
[2022-05-19] MEDS ORDERED: DISCONTINUE PREVIOUS NARCOTIC PAIN MEDICATIONS AND BENZODIAZEPINES FS SCH (20:00)
[2022-05-19] MEDS ORDERED: Fentanyl BOLUS 250 ML IVPB PRN (20:00)
[2022-05-19] MEDS ORDERED: Fentanyl CADD 100 ML IV SCH (20:00)
[2022-05-19] MEDS ORDERED: Propofol BOLUS 1,000 MG/100 ML VIAL IV PRN (20:00)
[2022-05-19] MEDS: Heparin 5,000 UNITS/ML VIAL SC SCH (20:59)
[2022-05-19] MEDS: Transdermal Patch Removal TOP SCH (21:01)
[2022-05-19] MEDS: Propofol 1,000 MG/100 ML VIAL IV PRN (21:11)
[2022-05-19] MEDS: Meropenem 500 MG in Sodium Chloride 0.9% 100 ML IVPB SCH (21:48)
[2022-05-20] MEDS: Propofol 1,000 MG/100 ML VIAL IV PRN ×3 (04:25→19:05)
[2022-05-20 07:12] LABS: #Lymphocytes 0.6 thou/uL (1.20-3.40); #Monocytes 1.3 thou/uL (0.11-0.59); #Neutrophils 11.6 thou/uL (1.40-6.50); %Basophils 0.2 % (0.0-1.0); %Eosinophils 0.1 % (0.0-10.0); %Lymphocytes 4.7 % (21.0-51.0); %Monocytes 9.4 % (0.0-10.0); %Neutrophils 85.6 % (42.0-75.0); Hemoglobin 8.2 g/dL (14.0-18.0); Mean Corpuscular HGB CONC 33.9 g/dL (32.0-36.0); Mean Corpuscular Hemoglobin 35.2 pg (27.0-31.0); Mean Platelet Volume 7.6 fL (7.4-10.4); Platelet Count 281 10x3/uL (130-400); RBC Distribution Width 10.4 % (11.5-14.5); Red Blood Cell (RBC) Count 2.33 mill/uL (4.70-6.10); White Blood Cell (WBC) Count 13.5 10x3/uL (4.8-10.8)
[2022-05-20 07:54] LABS: #Lymphocytes 0.7 thou/uL (1.20-3.40); #Monocytes 1.3 thou/uL (0.11-0.59); #Neutrophils 11.6 thou/uL (1.40-6.50); %Basophils 0.1 % (0.0-1.0); %Eosinophils 0.1 % (0.0-10.0); %Lymphocytes 5.3 % (21.0-51.0); %Monocytes 9.7 % (0.0-10.0); %Neutrophils 84.9 % (42.0-75.0); Hemoglobin 8.4 g/dL (14.0-18.0); Mean Corpuscular HGB CONC 33.9 g/dL (32.0-36.0); Mean Platelet Volume 7.3 fL (7.4-10.4); Platelet Count 282 10x3/uL (130-400); RBC Distribution Width 10.5 % (11.5-14.5); White Blood Cell (WBC) Count 13.6 10x3/uL (4.8-10.8)
[2022-05-20 08:19] LABS: ALT (SGPT) 17 U/L (8-55); AST (SGOT) 21 U/L (5-34); Albumin 3.1 g/dL (3.4-4.8); Alkaline Phosphatase 73 U/L (40-110); Anion Gap 15 mmol/L (10-20); BUN (Urea Nitrogen) 71 mg/dL (8.4-25.7); Bilirubin, Total 0.5 mg/dL (0.2-1.2); Calc. Creatinine Clearance 22 mL/min (70-130); Calcium 7.8 mg/dL (7.8-10.44); Carbon Dioxide 23 mmol/L (23-31); Chloride 102 mmol/L (98-107); Estimated GFR 22; Globulin 3.1 g/dL (2.4-3.5); Glucose 167 mg/dL (83-110); Potassium 3.3 mmol/L (3.5-5.1); Protein, Total 6.2 g/dL (5.8-8.1); Sodium 137 mmol/L (136-145)
[2022-05-20] MEDS: Lactated Ringer's 1,000 ML IV SCH ×2 (08:30→16:55)
[2022-05-20] MEDS: Fluticasone Propionate Nasal Spray 16 gm Bottle NASAL SCH (09:31)
[2022-05-20] MEDS: Nicotine 21 MG PATCH TD SCH (09:45)
[2022-05-20] MEDS: Meropenem 500 MG in Sodium Chloride 0.9% 100 ML IVPB SCH ×2 (09:45→21:22)
[2022-05-20] MEDS: Heparin 5,000 UNITS/ML VIAL SC SCH ×2 (09:45→21:23)
[2022-05-20] MEDS: Lidocaine 5% Patch TD SCH (09:45)
[2022-05-20] MEDS: Multivitamin W/ Minerals 1 TAB PO SCH (09:47)
[2022-05-20] MEDS: Calcium Carbonate 600 MG + Vit D TAB PO SCH ×2 (09:47→16:54)
[2022-05-20] MEDS: Acetaminophen 325 MG TAB PO PRN (09:47)
[2022-05-20] MEDS: Montelukast Sodium 10 mg Tablet PO SCH (09:47)
[2022-05-20] MEDS: Rifaximin 550 MG TAB PO SCH ×3 (09:47→21:23)
[2022-05-20 10:28] LABS: Magnesium 1.7 mg/dL (1.6-2.6)
[2022-05-20] MEDS: Potassium Chloride 20 MEQ in Premix Bag 1 BAG IVPB SCH ×2 (11:12→14:02)
[2022-05-20] MEDS ORDERED: Cosyntropin 250 MCG VIAL SLOW IVP SCH (17:45)
[2022-05-20] MEDS: Transdermal Patch Removal TOP SCH (21:24)
[2022-05-21] MEDS: Propofol 1,000 MG/100 ML VIAL IV PRN ×4 (01:20→21:10)
[2022-05-21] MEDS: Lactated Ringer's 1,000 ML IV SCH (04:21)
[2022-05-21 04:26] LABS: #Monocytes 1.1 thou/uL (0.11-0.59); #Neutrophils 8.2 thou/uL (1.40-6.50); %Basophils 0.1 % (0.0-1.0); %Eosinophils 0.3 % (0.0-10.0); %Lymphocytes 9.3 % (21.0-51.0); %Monocytes 10.8 % (0.0-10.0); %Neutrophils 79.5 % (42.0-75.0); Hemoglobin 7.9 g/dL (14.0-18.0); Mean Corpuscular HGB CONC 33.2 g/dL (32.0-36.0); Mean Corpuscular Hemoglobin 34.4 pg (27.0-31.0); Mean Platelet Volume 7.1 fL (7.4-10.4); Platelet Count 259 10x3/uL (130-400); RBC Distribution Width 10.5 % (11.5-14.5); Red Blood Cell (RBC) Count 2.29 mill/uL (4.70-6.10); White Blood Cell (WBC) Count 10.3 10x3/uL (4.8-10.8)
[2022-05-21 04:55] LABS: ALT (SGPT) 25 U/L (8-55); AST (SGOT) 31 U/L (5-34); Alkaline Phosphatase 154 U/L (40-110); Anion Gap 13 mmol/L (10-20); BUN (Urea Nitrogen) 65 mg/dL (8.4-25.7); Bilirubin, Total 0.7 mg/dL (0.2-1.2); Calc. Creatinine Clearance 28 mL/min (70-130); Calcium 8.1 mg/dL (7.8-10.44); Carbon Dioxide 28 mmol/L (23-31); Chloride 104 mmol/L (98-107); Estimated GFR 30; Globulin 2.9 g/dL (2.4-3.5); Glucose 101 mg/dL (83-110); Magnesium 1.6 mg/dL (1.6-2.6); Phosphorus 3.2 mg/dL (2.3-4.7); Potassium 3.7 mmol/L (3.5-5.1); Protein, Total 5.9 g/dL (5.8-8.1); Sodium 141 mmol/L (136-145)
[2022-05-21] MEDS: Montelukast Sodium 10 mg Tablet PO SCH (08:20)
[2022-05-21] MEDS: Calcium Carbonate 600 MG + Vit D TAB PO SCH ×2 (08:20→15:07)
[2022-05-21] MEDS: Multivitamin W/ Minerals 1 TAB PO SCH (08:20)
[2022-05-21] MEDS: Rifaximin 550 MG TAB PO SCH ×3 (08:20→21:11)
[2022-05-21] MEDS: Lidocaine 5% Patch TD SCH (08:20)
[2022-05-21] MEDS: Fluticasone Propionate Nasal Spray 16 gm Bottle NASAL SCH (08:21)
[2022-05-21] MEDS: Nicotine 21 MG PATCH TD SCH (08:21)
[2022-05-21] MEDS: Heparin 5,000 UNITS/ML VIAL SC SCH ×2 (08:21→21:11)
[2022-05-21] MEDS ORDERED: Magnesium 2 GM/50 ML(in water) 2 GM in Premix Bag 1 BAG IVPB SCH (08:30)
[2022-05-21] MEDS ORDERED: FOLIC ACID SC SCH (09:00)
[2022-05-21] MEDS: Pantoprazole 40 MG VIAL IVP SCH (09:20)
[2022-05-21] MEDS: Dextrose 5%-Lactated Ringers 1,000 ML IV SCH ×3 (09:23→21:10)
[2022-05-21] MEDS: Cyanocobalamin 1000 MCG/ML VIAL IM SCH (09:24)
[2022-05-21] MEDS: Meropenem 500 MG in Sodium Chloride 0.9% 100 ML IVPB SCH ×2 (10:00→21:55)
[2022-05-21] MEDS: Transdermal Patch Removal TOP SCH (21:30)
[2022-05-22 04:16] LABS: #Eosinphils 0.1 thou/uL (0.0-0.7); #Lymphocytes 0.8 thou/uL (1.20-3.40); #Neutrophils 6.4 thou/uL (1.40-6.50); %Basophils 0.5 % (0.0-1.0); %Eosinophils 1.1 % (0.0-10.0); %Lymphocytes 9.4 % (21.0-51.0); %Monocytes 12.1 % (0.0-10.0); %Neutrophils 76.9 % (42.0-75.0); Hemoglobin 7.9 g/dL (14.0-18.0); Mean Corpuscular HGB CONC 33.3 g/dL (32.0-36.0); Mean Corpuscular Hemoglobin 34.8 pg (27.0-31.0); Mean Platelet Volume 7.1 fL (7.4-10.4); Platelet Count 274 10x3/uL (130-400); RBC Distribution Width 10.3 % (11.5-14.5); Red Blood Cell (RBC) Count 2.27 mill/uL (4.70-6.10); White Blood Cell (WBC) Count 8.4 10x3/uL (4.8-10.8)
[2022-05-22 04:37] LABS: Magnesium 1.8 mg/dL (1.6-2.6)
[2022-05-22] MEDS: Propofol 1,000 MG/100 ML VIAL IV PRN (04:45)
[2022-05-22 08:17] LABS: ALT (SGPT) 52 U/L (8-55); AST (SGOT) 59 U/L (5-34); Albumin 2.9 g/dL (3.4-4.8); Alkaline Phosphatase 204 U/L (40-110); Anion Gap 15 mmol/L (10-20); BUN (Urea Nitrogen) 49 mg/dL (8.4-25.7); Bilirubin, Total 1.1 mg/dL (0.2-1.2); Calc. Creatinine Clearance 33 mL/min (70-130); Calcium 8.7 mg/dL (7.8-10.44); Carbon Dioxide 28 mmol/L (23-31); Chloride 105 mmol/L (98-107); Estimated GFR 36; Globulin 2.8 g/dL (2.4-3.5); Glucose 135 mg/dL (83-110); Potassium 3.6 mmol/L (3.5-5.1); Protein, Total 5.7 g/dL (5.8-8.1); Sodium 144 mmol/L (136-145)
[2022-05-22] MEDS: Dextrose 5%-Lactated Ringers 1,000 ML IV SCH ×2 (08:41→17:22)
[2022-05-22] MEDS: Nicotine 21 MG PATCH TD SCH (08:41)
[2022-05-22] MEDS: Lidocaine 5% Patch TD SCH (08:41)
[2022-05-22] MEDS: Calcium Carbonate 600 MG + Vit D TAB PO SCH ×2 (08:42→16:01)
[2022-05-22] MEDS: Rifaximin 550 MG TAB PO SCH ×3 (08:42→21:02)
[2022-05-22] MEDS: Multivitamin W/ Minerals 1 TAB PO SCH (08:42)
[2022-05-22] MEDS: Acetaminophen 325 MG TAB PO PRN (08:42)
[2022-05-22] MEDS: Pantoprazole 40 MG VIAL IVP SCH (08:42)
[2022-05-22] MEDS: Heparin 5,000 UNITS/ML VIAL SC SCH ×2 (08:43→21:02)
[2022-05-22] MEDS: Meropenem 500 MG in Sodium Chloride 0.9% 100 ML IVPB SCH ×2 (10:15→21:02)
[2022-05-22] MEDS ORDERED: Atropine Sulfate 1 mg/10 ml Syringe ONE (10:38)
[2022-05-22] MEDS ORDERED: Albumin 25% 25 GM/100 ML BOT IVPB SCH (13:30)
[2022-05-22] MEDS: Fat Emulsion 250 ML, Multivitamins, Adult 10 ML, TRACE ELEMENT CONCENTRATE 1 ML in D15W... IV SCH (14:12)
[2022-05-22] MEDS: HumaLOG 300 UNITS/3 ML VIAL SC PRN (16:00)
[2022-05-22] MEDS: Lorazepam 2 MG/ML VIAL SLOW IVP PRN (17:21)
[2022-05-22] MEDS ORDERED: Atropine Sulfate 1 mg/10 ml Syringe IVP PRN (20:51)
[2022-05-22] MEDS: Transdermal Patch Removal TOP SCH (23:42)
[2022-05-23 04:56] LABS: #Eosinphils 0.1 thou/uL (0.0-0.7); #Lymphocytes 0.8 thou/uL (1.20-3.40); #Neutrophils 7.9 thou/uL (1.40-6.50); %Eosinophils 0.7 % (0.0-10.0); %Lymphocytes 7.9 % (21.0-51.0); %Neutrophils 81.4 % (42.0-75.0); Hemoglobin 7.6 g/dL (14.0-18.0); Mean Corpuscular HGB CONC 32.4 g/dL (32.0-36.0); Mean Corpuscular Hemoglobin 34.4 pg (27.0-31.0); Mean Platelet Volume 7.2 fL (7.4-10.4); Platelet Count 264 10x3/uL (130-400); RBC Distribution Width 10.5 % (11.5-14.5); White Blood Cell (WBC) Count 9.7 10x3/uL (4.8-10.8)
[2022-05-23] MEDS: Dextrose 5%-Lactated Ringers 1,000 ML IV SCH ×2 (05:47→14:17)
[2022-05-23] MEDS: Heparin 5,000 UNITS/ML VIAL SC SCH ×2 (09:23→22:45)
[2022-05-23] MEDS: Nicotine 21 MG PATCH TD SCH (09:24)
[2022-05-23] MEDS: Pantoprazole 40 MG VIAL IVP SCH (09:25)
[2022-05-23] MEDS: Multivitamin W/ Minerals 1 TAB PO SCH (09:25)
[2022-05-23] MEDS: Rifaximin 550 MG TAB PO SCH (09:25)
[2022-05-23] MEDS: Calcium Carbonate 600 MG + Vit D TAB PO SCH (09:25)
[2022-05-23] MEDS: Lidocaine 5% Patch TD SCH (09:38)
[2022-05-23] MEDS: Meropenem 500 MG in Sodium Chloride 0.9% 100 ML IVPB SCH ×2 (09:40→22:44)
[2022-05-23] MEDS ORDERED: methylPREDNISolone Sod Succ/PF 60 MG in Sodium Chloride 0.9% 250 ML 250 ML IVPB STA (10:12)
[2022-05-23 10:33] LABS: Actual Bicarbonate (HCO3a) 30.4 mEq/L (22-28); Base Excess (BEa) 6.6 mEq/L (-2.0 to +3.0); CO2 Tension 40.4 mmHg (35.0-45.0); Carboxyhemoglobin (COHb) 0.4 gm% (0.0-3.0); Hemoglobin (Hb) 8.3 g/dL (14.0-18.0); O2 Tension (PaO2), arterial 130.7 mmHg (> 60.0); Potassium - ABG Lab 3.09 mmol/L (3.70-5.30)
[2022-05-23 10:38] LABS: Puncture Site RBA
[2022-05-23] MEDS ORDERED: methylPREDNISolone Sod Succ 40 MG VIAL IVP SCH (11:45)
[2022-05-23] MEDS: Fat Emulsion 250 ML, Multivitamins, Adult 10 ML, TRACE ELEMENT CONCENTRATE 1 ML in D15W... IV SCH (13:59)
[2022-05-23] MEDS: Transdermal Patch Removal TOP SCH ×2 (23:13→23:35)
[2022-05-24] MEDS: Dextrose 5%-Lactated Ringers 1,000 ML IV SCH (02:27)
[2022-05-24 05:06] LABS: #Eosinphils 0.1 thou/uL (0.0-0.7); #Lymphocytes 0.9 thou/uL (1.20-3.40); #Monocytes 1.1 thou/uL (0.11-0.59); #Neutrophils 8.3 thou/uL (1.40-6.50); %Basophils 0.1 % (0.0-1.0); %Eosinophils 0.5 % (0.0-10.0); %Lymphocytes 8.5 % (21.0-51.0); %Monocytes 10.1 % (0.0-10.0); %Neutrophils 80.7 % (42.0-75.0); Hemoglobin 7.2 g/dL (14.0-18.0); Mean Corpuscular HGB CONC 33.8 g/dL (32.0-36.0); Mean Corpuscular Hemoglobin 35.7 pg (27.0-31.0); Mean Platelet Volume 7.4 fL (7.4-10.4); Platelet Count 291 10x3/uL (130-400); RBC Distribution Width 10.4 % (11.5-14.5); Red Blood Cell (RBC) Count 2.02 mill/uL (4.70-6.10); White Blood Cell (WBC) Count 10.3 10x3/uL (4.8-10.8)
[2022-05-24 05:26] LABS: ALT (SGPT) 64 U/L (8-55); AST (SGOT) 37 U/L (5-34); Albumin 2.8 g/dL (3.4-4.8); Alkaline Phosphatase 164 U/L (40-110); Anion Gap 11 mmol/L (10-20); BUN (Urea Nitrogen) 28 mg/dL (8.4-25.7); Bilirubin, Total 0.5 mg/dL (0.2-1.2); Calc. Creatinine Clearance 52 mL/min (70-130); Calcium 8.3 mg/dL (7.8-10.44); Carbon Dioxide 29 mmol/L (23-31); Chloride 109 mmol/L (98-107); Estimated GFR 63; Globulin 2.5 g/dL (2.4-3.5); Glucose 157 mg/dL (83-110); Potassium 3.4 mmol/L (3.5-5.1); Protein, Total 5.3 g/dL (5.8-8.1); Sodium 146 mmol/L (136-145)
[2022-05-24] MEDS: HumaLOG 300 UNITS/3 ML VIAL SC PRN (06:03)
[2022-05-24] MEDS: Heparin 5,000 UNITS/ML VIAL SC SCH ×2 (09:44→20:34)
[2022-05-24] MEDS: Lidocaine 5% Patch TD SCH (09:45)
[2022-05-24] MEDS: Multivitamin W/ Minerals 1 TAB PO SCH (09:45)
[2022-05-24] MEDS: Nicotine 21 MG PATCH TD SCH (09:46)
[2022-05-24] MEDS: Meropenem 500 MG in Sodium Chloride 0.9% 100 ML IVPB SCH ×2 (09:46→23:20)
[2022-05-24] MEDS: Pantoprazole 40 MG VIAL IVP SCH (09:46)
[2022-05-24] MEDS ORDERED: SODIUM CHLORIDE 0.9% IVPB SCH (11:15)
[2022-05-24] MEDS ORDERED: METHYLPREDNISOLONE SOD SUCC IVPB SCH (11:15)
[2022-05-24] MEDS: methylPREDNISolone Sod Succ 40 MG VIAL IVP SCH ×2 (12:02→23:21)
[2022-05-24] MEDS: Fat Emulsion 250 ML, Multivitamins, Adult 10 ML, TRACE ELEMENT CONCENTRATE 1 ML in D15W... IV SCH (14:33)
[2022-05-24] MEDS: Transdermal Patch Removal TOP SCH (20:37)
[2022-05-24] MEDS ORDERED: diphenhydrAMINE 12.5 MG/5 ML UDCUP PO SCH (23:30)
[2022-05-24] MEDS ORDERED: diphenhydrAMINE 50 MG/ML VIAL IVP SCH (23:30)
[2022-05-25 04:39] LABS: #Eosinphils 0.1 thou/uL (0.0-0.7); #Lymphocytes 0.5 thou/uL (1.20-3.40); #Monocytes 0.4 thou/uL (0.11-0.59); #Neutrophils 7.5 thou/uL (1.40-6.50); %Eosinophils 0.8 % (0.0-10.0); %Lymphocytes 5.5 % (21.0-51.0); %Monocytes 4.7 % (0.0-10.0); Hemoglobin 7.9 g/dL (14.0-18.0); Mean Corpuscular HGB CONC 33.4 g/dL (32.0-36.0); Mean Corpuscular Hemoglobin 35.1 pg (27.0-31.0); Platelet Count 345 10x3/uL (130-400); RBC Distribution Width 10.3 % (11.5-14.5); Red Blood Cell (RBC) Count 2.25 mill/uL (4.70-6.10); White Blood Cell (WBC) Count 8.5 10x3/uL (4.8-10.8)
[2022-05-25 05:04] LABS: ALT (SGPT) 112 U/L (8-55); AST (SGOT) 97 U/L (5-34); Albumin 3.1 g/dL (3.4-4.8); Alkaline Phosphatase 275 U/L (40-110); Anion Gap 14 mmol/L (10-20); BUN (Urea Nitrogen) 29 mg/dL (8.4-25.7); Bilirubin, Total 0.6 mg/dL (0.2-1.2); Calc. Creatinine Clearance 57 mL/min (70-130); Calcium 8.4 mg/dL (7.8-10.44); Carbon Dioxide 28 mmol/L (23-31); Chloride 110 mmol/L (98-107); Estimated GFR 64; Glucose 156 mg/dL (83-110); Potassium 3.8 mmol/L (3.5-5.1); Protein, Total 6.1 g/dL (5.8-8.1); Sodium 148 mmol/L (136-145)
[2022-05-25] MEDS: Heparin 5,000 UNITS/ML VIAL SC SCH ×2 (08:46→20:46)
[2022-05-25] MEDS: Multivitamin W/ Minerals 1 TAB PO SCH (08:46)
[2022-05-25] MEDS: Nicotine 21 MG PATCH TD SCH (08:46)
[2022-05-25] MEDS: Pantoprazole 40 MG VIAL IVP SCH (08:47)
[2022-05-25] MEDS: Meropenem 1 GM in Sodium Chloride 0.9% 100 ML IVPB SCH ×2 (09:54→23:15)
[2022-05-25] MEDS ORDERED: Preparation H Suppository PR PRN (10:30)
[2022-05-25] MEDS: methylPREDNISolone Sod Succ 40 MG VIAL IVP SCH ×2 (11:58→23:15)
[2022-05-25] MEDS: Fat Emulsion 250 ML, Multivitamins, Adult 10 ML, TRACE ELEMENT CONCENTRATE 1 ML in D15W... IV SCH (14:48)
[2022-05-25] MEDS: traZODone HCl 50 MG TAB PO SCH (20:46)
[2022-05-25] MEDS: Transdermal Patch Removal TOP SCH (20:46)
[2022-05-26] MEDS ORDERED: Colchicine 0.6 MG TAB PO SCH (00:45)
[2022-05-26 06:19] LABS: #Lymphocytes 0.5 thou/uL (1.20-3.40); #Monocytes 0.4 thou/uL (0.11-0.59); #Neutrophils 6.2 thou/uL (1.40-6.50); %Eosinophils 0.4 % (0.0-10.0); %Lymphocytes 6.3 % (21.0-51.0); %Monocytes 5.6 % (0.0-10.0); %Neutrophils 87.7 % (42.0-75.0); Hemoglobin 7.7 g/dL (14.0-18.0); Mean Corpuscular HGB CONC 32.5 g/dL (32.0-36.0); Mean Corpuscular Hemoglobin 34.3 pg (27.0-31.0); Mean Platelet Volume 7.2 fL (7.4-10.4); Platelet Count 377 10x3/uL (130-400); RBC Distribution Width 10.4 % (11.5-14.5); Red Blood Cell (RBC) Count 2.23 mill/uL (4.70-6.10); White Blood Cell (WBC) Count 7.1 10x3/uL (4.8-10.8)
[2022-05-26 06:39] LABS: Phosphorus 3.5 mg/dL (2.3-4.7)
[2022-05-26 06:45] LABS: ALT (SGPT) 82 U/L (8-55); AST (SGOT) 36 U/L (5-34); Albumin 3.1 g/dL (3.4-4.8); Alkaline Phosphatase 223 U/L (40-110); Anion Gap 16 mmol/L (10-20); BUN (Urea Nitrogen) 32 mg/dL (8.4-25.7); Bilirubin, Total 0.5 mg/dL (0.2-1.2); Calc. Creatinine Clearance 65 mL/min (70-130); Calcium 7.8 mg/dL (7.8-10.44); Carbon Dioxide 27 mmol/L (23-31); Chloride 110 mmol/L (98-107); Estimated GFR 73; Globulin 2.4 g/dL (2.4-3.5); Glucose 167 mg/dL (83-110); Magnesium 1.3 mg/dL (1.6-2.6); Potassium 4.2 mmol/L (3.5-5.1); Protein, Total 5.5 g/dL (5.8-8.1); Sodium 148 mmol/L (136-145)
[2022-05-26] MEDS ORDERED: Electrolyte Replacement Protocol 1 EACH FS SCH (08:45)
[2022-05-26] MEDS: Pantoprazole 40 MG VIAL IVP SCH (09:37)
[2022-05-26] MEDS: Multivitamin W/ Minerals 1 TAB PO SCH (09:37)
[2022-05-26] MEDS: Colchicine 0.6 MG TAB PO SCH ×2 (09:37→21:23)
[2022-05-26] MEDS: Heparin 5,000 UNITS/ML VIAL SC SCH ×2 (09:37→21:25)
[2022-05-26] MEDS: Nicotine 21 MG PATCH TD SCH (09:38)
[2022-05-26] MEDS: Meropenem 1 GM in Sodium Chloride 0.9% 100 ML IVPB SCH ×3 (09:42→23:32)
[2022-05-26] MEDS: Magnesium 2 GM/50 ML(in water) 2 GM in Premix Bag 1 BAG IVPB SCH ×3 (10:17→15:11)
[2022-05-26] MEDS: methylPREDNISolone Sod Succ 40 MG VIAL IVP SCH ×2 (12:44→23:32)
[2022-05-26] MEDS: Fat Emulsion 250 ML, Multivitamins, Adult 10 ML, TRACE ELEMENT CONCENTRATE 1 ML in D15W... IV SCH (14:10)
[2022-05-26] MEDS ORDERED: Nicotine 14 MG PATCH TD PRN (15:59)
[2022-05-26] MEDS ORDERED: Lorazepam 2 MG/ML VIAL SLOW IVP PRN (16:14)
[2022-05-26] MEDS ORDERED: Melatonin 3 MG TAB PO PRN (16:14)
[2022-05-26] MEDS: traZODone HCl 50 MG TAB PO SCH (21:24)
[2022-05-26] MEDS: Transdermal Patch Removal TOP SCH (21:25)
[2022-05-27 04:29] LABS: #Lymphocytes 0.5 thou/uL (1.20-3.40); #Monocytes 0.5 thou/uL (0.11-0.59); #Neutrophils 7.5 thou/uL (1.40-6.50); %Eosinophils 0.5 % (0.0-10.0); %Monocytes 5.8 % (0.0-10.0); %Neutrophils 87.7 % (42.0-75.0); Hemoglobin 8.3 g/dL (14.0-18.0); Mean Corpuscular HGB CONC 33.4 g/dL (32.0-36.0); Mean Corpuscular Hemoglobin 35.1 pg (27.0-31.0); Mean Platelet Volume 7.3 fL (7.4-10.4); Platelet Count 408 10x3/uL (130-400); RBC Distribution Width 10.4 % (11.5-14.5); Red Blood Cell (RBC) Count 2.37 mill/uL (4.70-6.10); White Blood Cell (WBC) Count 8.6 10x3/uL (4.8-10.8)
[2022-05-27 04:55] LABS: ALT (SGPT) 100 U/L (8-55); AST (SGOT) 42 U/L (5-34); Albumin 3.2 g/dL (3.4-4.8); Alkaline Phosphatase 218 U/L (40-110); Anion Gap 13 mmol/L (10-20); BUN (Urea Nitrogen) 33 mg/dL (8.4-25.7); Bilirubin, Total 0.5 mg/dL (0.2-1.2); Calc. Creatinine Clearance 64 mL/min (70-130); Calcium 8.1 mg/dL (7.8-10.44); Carbon Dioxide 28 mmol/L (23-31); Chloride 110 mmol/L (98-107); Estimated GFR 71; Globulin 2.7 g/dL (2.4-3.5); Glucose 158 mg/dL (83-110); Magnesium 2.1 mg/dL (1.6-2.6); Potassium 3.9 mmol/L (3.5-5.1); Protein, Total 5.9 g/dL (5.8-8.1); Sodium 147 mmol/L (136-145)
[2022-05-27 08:01] LABS: Phosphorus 3.1 mg/dL (2.3-4.7)
[2022-05-27] MEDS ORDERED: Thiamine HCl 200 MG/2 ML VIAL SLOW IVP SCH (09:00)
[2022-05-27] MEDS: Meropenem 1 GM in Sodium Chloride 0.9% 100 ML IVPB SCH ×2 (09:28→15:34)
[2022-05-27] MEDS: Colchicine 0.6 MG TAB PO SCH ×2 (09:28→20:51)
[2022-05-27] MEDS: Multivitamin W/ Minerals 1 TAB PO SCH (09:28)
[2022-05-27] MEDS: Heparin 5,000 UNITS/ML VIAL SC SCH ×2 (09:28→20:51)
[2022-05-27] MEDS: Pantoprazole 40 MG VIAL IVP SCH ×2 (09:28→20:51)
[2022-05-27] MEDS: Thiamine 100 MG TAB PO SCH (09:28)
[2022-05-27] MEDS: methylPREDNISolone Sod Succ 40 MG VIAL IVP SCH (12:34)
[2022-05-27] MEDS: Fat Emulsion 250 ML, Multivitamins, Adult 10 ML, TRACE ELEMENT CONCENTRATE 1 ML in D15W... IV SCH (15:34)
[2022-05-27] MEDS ORDERED: Labetalol HCl 100 MG/20 ML VIAL SLOW IVP PRN (16:04)
[2022-05-27] MEDS: traZODone HCl 50 MG TAB PO SCH (20:50)
[2022-05-27] MEDS: Nystatin Powder 15 GM BOT TOP SCH (21:00)
[2022-05-27] MEDS: Transdermal Patch Removal TOP SCH (21:00)
[2022-05-28] MEDS: Meropenem 1 GM in Sodium Chloride 0.9% 100 ML IVPB SCH ×3 (00:36→15:39)
[2022-05-28] MEDS: methylPREDNISolone Sod Succ 40 MG VIAL IVP SCH ×2 (00:37→12:50)
[2022-05-28 04:55] LABS: #Eosinphils 0.1 thou/uL (0.0-0.7); #Lymphocytes 0.7 thou/uL (1.20-3.40); #Monocytes 0.6 thou/uL (0.11-0.59); #Neutrophils 10.6 thou/uL (1.40-6.50); %Basophils 0.2 % (0.0-1.0); %Eosinophils 0.5 % (0.0-10.0); %Lymphocytes 5.9 % (21.0-51.0); %Monocytes 5.3 % (0.0-10.0); %Neutrophils 88.1 % (42.0-75.0); Hemoglobin 8.6 g/dL (14.0-18.0); Mean Corpuscular HGB CONC 31.8 g/dL (32.0-36.0); Mean Corpuscular Hemoglobin 32.7 pg (27.0-31.0); Mean Platelet Volume 7.3 fL (7.4-10.4); Platelet Count 454 10x3/uL (130-400); RBC Distribution Width 10.5 % (11.5-14.5); Red Blood Cell (RBC) Count 2.61 mill/uL (4.70-6.10)
[2022-05-28 05:16] LABS: ALT (SGPT) 86 U/L (8-55); AST (SGOT) 37 U/L (5-34); Albumin 3.2 g/dL (3.4-4.8); Alkaline Phosphatase 202 U/L (40-110); Anion Gap 14 mmol/L (10-20); BUN (Urea Nitrogen) 30 mg/dL (8.4-25.7); Bilirubin, Total 0.6 mg/dL (0.2-1.2); Calc. Creatinine Clearance 55 mL/min (70-130); Calcium 8.2 mg/dL (7.8-10.44); Carbon Dioxide 25 mmol/L (23-31); Chloride 111 mmol/L (98-107); Estimated GFR 73; Globulin 2.8 g/dL (2.4-3.5); Glucose 150 mg/dL (83-110); Potassium 3.7 mmol/L (3.5-5.1); Sodium 146 mmol/L (136-145)
[2022-05-28] MEDS: Thiamine 100 MG TAB PO SCH (09:49)
[2022-05-28] MEDS: Multivitamin W/ Minerals 1 TAB PO SCH (09:49)
[2022-05-28] MEDS: Pantoprazole 40 MG VIAL IVP SCH ×2 (09:50→21:04)
[2022-05-28] MEDS: Heparin 5,000 UNITS/ML VIAL SC SCH ×2 (09:50→21:05)
[2022-05-28] MEDS: Nystatin Powder 15 GM BOT TOP SCH ×2 (09:50→21:04)
[2022-05-28] MEDS: Cyanocobalamin 1000 MCG/ML VIAL IM SCH (09:51)
[2022-05-28] MEDS: Fat Emulsion 250 ML, Multivitamins, Adult 10 ML, TRACE ELEMENT CONCENTRATE 1 ML in D15W... IV SCH (15:39)
[2022-05-28] MEDS: Melatonin 3 MG TAB PO SCH (21:04)
[2022-05-28] MEDS: Transdermal Patch Removal TOP SCH (22:23)
[2022-05-29 04:39] LABS: #Eosinphils 0.1 thou/uL (0.0-0.7); #Lymphocytes 1.2 thou/uL (1.20-3.40); #Neutrophils 7.3 thou/uL (1.40-6.50); %Basophils 0.3 % (0.0-1.0); %Eosinophils 1.1 % (0.0-10.0); %Lymphocytes 12.1 % (21.0-51.0); %Monocytes 10.7 % (0.0-10.0); %Neutrophils 75.8 % (42.0-75.0); Mean Corpuscular HGB CONC 32.4 g/dL (32.0-36.0); Mean Corpuscular Hemoglobin 33.8 pg (27.0-31.0); Mean Platelet Volume 7.1 fL (7.4-10.4); Platelet Count 413 10x3/uL (130-400); RBC Distribution Width 10.6 % (11.5-14.5); Red Blood Cell (RBC) Count 2.37 mill/uL (4.70-6.10); White Blood Cell (WBC) Count 9.6 10x3/uL (4.8-10.8)
[2022-05-29 04:55] LABS: ALT (SGPT) 67 U/L (8-55); AST (SGOT) 27 U/L (5-34); Albumin 2.9 g/dL (3.4-4.8); Alkaline Phosphatase 165 U/L (40-110); Anion Gap 12 mmol/L (10-20); BUN (Urea Nitrogen) 29 mg/dL (8.4-25.7); Bilirubin, Total 0.4 mg/dL (0.2-1.2); Calc. Creatinine Clearance 58 mL/min (70-130); Carbon Dioxide 25 mmol/L (23-31); Chloride 111 mmol/L (98-107); Estimated GFR 79; Globulin 2.7 g/dL (2.4-3.5); Glucose 128 mg/dL (83-110); Magnesium 1.5 mg/dL (1.6-2.6); Potassium 3.7 mmol/L (3.5-5.1); Protein, Total 5.6 g/dL (5.8-8.1); Sodium 144 mmol/L (136-145)
[2022-05-29] MEDS: Heparin 5,000 UNITS/ML VIAL SC SCH ×2 (08:59→20:37)
[2022-05-29] MEDS: Multivitamin W/ Minerals 1 TAB PO SCH (09:00)
[2022-05-29] MEDS: Thiamine 100 MG TAB PO SCH (09:00)
[2022-05-29] MEDS ORDERED: Magnesium Sulfate In Water 4 GM in Premix Bag 1 BAG IVPB SCH (09:00)
[2022-05-29] MEDS ORDERED: methylPREDNISolone Sod Succ 40 MG VIAL IVP SCH ×2 (09:00)
[2022-05-29] MEDS: Pantoprazole 40 MG VIAL IVP SCH (09:00)
[2022-05-29] MEDS: Nystatin Powder 15 GM BOT TOP SCH ×2 (09:00→20:37)
[2022-05-29] MEDS: Melatonin 3 MG TAB PO SCH (20:37)
[2022-05-29] MEDS: Transdermal Patch Removal TOP SCH (21:09)
[2022-05-30 04:49] LABS: #Eosinphils 0.3 thou/uL (0.0-0.7); #Lymphocytes 1.4 thou/uL (1.20-3.40); #Monocytes 1.1 thou/uL (0.11-0.59); #Neutrophils 6.9 thou/uL (1.40-6.50); %Basophils 0.1 % (0.0-1.0); %Eosinophils 2.8 % (0.0-10.0); %Monocytes 11.7 % (0.0-10.0); %Neutrophils 71.4 % (42.0-75.0); Hemoglobin 8.8 g/dL (14.0-18.0); Mean Corpuscular HGB CONC 32.9 g/dL (32.0-36.0); Mean Corpuscular Hemoglobin 34.3 pg (27.0-31.0); Mean Platelet Volume 7.3 fL (7.4-10.4); Platelet Count 451 10x3/uL (130-400); RBC Distribution Width 10.8 % (11.5-14.5); Red Blood Cell (RBC) Count 2.58 mill/uL (4.70-6.10); White Blood Cell (WBC) Count 9.6 10x3/uL (4.8-10.8)
[2022-05-30 05:01] LABS: Phosphorus 1.9 mg/dL (2.3-4.7); Triglycerides 54 mg/dL (Less than 150)
[2022-05-30 05:06] LABS: ALT (SGPT) 68 U/L (8-55); AST (SGOT) 29 U/L (5-34); Albumin 3.2 g/dL (3.4-4.8); Alkaline Phosphatase 176 U/L (40-110); Anion Gap 11 mmol/L (10-20); BUN (Urea Nitrogen) 22 mg/dL (8.4-25.7); Bilirubin, Total 0.5 mg/dL (0.2-1.2); Calc. Creatinine Clearance 62 mL/min (70-130); Carbon Dioxide 25 mmol/L (23-31); Chloride 110 mmol/L (98-107); Estimated GFR 85; Globulin 2.2 g/dL (2.4-3.5); Glucose 94 mg/dL (83-110); Potassium 4.2 mmol/L (3.5-5.1); Protein, Total 5.4 g/dL (5.8-8.1); Sodium 142 mmol/L (136-145)
[2022-05-30] MEDS ORDERED: Magnesium 2 GM/50 ML(in water) 2 GM in Premix Bag 1 BAG IVPB SCH (08:00)
[2022-05-30] MEDS ORDERED: predniSONE 20 MG TAB PO SCH (08:00)
[2022-05-30] MEDS: Thiamine 100 MG TAB PO SCH (09:37)
[2022-05-30] MEDS: Multivitamin W/ Minerals 1 TAB PO SCH (09:37)
[2022-05-30] MEDS: Heparin 5,000 UNITS/ML VIAL SC SCH (09:39)
[2022-05-30] MEDS: Nystatin Powder 15 GM BOT TOP SCH ×2 (09:44→21:03)
[2022-05-30] MEDS: PHOS-NAK 1 PKT PACK PO SCH ×2 (10:35→13:26)
[2022-05-30 14:39] LABS: Hemoglobin 9.1 g/dL (14.0-18.0); Platelet Count 482 10x3/uL (130-400)
[2022-05-30] MEDS ORDERED: Pantoprazole 40 MG VIAL IVP SCH (21:00)
[2022-05-30] MEDS: Melatonin 3 MG TAB PO SCH (21:03)
[2022-05-30] MEDS: Transdermal Patch Removal TOP SCH (21:07)
[2022-05-31 05:22] LABS: #Eosinphils 0.1 thou/uL (0.0-0.7); #Lymphocytes 1.3 thou/uL (1.20-3.40); #Monocytes 1.3 thou/uL (0.11-0.59); %Basophils 0.2 % (0.0-1.0); %Eosinophils 1.1 % (0.0-10.0); %Lymphocytes 11.9 % (21.0-51.0); %Monocytes 11.8 % (0.0-10.0); Hemoglobin 9.3 g/dL (14.0-18.0); Mean Corpuscular HGB CONC 32.4 g/dL (32.0-36.0); Mean Platelet Volume 7.3 fL (7.4-10.4); Platelet Count 458 10x3/uL (130-400); RBC Distribution Width 11.2 % (11.5-14.5); Red Blood Cell (RBC) Count 2.74 mill/uL (4.70-6.10); White Blood Cell (WBC) Count 10.6 10x3/uL (4.8-10.8)
[2022-05-31 05:28] LABS: Anion Gap 12 mmol/L (10-20); BUN (Urea Nitrogen) 20 mg/dL (8.4-25.7); Calc. Creatinine Clearance 62 mL/min (70-130); Calcium 8.4 mg/dL (7.8-10.44); Carbon Dioxide 23 mmol/L (23-31); Chloride 109 mmol/L (98-107); Estimated GFR 84; Glucose 92 mg/dL (83-110); Magnesium 1.6 mg/dL (1.6-2.6); Phosphorus 2.1 mg/dL (2.3-4.7); Potassium 4.1 mmol/L (3.5-5.1); Sodium 140 mmol/L (136-145)
[2022-05-31] MEDS ORDERED: Magnesium 2 GM/50 ML(in water) 2 GM in Premix Bag 1 BAG IVPB SCH (08:00)
[2022-05-31] MEDS ORDERED: Potassium Phosphate 15 MMOL in Sodium Chloride 0.9% 250 ML 250 ML IVPB SCH (08:00)
[2022-05-31] MEDS ORDERED: predniSONE 20 MG TAB PO SCH (08:00)
[2022-05-31] MEDS: Multivitamin W/ Minerals 1 TAB PO SCH (09:04)
[2022-05-31] MEDS: Thiamine 100 MG TAB PO SCH (09:05)
[2022-05-31] MEDS: Nystatin Powder 15 GM BOT TOP SCH ×2 (09:06→20:25)
[2022-05-31] MEDS: Melatonin 3 MG TAB PO SCH (20:25)
[2022-05-31] MEDS: Heparin 5,000 UNITS/ML VIAL SC SCH (20:25)
[2022-05-31] MEDS: Simethicone Chewable 80 MG TAB PO SCH ×2 (20:25→21:48)
[2022-05-31] MEDS: Transdermal Patch Removal TOP SCH (20:46)
[2022-06-01 07:01] LABS: Anion Gap 12 mmol/L (10-20); BUN (Urea Nitrogen) 15 mg/dL (8.4-25.7); Calc. Creatinine Clearance 57 mL/min (70-130); Calcium 8.4 mg/dL (7.8-10.44); Carbon Dioxide 22 mmol/L (23-31); Chloride 108 mmol/L (98-107); Estimated GFR 78; Glucose 83 mg/dL (83-110); Magnesium 1.5 mg/dL (1.6-2.6); Phosphorus 2.9 mg/dL (2.3-4.7); Potassium 4.1 mmol/L (3.5-5.1); Sodium 138 mmol/L (136-145)
[2022-06-01 07:06] LABS: Band 13 % (5-11); Hemoglobin 8.6 g/dL (14.0-18.0); Hypochromia SLIGHT = 6-15 cells (100X) (0-5/hpf); Lymphocytes 7 % (21-51); MDiff Complete? YES; Mean Corpuscular HGB CONC 31.6 g/dL (32.0-36.0); Mean Corpuscular Hemoglobin 33.1 pg (27.0-31.0); Mean Platelet Volume 7.5 fL (7.4-10.4); Monocytes 3 % (0-10); Neutrophil 73 % (42-75); Platelet Count 397 10x3/uL (130-400); Platelet Morphology Comment Appears Adequate; RBC Distribution Width 11.3 % (11.5-14.5); Reactive Lymphocytes 3 % (0-10); Red Blood Cell (RBC) Count 2.59 mill/uL (4.70-6.10); White Blood Cell (WBC) Count 6.9 10x3/uL (4.8-10.8)
[2022-06-01] MEDS: Simethicone Chewable 80 MG TAB PO SCH ×4 (08:16→21:58)
[2022-06-01] MEDS: Heparin 5,000 UNITS/ML VIAL SC SCH (08:16)
[2022-06-01] MEDS: Multivitamin W/ Minerals 1 TAB PO SCH (08:16)
[2022-06-01] MEDS: Thiamine 100 MG TAB PO SCH (08:16)
[2022-06-01] MEDS: Nystatin Powder 15 GM BOT TOP SCH ×2 (08:18→21:58)
[2022-06-01] MEDS: Acetaminophen 325 MG TAB PO PRN ×2 (11:40→19:50)
[2022-06-01] MEDS ORDERED: Magnesium 2 GM/50 ML(in water) 2 GM in Premix Bag 1 BAG IVPB SCH (12:00)
[2022-06-01 13:29] VITALS: BMI 23.8
[2022-06-01] MEDS: Enoxaparin Sodium 60 MG/0.6 ML SYRINGE SC SCH (19:43)
[2022-06-01] MEDS: Melatonin 3 MG TAB PO SCH (19:45)
[2022-06-01 20:41] LABS: Bacteria/HPF None Seen HPF (None Seen); Bilirubin Negative (Negative); Blood, Urine Trace (Negative); CAUTI Indications for Culture Fever or rigors; Clarity Clear (Clear); Glucose, Urine (Dipstick) 300 mg/dL (Negative); Ketone, Urine Negative (Negative); Leukocyte Negative Leu/uL (Negative); Nitrite Negative (Negative); Protein, Urine (Dipstick) 30 mg/dL (Neg-Trace); RBC/HPF 0-3 HPF (0-3); Squamous Epithelial None Seen HPF (0-3); Urobilinogen Normal mg/dL (Less than 2); WBC/HPF 0-3 HPF (0-3); pH, Urine 5.5 (5.0-9.0)
[2022-06-01 20:43] LABS: Urine Culture Reflex No No
[2022-06-01] MEDS: Transdermal Patch Removal TOP SCH (21:59)
[2022-06-01] MEDS ORDERED: Benzonatate 100 MG CAP PO PRN (23:29)
[2022-06-02] MEDS: Albuterol 200 PUFF (6.7GM INHALER) INH PRN ×2 (01:04→05:27)
[2022-06-02 06:52] LABS: Hemoglobin 9.2 g/dL (14.0-18.0); Mean Corpuscular HGB CONC 31.8 g/dL (32.0-36.0); Mean Corpuscular Hemoglobin 33.7 pg (27.0-31.0); Mean Platelet Volume 7.5 fL (7.4-10.4); Platelet Count 343 10x3/uL (130-400); RBC Distribution Width 11.6 % (11.5-14.5); Red Blood Cell (RBC) Count 2.74 mill/uL (4.70-6.10); White Blood Cell (WBC) Count 5.7 10x3/uL (4.8-10.8)
[2022-06-02 07:26] LABS: Anion Gap 14 mmol/L (10-20); BUN (Urea Nitrogen) 19 mg/dL (8.4-25.7); Calc. Creatinine Clearance 49 mL/min (70-130); Calcium 8.5 mg/dL (7.8-10.44); Carbon Dioxide 20 mmol/L (23-31); Chloride 109 mmol/L (98-107); Estimated GFR 64; Glucose 98 mg/dL (83-110); Magnesium 1.7 mg/dL (1.6-2.6); Phosphorus 3.6 mg/dL (2.3-4.7); Potassium 4.2 mmol/L (3.5-5.1); Sodium 139 mmol/L (136-145)
[2022-06-02] MEDS: Enoxaparin Sodium 60 MG/0.6 ML SYRINGE SC SCH (08:54)
[2022-06-02] MEDS: Thiamine 100 MG TAB PO SCH (08:54)
[2022-06-02] MEDS: Simethicone Chewable 80 MG TAB PO SCH ×2 (08:54→12:27)
[2022-06-02] MEDS: Multivitamin W/ Minerals 1 TAB PO SCH (08:54)
[2022-06-02] MEDS: Nystatin Powder 15 GM BOT TOP SCH (08:54)
[2022-06-02] MEDS ORDERED: Magnesium 2 GM/50 ML(in water) 2 GM in Premix Bag 1 BAG IVPB SCH (09:30)
[2022-06-02 10:02] LABS: Band 8 % (5-11); Eosinophils 4 % (0-10); Lymphocytes 17 % (21-51); MDiff Complete? YES; Metamyelocyte 1 % (0-0); Monocytes 17 % (0-10); Myelocyte 2 % (0-0); Neutrophil 50 % (42-75); Platelet Morphology Comment Appears Adequate; Polychromasia SLIGHT = 2-3 cells (100X) (0-2/hpf)
[2022-06-02 15:11] VITALS: BP 133/69; TEMP 99
[2022-06-03] MEDS ORDERED: Apixaban 5 MG TAB PO SCH (09:00)
== END 2022-06-02 15:23 | disposition home or self-care (01) | DRG 682 ==
LOC: ERS 01:59 → ERHOLD 05:31 → CCU 22:26 → 2NO 05-24 19:38 → T4-A 05-31 21:22
PROVIDERS: ADMIT Internal Medicine; ATTEND Hospitalist
PROC: 3E033XZ Introduction of Vasopressor into Peripheral Vein, Percutaneous Approach (ICD-10-PCS; principal; 2022-05-17)
PROC: 5A1945Z Respiratory Ventilation, 24-96 Consecutive Hours (ICD-10-PCS; 2022-05-19)
PROC: 0BH18EZ Insertion of Endotracheal Airway into Trachea, Via Natural or Artificial Opening Endoscopic (ICD-10-PCS; 2022-05-19)
PROC: 0D9670Z Drainage of Stomach with Drainage Device, Via Natural or Artificial Opening (ICD-10-PCS; 2022-05-19)
PROC: 02HV33Z Insertion of Infusion Device into Superior Vena Cava, Percutaneous Approach (ICD-10-PCS; 2022-05-19)
DX: N17.9 Acute kidney failure, unspecified (principal); G93.41 Metabolic encephalopathy; R57.1 Hypovolemic shock; U07.1 COVID-19; J96.01 Acute respiratory failure with hypoxia; J96.02 Acute respiratory failure with hypercapnia; J69.0 Pneumonitis due to inhalation of food and vomit; E87.20 Acidosis, unspecified; M62.82 Rhabdomyolysis; F05 Delirium due to known physiological condition; K56.7 Ileus, unspecified; I47.1 Supraventricular tachycardia; E87.0 Hyperosmolality and hypernatremia; K52.9 Noninfective gastroenteritis and colitis, unspecified; E86.0 Dehydration; Z66 Do not resuscitate; E78.00 Pure hypercholesterolemia, unspecified; N18.30 Chronic kidney disease, stage 3 unspecified; I12.9 Hypertensive chronic kidney disease with stage 1 through stage 4 chronic kidney disease, or unspecified chronic kidney disease; Z96.643 Presence of artificial hip joint, bilateral; N40.0 Benign prostatic hyperplasia without lower urinary tract symptoms; I48.0 Paroxysmal atrial fibrillation; E87.6 Hypokalemia; E83.51 Hypocalcemia; E83.42 Hypomagnesemia; I25.10 Atherosclerotic heart disease of native coronary artery without angina pectoris; E11.22 Type 2 diabetes mellitus with diabetic chronic kidney disease; G93.89 Other specified disorders of brain; F17.220 Nicotine dependence, chewing tobacco, uncomplicated; F10.20 Alcohol dependence, uncomplicated; G40.909 Epilepsy, unspecified, not intractable, without status epilepticus; Z95.0 Presence of cardiac pacemaker; Z90.49 Acquired absence of other specified parts of digestive tract; Z91.041 Radiographic dye allergy status; Z79.899 Other long term (current) drug therapy; Z79.01 Long term (current) use of anticoagulants; M10.9 Gout, unspecified
CPT/HCPCS: 36415; 36416; 36600; 70450; 71045; 74018; 74019; 74176; 80048; 80053; 80069; 80307; 81001; 81003; 81015; 82306; 82533; 82550; 82565; 82805; 82941; 83605; 83690; 83735; 83970; 84100; 84132; 84146; 84425; 84443; 84478; 84484; 84586; 85025; 86850; 86900; 86901; 87040; 87071; 87086; 87324; 87449; 87505; 87811; 93005; 93010; 93970; 94002; 94003; 94660; 95705; 95819; 95957; 96374; 96375; C9113; J0610; J1100; J1200; J1644; J1650; J1815; J2060; J2185; J2250; J2704; J2710; J2920; J3010; J3411; J3420; J3475; J3480; J3490; J7042; J7050; J7070; J7120; J7512; P9047; U0002; U0003; U0005

== ENCOUNTER 2023-08-06 07:40 | Emergency (ER) | payer MEDICARE ==
[2023-08-06] MEDS ORDERED: Ipratropium/Albuterol 3 ML NEB ONE ×2 (08:04→08:42)
[2023-08-06] MEDS ORDERED: predniSONE 20 MG TAB ONE (08:33)
[2023-08-06] MEDS ORDERED: Azithromycin 250 MG TAB ONE (08:33)
[2023-08-06] MEDS ORDERED: Amoxicillin/Potassium Clav 875 MG TAB ONE (08:33)
[2023-08-06] MEDS ORDERED: Albuterol 2.5 MG (0.5 mL) NEB ONE (08:43)
[2023-08-06 09:10] LABS: Troponin I 0.016 ng/mL (< 0.028)
== END 2023-08-06 10:17 | disposition home or self-care (01) ==
LOC: ERS 07:40
DX: J42 Unspecified chronic bronchitis (principal); I10 Essential (primary) hypertension; E78.5 Hyperlipidemia, unspecified; N40.0 Benign prostatic hyperplasia without lower urinary tract symptoms; Z79.899 Other long term (current) drug therapy
CPT/HCPCS: 36415; 71045; 84484; 93005; J7512; J7611; J7620

== ENCOUNTER 2024-06-29 10:00 | Inpatient (IN) | payer MEDICARE ==
[2024-06-29 13:39] VITALS: BMI 25.8
[2024-07-02] MEDS ORDERED: Heparin 10,000 UNITS/ 10 ML VIAL ONE (07:14)
[2024-07-02] MEDS ORDERED: Protamine Sulfate 50 MG/5 ML VIAL ONE (07:15)
[2024-07-02] MEDS ORDERED: CEFAZOLIN 2 GM VIAL ONE (07:15)
[2024-07-02] MEDS ORDERED: Ipratropium/Albuterol 3 ML NEB ONE (07:17)
[2024-07-02] MEDS ORDERED: PROPOFOL 20 ML ONE (07:34)
[2024-07-02] MEDS ORDERED: Lidocaine 1% (PF) 30 ML VIAL ONE (07:34)
[2024-07-02] MEDS ORDERED: fentaNYL 50 mcg/mL 1 mL Vial ONE (07:34)
[2024-07-02] MEDS ORDERED: Phenylephrine 40 MG/NS 250 ML 250 ML ONE (07:34)
[2024-07-02] MEDS ORDERED: Rocuronium Bromide 50 MG/5 ML VIAL ONE (07:47)
[2024-07-02] MEDS ORDERED: diphenhydrAMINE 50 MG/ML VIAL ONE (08:22)
[2024-07-02] MEDS ORDERED: SUGAMMADEX SODIUM 200 MG/2 ML VIAL ONE (09:10)
[2024-07-02] MEDS ORDERED: Iopamidol 370 76% 100 ML VIAL ONE (09:53)
== END 2024-07-02 14:11 | disposition home or self-care (01) | DRG 274 ==
LOC: SURG A 07-02 05:50
PROVIDERS: ADMIT Internal Medicine Cardiovascular Disease; ATTEND Internal Medicine Cardiovascular Disease
PROC: 02L73DK Occlusion of Left Atrial Appendage with Intraluminal Device, Percutaneous Approach (ICD-10-PCS; principal; 2024-07-02)
PROC: B245ZZ4 Ultrasonography of Left Heart, Transesophageal (ICD-10-PCS; 2024-07-02)
DX: I48.0 Paroxysmal atrial fibrillation (principal); Z00.6 Encounter for examination for normal comparison and control in clinical research program; K92.2 Gastrointestinal hemorrhage, unspecified; J44.1 Chronic obstructive pulmonary disease with (acute) exacerbation; I10 Essential (primary) hypertension; I44.2 Atrioventricular block, complete; Z79.01 Long term (current) use of anticoagulants; Z95.0 Presence of cardiac pacemaker; Z91.09 Other allergy status, other than to drugs and biological substances; Z79.891 Long term (current) use of opiate analgesic
CPT/HCPCS: 33340; 80053; 85025; 85347; 85610; 85730; 86850; 86900; 86901; 93005; 93306; 93312; C1759; C1760; C1889; C1894; J1200; J1644; J2704; J2720; J3010; J7620; Q9967

== ENCOUNTER 2024-06-29 13:13 | Outpatient (CLI) | payer MEDICARE ==
[2024-06-29 14:24] LABS: #Basophils 0.07 10x3/uL (0.0-0.2); %Basophils 0.8 % (0.0-1.0); %Eosinophils 4.1 % (0.0-10.0); %Lymphocytes 21.2 % (21.0-51.0); %Monocytes 12.7 % (0.0-10.0); Hematocrit 42.6 % (42.0-52.0); Hemoglobin 13.9 g/dL (14.0-18.0); Mean Corpuscular HGB CONC 32.6 g/dL (32.0-36.0); Mean Platelet Volume 9.8 fL (7.4-10.4); Platelet Count 307 10x3/uL (130-400); RBC Distribution Width 14.5 % (11.5-14.5); Red Blood Cell (RBC) Count 4.63 mill/uL (4.70-6.10)
[2024-06-29 14:38] LABS: INR-International Normal Ratio 1.2; Prothrombin Time 14.8 sec (12.0-14.7)
[2024-06-29 14:39] LABS: PTT 29.8 sec (22.9-36.1)
[2024-06-29 14:43] LABS: ALT (SGPT) 12 U/L (8-55); AST (SGOT) 17 U/L (5-34); Albumin 3.6 g/dL (3.4-4.8); Alkaline Phosphatase 95 U/L (40-110); Anion Gap 14 mmol/L (10-20); BUN (Urea Nitrogen) 18 mg/dL (8.4-25.7); Bilirubin, Total 0.4 mg/dL (0.2-1.2); Calc. Creatinine Clearance 0 mL/min (70-130); Carbon Dioxide 24 mmol/L (23-31); Chloride 104 mmol/L (98-107); Estimated GFR 47; Glucose 116 mg/dL (83-110); Potassium 4.9 mmol/L (3.5-5.1); Protein, Total 7.6 g/dL (5.8-8.1); Sodium 137 mmol/L (136-145)
== END 2024-06-29 13:14 | disposition home or self-care (01) ==
LOC: LABBT 13:13
PROVIDERS: ATTEND Internal Medicine Cardiovascular Disease
DX: Z01.818 Encounter for other preprocedural examination (principal); I48.0 Paroxysmal atrial fibrillation; K92.2 Gastrointestinal hemorrhage, unspecified
CPT/HCPCS: 80053; 85025; 85610; 85730; 93005; 93010

== ENCOUNTER 2024-07-28 10:45 | Observation (INO) | payer MEDICARE ==
[2024-07-28] MEDS ORDERED: Dexamethasone 4 MG TAB ONE (11:53)
[2024-07-28] MEDS ORDERED: Ipratropium Bromide 2.5 ml Neb ONE ×2 (11:55→12:03)
[2024-07-28] MEDS ORDERED: Albuterol 2.5 MG (3 mL) NEB ONE (12:03)
[2024-07-28] MEDS ORDERED: Magnesium 2 GM/50 ML BAG (IN WATER) ONE (12:22)
[2024-07-28 12:37] LABS: #Basophils 0.04 10x3/uL (0.0-0.2); %Basophils 0.6 % (0.0-1.0); %Eosinophils 3.8 % (0.0-10.0); %Lymphocytes 23.8 % (21.0-51.0); %Monocytes 13.2 % (0.0-10.0); %Neutrophils 58.4 % (42.0-75.0); Hematocrit 38.8 % (42.0-52.0); Hemoglobin 12.7 g/dL (14.0-18.0); Mean Corpuscular HGB CONC 32.7 g/dL (32.0-36.0); Mean Corpuscular Hemoglobin 30.6 pg (27.0-31.0); Mean Corpuscular Volume 93.5 fL (78.0-98.0); Mean Platelet Volume 8.9 fL (7.4-10.4); Platelet Count 217 10x3/uL (130-400); RBC Distribution Width 13.5 % (11.5-14.5); Red Blood Cell (RBC) Count 4.15 mill/uL (4.70-6.10)
[2024-07-28 12:53] LABS: INR-International Normal Ratio 1.5; PTT 33.2 sec (22.9-36.1); Prothrombin Time 18.3 sec (12.0-14.7)
[2024-07-28 12:56] LABS: ALT (SGPT) 12 U/L (Less than 45); AST (SGOT) 30 U/L (11-34); Albumin 3.6 g/dL (3.1-4.5); Alkaline Phosphatase 83 U/L (40-110); Anion Gap 18 mmol/L (10-20); BUN (Urea Nitrogen) 20 mg/dL (8.4-25.7); Bilirubin, Total 0.5 mg/dL (0.3-1.2); Calc. Creatinine Clearance 0 mL/min (70-130); Calcium 9.7 mg/dL (7.8-10.44); Carbon Dioxide 24 mmol/L (23-31); Chloride 103 mmol/L (98-107); Estimated GFR 47; Globulin 4.1 g/dL (2.4-3.5); Glucose 111 mg/dL (83-110); Magnesium 2.5 mg/dL (1.6-2.6); Potassium 5.1 mmol/L (3.5-5.1); Protein, Total 7.7 g/dL (5.8-8.1); Sodium 140 mmol/L (136-145)
[2024-07-28] MEDS ORDERED: Sodium Chloride 0.9% 100 ML ONE (13:26)
[2024-07-28] MEDS ORDERED: cefTRIAXone (ROCEPHIN) 2 GM VIAL ONE (13:26)
[2024-07-28] MEDS ORDERED: Senokot S 8.6-50 MG TAB PO PRN (13:33)
[2024-07-28] MEDS ORDERED: Calcium Carbonate 500 MG ChewTAB PO PRN (13:33)
[2024-07-28] MEDS ORDERED: Ondansetron ODT 4 MG TAB PO PRN (13:33)
[2024-07-28] MEDS ORDERED: Benzonatate 100 MG CAP PO PRN (13:36)
[2024-07-28] MEDS ORDERED: Albuterol 2.5 MG (3 mL) NEB NEB PRN (14:00)
[2024-07-28] MEDS ORDERED: Azithromycin 500 MG VIAL ONE (14:56)
[2024-07-28 17:06] VITALS: BMI 25.0
[2024-07-28] MEDS: methylPREDNISolone Sod Succ/PF 125 MG/2 ML VIAL IVP SCH (17:19)
[2024-07-28] MEDS: hydrALAZINE 20 MG/ML VIAL SLOW IVP SCH (17:54)
[2024-07-28] MEDS: Ipratropium/Albuterol 3 ML NEB NEB SCH (17:59)
[2024-07-28] MEDS: Apixaban 5 MG TAB PO SCH (20:43)
[2024-07-28] MEDS: HYDROcodone/Acetaminophen 10/325 mg Tablet PO PRN (20:43)
[2024-07-28] MEDS: Magnesium Oxide 400 MG TAB PO SCH (20:44)
[2024-07-28] MEDS: Doxycycline 100 MG in Sodium Chloride 0.9% 100 ML IVPB SCH (20:45)
[2024-07-28] MEDS: Melatonin 3 MG TAB PO SCH (22:56)
[2024-07-29] MEDS: Fluticasone Propionate Nasal Spray 16 gm Bottle NASAL PRN (02:47)
[2024-07-29] MEDS: methylPREDNISolone Sod Succ 40 MG VIAL IVP SCH ×2 (05:52→12:40)
[2024-07-29] MEDS: hydrALAZINE 25 MG TAB PO SCH (06:26)
[2024-07-29 06:35] LABS: #Basophils Less than 0.03 10x3/uL (0.0-0.2); #Eosinophils Less than 0.03 10x3/uL (0.0-0.7); %Lymphocytes 13.6 % (21.0-51.0); %Monocytes 13.4 % (0.0-10.0); %Neutrophils 72.7 % (42.0-75.0); Hemoglobin 12.7 g/dL (14.0-18.0); Mean Corpuscular HGB CONC 33.4 g/dL (32.0-36.0); Mean Corpuscular Hemoglobin 30.7 pg (27.0-31.0); Mean Corpuscular Volume 91.8 fL (78.0-98.0); Mean Platelet Volume 9.1 fL (7.4-10.4); Platelet Count 230 10x3/uL (130-400); RBC Distribution Width 13.8 % (11.5-14.5); Red Blood Cell (RBC) Count 4.14 mill/uL (4.70-6.10)
[2024-07-29 07:01] LABS: ALT (SGPT) 11 U/L (Less than 45); AST (SGOT) 23 U/L (11-34); Albumin 3.6 g/dL (3.1-4.5); Alkaline Phosphatase 77 U/L (40-110); Anion Gap 17 mmol/L (10-20); BUN (Urea Nitrogen) 27 mg/dL (8.4-25.7); Bilirubin, Total 0.4 mg/dL (0.3-1.2); Calc. Creatinine Clearance 36 mL/min (70-130); Calcium 9.4 mg/dL (7.8-10.44); Carbon Dioxide 20 mmol/L (23-31); Chloride 104 mmol/L (98-107); Estimated GFR 43; Globulin 3.9 g/dL (2.4-3.5); Glucose 142 mg/dL (83-110); Magnesium 2.4 mg/dL (1.6-2.6); Potassium 4.1 mmol/L (3.5-5.1); Protein, Total 7.5 g/dL (5.8-8.1); Sodium 137 mmol/L (136-145)
[2024-07-29] MEDS ORDERED: NIFEdipine XL 30 MG ER.TAB PO SCH (09:00)
[2024-07-29] MEDS: Sodium Chloride 0.9% 100 ML ONE (10:08)
[2024-07-29] MEDS: Atenolol 50 MG TAB PO SCH (10:10)
[2024-07-29] MEDS: Pantoprazole 40 MG DR.TAB PO SCH (10:11)
[2024-07-29] MEDS: Montelukast Sodium 10 mg Tablet PO SCH (10:11)
[2024-07-29 12:52] VITALS: BP 167/78; TEMP 98.7
[2024-07-30] MEDS ORDERED: FLU (Fluad Triv) TS24-25 (65UP)/MF59C/PF 45 MCG/0.5 ML Syringe IM ONE (09:00)
== END 2024-07-29 13:15 | disposition home or self-care (01) ==
LOC: SUATTDRO 10:45 → ERS 10:45 → SURG B 13:27
PROVIDERS: ADMIT Internal Medicine; ATTEND Internal Medicine
DX: J44.1 Chronic obstructive pulmonary disease with (acute) exacerbation (principal); I12.9 Hypertensive chronic kidney disease with stage 1 through stage 4 chronic kidney disease, or unspecified chronic kidney disease; N18.9 Chronic kidney disease, unspecified; I48.91 Unspecified atrial fibrillation; E78.5 Hyperlipidemia, unspecified; Z95.818 Presence of other cardiac implants and grafts; Z91.041 Radiographic dye allergy status; Z79.01 Long term (current) use of anticoagulants; Z79.51 Long term (current) use of inhaled steroids; Z79.899 Other long term (current) drug therapy
CPT/HCPCS: 71045; 80053 ×2; 83605; 83735 ×2; 83880; 84484; 85025 ×2; 85610; 85730; 87428; 93005; 94640 ×3; 94644; 96365; 96367; 96375; 96376; 99285; G0378 ×3; J0360; J0456; J0696; J2919; J3475; J7644; 36415; J7611; J7620; J8540

== ENCOUNTER 2025-01-15 05:49 | Day surgery (SDC) | payer MEDICARE ==
[2025-01-10 10:57] VITALS: BMI 27.3
[2025-01-15] MEDS ORDERED: Lidocaine 1% PF 5 ML VIAL ONE (08:26)
[2025-01-15] MEDS ORDERED: PROPOFOL 200 MG/20 ML VIAL ONE (08:26)
== END 2025-01-15 09:55 | disposition home or self-care (01) ==
LOC: SDC 05:49
PROVIDERS: ATTEND Internal Medicine Cardiovascular Disease
PROC: B245ZZ4 Ultrasonography of Left Heart, Transesophageal (ICD-10-PCS; principal; 2025-01-15)
DX: I48.0 Paroxysmal atrial fibrillation (principal); Z91.041 Radiographic dye allergy status
CPT/HCPCS: 93312; J2704; J7620

== ENCOUNTER 2025-02-14 10:29 | Outpatient (CLI) | payer MEDICARE | END 2025-02-14 10:30 | disposition home or self-care (01) | LOC: RAD 10:29 | PROVIDERS: ATTEND Internal Medicine Critical Care Medicine | DX: R06.00 Dyspnea, unspecified (principal) | CPT/HCPCS: 71046 ==

== ENCOUNTER 2025-05-02 18:22 | Inpatient (IN) | payer MEDICARE ==
[2025-05-02 19:07] LABS: #Basophils 0.05 10x3/uL (0.0-0.2); #Eosinophils 0.46 10x3/uL (0.0-0.7); #Monocytes 1.16 10x3/uL (0.11-0.59); #Neutrophils 3.77 10x3/uL (1.40-6.50); %Basophils 0.7 % (0.0-1.0); %Eosinophils 6.2 % (0.0-10.0); %Lymphocytes 25.9 % (21.0-51.0); %Monocytes 15.7 % (0.0-10.0); %Neutrophils 51.1 % (42.0-75.0); Hematocrit 36.7 % (42.0-52.0); Hemoglobin 12.0 g/dL (14.0-18.0); Mean Corpuscular Hemoglobin 32.8 pg (27.0-31.0); Mean Corpuscular Volume 100.3 fL (78.0-98.0); Platelet Count 235 10x3/uL (130-400); Red Blood Cell (RBC) Count 3.66 mill/uL (4.70-6.10); White Blood Cell (WBC) Count 7.38 10x3/uL (4.8-10.8)
[2025-05-02 19:21] LABS: ALT (SGPT) 25 U/L (Less than 45); AST (SGOT) 31 U/L (11-34); Albumin 3.8 g/dL (3.1-4.5); Alkaline Phosphatase 92 U/L (40-110); Anion Gap 15 mmol/L (10-20); BUN (Urea Nitrogen) 31 mg/dL (8.4-25.7); Bilirubin, Total 0.4 mg/dL (0.3-1.2); Calc. Creatinine Clearance 0 mL/min (70-130); Calcium 9.3 mg/dL (7.8-10.44); Carbon Dioxide 17 mmol/L (23-31); Chloride 106 mmol/L (98-107); Globulin 3.9 g/dL (2.4-3.5); Glucose 106 mg/dL (83-110); Potassium 4.9 mmol/L (3.5-5.1); Sodium 133 mmol/L (136-145)
[2025-05-02] MEDS ORDERED: Acetaminophen 325 MG TAB PO PRN (21:51)
[2025-05-03] MEDS ORDERED: Artificial Tear Ophth Sol 15 ML BOT EA EYE PRN (02:24)
[2025-05-03 03:54] VITALS: BMI 28.1
[2025-05-03] MEDS: Melatonin 3 MG TAB PO SCH (04:00)
[2025-05-03 04:56] LABS: #Basophils Less than 0.03 10x3/uL (0.0-0.2); #Eosinophils Less than 0.03 10x3/uL (0.0-0.7); #Monocytes 0.09 10x3/uL (0.11-0.59); #Neutrophils 3.81 10x3/uL (1.40-6.50); %Basophils 0.2 % (0.0-1.0); %Eosinophils 0.0 % (0.0-10.0); %Lymphocytes 9.0 % (21.0-51.0); %Monocytes 2.1 % (0.0-10.0); %Neutrophils 88.5 % (42.0-75.0); Hematocrit 35.4 % (42.0-52.0); Hemoglobin 11.6 g/dL (14.0-18.0); Mean Corpuscular Hemoglobin 32.8 pg (27.0-31.0); Mean Corpuscular Volume 100.0 fL (78.0-98.0); Platelet Count 221 10x3/uL (130-400); Red Blood Cell (RBC) Count 3.54 mill/uL (4.70-6.10); White Blood Cell (WBC) Count 4.31 10x3/uL (4.8-10.8)
[2025-05-03 05:20] LABS: ALT (SGPT) 23 U/L (Less than 45); AST (SGOT) 24 U/L (11-34); Albumin 3.5 g/dL (3.1-4.5); Alkaline Phosphatase 86 U/L (40-110); Anion Gap 15 mmol/L (10-20); BUN (Urea Nitrogen) 29 mg/dL (8.4-25.7); Bilirubin, Total 0.3 mg/dL (0.3-1.2); Calc. Creatinine Clearance 33 mL/min (70-130); Calcium 9.0 mg/dL (7.8-10.44); Carbon Dioxide 18 mmol/L (23-31); Chloride 110 mmol/L (98-107); Globulin 3.6 g/dL (2.4-3.5); Glucose 176 mg/dL (83-110); Potassium 4.9 mmol/L (3.5-5.1); Sodium 138 mmol/L (136-145)
[2025-05-03] MEDS ORDERED: Non-Formulary Item 1 EACH (Magnesium Oxide [Magnesium] 400 MG Tablet) PO SCH (09:00)
[2025-05-03] MEDS: Ferrous Sulfate 325 MG TAB PO SCH (09:26)
[2025-05-03] MEDS: predniSONE 20 MG TAB PO SCH (09:26)
[2025-05-03] MEDS: Pantoprazole 40 MG DR.TAB PO SCH (09:26)
[2025-05-03] MEDS: Aspirin 81 mg Enteric Coated Tablet PO SCH (09:26)
[2025-05-03] MEDS: Allopurinol 100 MG TAB PO SCH (09:26)
[2025-05-03] MEDS: Enoxaparin 30 MG (0.3 mL) SYRINGE SC SCH (09:27)
[2025-05-03] MEDS: Rosuvastatin 10 MG TAB PO SCH (09:27)
[2025-05-03] MEDS: Losartan 25 MG TAB PO SCH (09:27)
[2025-05-03] MEDS: Atenolol 50 MG TAB PO SCH (09:27)
[2025-05-03] MEDS: HYDROcodone/Acetaminophen 10/325 mg Tablet PO PRN (19:42)
[2025-05-03] MEDS ORDERED: Magnesium Oxide 400 MG TAB PO SCH (21:00)
[2025-05-03] MEDS: diphenhydrAMINE 25 MG CAP PO SCH ×2 (21:44→21:49)
[2025-05-04 05:36] LABS: #Basophils Less than 0.03 10x3/uL (0.0-0.2); #Eosinophils Less than 0.03 10x3/uL (0.0-0.7); #Monocytes 1.09 10x3/uL (0.11-0.59); #Neutrophils 6.68 10x3/uL (1.40-6.50); %Basophils 0.1 % (0.0-1.0); %Eosinophils 0.0 % (0.0-10.0); %Lymphocytes 9.8 % (21.0-51.0); %Monocytes 12.6 % (0.0-10.0); %Neutrophils 77.3 % (42.0-75.0); Hematocrit 34.7 % (42.0-52.0); Hemoglobin 11.7 g/dL (14.0-18.0); Mean Corpuscular Hemoglobin 33.1 pg (27.0-31.0); Mean Corpuscular Volume 98.3 fL (78.0-98.0); Platelet Count 251 10x3/uL (130-400); Red Blood Cell (RBC) Count 3.53 mill/uL (4.70-6.10); White Blood Cell (WBC) Count 8.65 10x3/uL (4.8-10.8)
[2025-05-04 06:04] LABS: ALT (SGPT) 22 U/L (Less than 45); AST (SGOT) 33 U/L (11-34); Albumin 3.7 g/dL (3.1-4.5); Alkaline Phosphatase 80 U/L (40-110); Anion Gap 14 mmol/L (10-20); BUN (Urea Nitrogen) 20 mg/dL (8.4-25.7); Bilirubin, Total 0.3 mg/dL (0.3-1.2); Calc. Creatinine Clearance 44 mL/min (70-130); Calcium 9.4 mg/dL (7.8-10.44); Carbon Dioxide 22 mmol/L (23-31); Chloride 108 mmol/L (98-107); Globulin 3.6 g/dL (2.4-3.5); Glucose 110 mg/dL (83-110); Potassium 4.3 mmol/L (3.5-5.1); Sodium 140 mmol/L (136-145)
[2025-05-04] MEDS: hydrALAZINE 20 MG/ML VIAL SLOW IVP PRN (06:34)
[2025-05-05 04:53] LABS: #Basophils Less than 0.03 10x3/uL (0.0-0.2); #Eosinophils Less than 0.03 10x3/uL (0.0-0.7); #Monocytes 0.97 10x3/uL (0.11-0.59); #Neutrophils 5.56 10x3/uL (1.40-6.50); %Basophils 0.0 % (0.0-1.0); %Eosinophils 0.0 % (0.0-10.0); %Lymphocytes 12.2 % (21.0-51.0); %Monocytes 13.0 % (0.0-10.0); %Neutrophils 74.3 % (42.0-75.0); Hematocrit 36.1 % (42.0-52.0); Hemoglobin 11.8 g/dL (14.0-18.0); Mean Corpuscular Hemoglobin 32.5 pg (27.0-31.0); Mean Corpuscular Volume 99.4 fL (78.0-98.0); Platelet Count 212 10x3/uL (130-400); Red Blood Cell (RBC) Count 3.63 mill/uL (4.70-6.10); White Blood Cell (WBC) Count 7.48 10x3/uL (4.8-10.8)
[2025-05-05 05:10] LABS: ALT (SGPT) 32 U/L (Less than 45); AST (SGOT) 46 U/L (11-34); Albumin 3.8 g/dL (3.1-4.5); Alkaline Phosphatase 73 U/L (40-110); Anion Gap 16 mmol/L (10-20); BUN (Urea Nitrogen) 27 mg/dL (8.4-25.7); Bilirubin, Total 0.4 mg/dL (0.3-1.2); Calc. Creatinine Clearance 38 mL/min (70-130); Calcium 9.6 mg/dL (7.8-10.44); Carbon Dioxide 21 mmol/L (23-31); Chloride 109 mmol/L (98-107); Globulin 3.5 g/dL (2.4-3.5); Glucose 104 mg/dL (83-110); Potassium 4.3 mmol/L (3.5-5.1); Sodium 142 mmol/L (136-145)
[2025-05-06 04:23] LABS: #Basophils Less than 0.03 10x3/uL (0.0-0.2); #Eosinophils Less than 0.03 10x3/uL (0.0-0.7); #Monocytes 1.22 10x3/uL (0.11-0.59); #Neutrophils 5.55 10x3/uL (1.40-6.50); %Basophils 0.1 % (0.0-1.0); %Eosinophils 0.1 % (0.0-10.0); %Lymphocytes 16.8 % (21.0-51.0); %Monocytes 14.9 % (0.0-10.0); %Neutrophils 67.6 % (42.0-75.0); Hematocrit 36.8 % (42.0-52.0); Hemoglobin 12.0 g/dL (14.0-18.0); Mean Corpuscular Hemoglobin 32.7 pg (27.0-31.0); Mean Corpuscular Volume 100.3 fL (78.0-98.0); Platelet Count 214 10x3/uL (130-400); Red Blood Cell (RBC) Count 3.67 mill/uL (4.70-6.10); White Blood Cell (WBC) Count 8.21 10x3/uL (4.8-10.8)
[2025-05-06 04:46] LABS: ALT (SGPT) 46 U/L (Less than 45); AST (SGOT) 47 U/L (11-34); Albumin 3.7 g/dL (3.1-4.5); Alkaline Phosphatase 74 U/L (40-110); Anion Gap 14 mmol/L (10-20); BUN (Urea Nitrogen) 28 mg/dL (8.4-25.7); Bilirubin, Total 0.4 mg/dL (0.3-1.2); Calc. Creatinine Clearance 40 mL/min (70-130); Calcium 9.2 mg/dL (7.8-10.44); Carbon Dioxide 24 mmol/L (23-31); Chloride 107 mmol/L (98-107); Globulin 3.4 g/dL (2.4-3.5); Glucose 103 mg/dL (83-110); Potassium 4.3 mmol/L (3.5-5.1); Sodium 141 mmol/L (136-145)
[2025-05-06] MEDS: Enoxaparin 40 MG (0.4 mL) SYRINGE SC SCH (09:47)
[2025-05-06] MEDS: FLU (Fluad Triv) 25-26 (65UP)PF 45 MCG/0.5 ML Syringe IM ONE (09:52)
[2025-05-06] MEDS: ALPRAZolam 0.25 MG TAB PO PRN (15:39)
[2025-05-06] MEDS: Magnesium Sulfate In Water 4 GM in Premix 1 BAG IVPB SCH (15:42)
[2025-05-06] MEDS: LevoFLOXacin 750 mg/D5W 750 MG in Premix 1 BAG IVPB SCH (15:43)
[2025-05-07 05:43] LABS: ALT (SGPT) 47 U/L (Less than 45); AST (SGOT) 36 U/L (11-34); Albumin 3.6 g/dL (3.1-4.5); Alkaline Phosphatase 68 U/L (40-110); Anion Gap 19 mmol/L (10-20); BUN (Urea Nitrogen) 37 mg/dL (8.4-25.7); Bilirubin, Total 0.3 mg/dL (0.3-1.2); Calc. Creatinine Clearance 36 mL/min (70-130); Calcium 9.1 mg/dL (7.8-10.44); Carbon Dioxide 19 mmol/L (23-31); Chloride 107 mmol/L (98-107); Globulin 3.5 g/dL (2.4-3.5); Glucose 152 mg/dL (83-110); Potassium 4.5 mmol/L (3.5-5.1); Sodium 140 mmol/L (136-145)
[2025-05-07 05:47] LABS: #Basophils Less than 0.03 10x3/uL (0.0-0.2); #Eosinophils Less than 0.03 10x3/uL (0.0-0.7); #Monocytes 0.33 10x3/uL (0.11-0.59); #Neutrophils 6.13 10x3/uL (1.40-6.50); %Basophils 0.0 % (0.0-1.0); %Eosinophils 0.0 % (0.0-10.0); %Lymphocytes 7.7 % (21.0-51.0); %Monocytes 4.7 % (0.0-10.0); %Neutrophils 86.9 % (42.0-75.0); Hematocrit 35.2 % (42.0-52.0); Hemoglobin 12.0 g/dL (14.0-18.0); Mean Corpuscular Hemoglobin 33.6 pg (27.0-31.0); Mean Corpuscular Volume 98.6 fL (78.0-98.0); Platelet Count 226 10x3/uL (130-400); Red Blood Cell (RBC) Count 3.57 mill/uL (4.70-6.10); White Blood Cell (WBC) Count 7.05 10x3/uL (4.8-10.8)
[2025-05-07] MEDS: Enoxaparin 30 MG (0.3 mL) SYRINGE SC SCH (09:02)
[2025-05-07 15:01] VITALS: BP 166/77; TEMP 99.2
== END 2025-05-07 14:41 | disposition home or self-care (01) | DRG 189 ==
LOC: ERS 18:22 → 2NO 05-03 03:15
PROVIDERS: ADMIT Family Medicine; ATTEND Family Medicine
DX: J96.01 Acute respiratory failure with hypoxia (principal); J45.901 Unspecified asthma with (acute) exacerbation; N17.9 Acute kidney failure, unspecified; E87.1 Hypo-osmolality and hyponatremia; Z66 Do not resuscitate; N18.9 Chronic kidney disease, unspecified; I12.9 Hypertensive chronic kidney disease with stage 1 through stage 4 chronic kidney disease, or unspecified chronic kidney disease; J32.9 Chronic sinusitis, unspecified; D63.1 Anemia in chronic kidney disease; R74.01 Elevation of levels of liver transaminase levels; I48.91 Unspecified atrial fibrillation; N40.0 Benign prostatic hyperplasia without lower urinary tract symptoms; Z91.041 Radiographic dye allergy status; Z79.899 Other long term (current) drug therapy; Z79.82 Long term (current) use of aspirin; Z98.890 Other specified postprocedural states; Z87.891 Personal history of nicotine dependence
CPT/HCPCS: 36415; 71045; 80053; 85025; 87428; 93005; 94640; 94760; J0360; J1650; J1956; J2919; J3475; J7120; J7512; J7626

== ENCOUNTER 2025-05-10 10:15 | Outpatient (CLI) | payer MEDICARE | END 2025-05-10 10:16 | disposition home or self-care (01) | LOC: PET 10:15 | PROVIDERS: ATTEND Internal Medicine | DX: D47.2 Monoclonal gammopathy (principal); C90.00 Multiple myeloma not having achieved remission | CPT/HCPCS: 78815; A9552 ==